=== PATIENT | female | born 1945 | race Caucasian/White ===

== ENCOUNTER 2022-03-15 11:32 | Inpatient (IN) ==
--- NOTE | 2022-03-15 11:58 | Emergency Department Note ---
History of Present Illness General Chief complaint: Shortness of Breath/Dyspnea Stated complaint: SOB Time Seen by Provider: 03/15/22 11:42 Source: patient History of Present Illness 76-year-old female with a history of atrial fibrillation presents via EMS with a 1 day history of shortness of breath, dyspnea on exertion. Patient denies cough cold congestion symptoms, denies fever. Patient states that the shortness of breath reportedly worsened this morning. Patient called EMS she was given a DuoNeb and an albuterol inhaler treatment prior to arrival. Patient was also started on oxygen reportedly her pulse ox may have been in the low 80s. Patient states much improved after the oxygen. There are no other mitigating or alleviating factors Home Medications Medication Instructions Recorded Confirmed Type acetaminophen 500 mg tablet 1,000 mg PO BID PRN 03/15/22 03/15/22 History bupropion HCl 300 mg 24 hr tablet, 300 mg PO DAILY 03/15/22 03/15/22 History extended release escitalopram oxalate 20 mg tablet 20 mg PO DAILY 03/15/22 03/15/22 History furosemide 40 mg tablet See Rx Instructions .ROUTE .COMPLEX 03/15/22 03/15/22 History lisinopril 20 mg tablet 20 mg PO DAILY 03/15/22 03/15/22 History metoprolol tartrate 25 mg tablet 25 mg PO BID 03/15/22 03/15/22 History montelukast 10 mg tablet 10 mg PO QPM 03/15/22 03/15/22 History multivitamin 1 tab PO DAILY 03/15/22 03/15/22 History oxybutynin chloride 15 mg 15 mg PO DAILY 03/15/22 03/15/22 History tablet,extended release 24 hr pregabalin 100 mg capsule 100 mg PO BID 03/15/22 03/15/22 History warfarin 2.5 mg tablet 2.5 mg PO [id number] 03/15/22 03/15/22 History warfarin 5 mg tablet 5 mg PO 2XWK 03/15/22 03/15/22 History Allergies Allergy/AdvReac Type Severity Reaction Status Date / Time Penicillins Allergy Intermediate HIVES Verified 03/15/22 14:28 Sulfa (Sulfonamide Allergy Unknown ` Verified 03/15/22 14:28 Antibiotics) aspirin AdvReac Severe BLEEDING Verified 03/15/22 14:28 ULCER Past Med/Surg History Social History Smoking Status: Former smoker Hx Alcohol Use: No Hx Substance Use: No Communication Ability: Effective Tool Adjuster Required: No Beliefs That Will Affect Care: None Current Living Situation: Alone Current Living Situation Comment: friend helps with grocery shopping, takes van to appointments Feels Safe at Home: Yes Assistive Devices: Glasses and Walker Immunizations: Medical history atrial fibrillation, hypertension, high cholesterol, melanoma; surgical history left great toe amputation; Social history non-smoker Review of Systems A total of 10 systems reviewed and were otherwise negative Constitutional: no fever Cardiovascular: + dyspnea, + dyspnea on exertion and + orthopnea; no chest pain Integumentary: + rash, + non-healing lesions and + skin ulcer Physical Exam Vital Signs Vital Signs - 24 hr 03/15/22 11:45 03/15/22 11:47 03/15/22 11:51 Temperature 37.1 C Temperature Source Oral Pulse Rate 112 H 112 H Pulse Rate [Right Finger] Pulse Rate from SpO2 Sensor 109 H Pulse Rhythm Irregular Pulse Rhythm [Right Finger] Pulse Strength Normal Pulse Strength [Right Finger] Respiratory Rate 23 26 H Respiratory Effort / Characteristics Spontaneous Respiratory Depth Deep Respiratory Pattern Tachypnea Blood Pressure 117/89 Blood Pressure [Left Arm] Blood Pressure Mean 98 Blood Pressure Mean [Left Arm] Blood Pressure Position Lying Blood Pressure Position [Left Arm] Pulse Oximetry 100 100 Oxygen Delivery Method Nasal Cannula Nasal Cannula Oxygen Flow Rate 5 2 Sepsis Recent Fever Within 48 Hours No Sepsis New/Unexplained Change in Mental Status No Sepsis Action Taken by Nursing MD Previously Notified Oxygen Flow Rate - Titration 2 Pulse Oximetry Post Tiitration 97 03/15/22 12:00 03/15/22 12:27 03/15/22 12:30 Temperature Temperature Source Pulse Rate 112 H 112 H 118 H Pulse Rate [Right Finger] Pulse Rate from SpO2 Sensor 120 H 117 H Pulse Rhythm Pulse Rhythm [Right Finger] Pulse Strength Pulse Strength [Right Finger] Respiratory Rate 32 H 18 Respiratory Effort / Characteristics Respiratory Depth Respiratory Pattern Blood Pressure 117/89 Blood Pressure [Left Arm] Blood Pressure Mean Blood Pressure Mean [Left Arm] Blood Pressure Position Blood Pressure Position [Left Arm] Pulse Oximetry 94 96 Oxygen Delivery Method Oxygen Flow Rate Sepsis Recent Fever Within 48 Hours Sepsis New/Unexplained Change in Mental Status Sepsis Action Taken by Nursing Oxygen Flow Rate - Titration Pulse Oximetry Post Tiitration 03/15/22 12:40 03/15/22 13:00 03/15/22 13:01 Temperature Temperature Source Pulse Rate 98 H 93 H 95 H Pulse Rate [Right Finger] 90 Pulse Rate from SpO2 Sensor 99 H 94 H 101 H Pulse Rhythm Pulse Rhythm [Right Finger] Irregular Pulse Strength Pulse Strength [Right Finger] Normal Respiratory Rate 16 24 22 Respiratory Effort / Characteristics Non-Labored Respiratory Depth Normal Respiratory Pattern Regular Blood Pressure 122/86 98/74 L Blood Pressure [Left Arm] 98/74 L Blood Pressure Mean 98 82 Blood Pressure Mean [Left Arm] 82 Blood Pressure Position Blood Pressure Position [Left Arm] Lying Pulse Oximetry 92 98 97 Oxygen Delivery Method Room Air Oxygen Flow Rate Sepsis Recent Fever Within 48 Hours Sepsis New/Unexplained Change in Mental Status Sepsis Action Taken by Nursing Oxygen Flow Rate - Titration Pulse Oximetry Post Tiitration 03/15/22 13:30 03/15/22 14:00 03/15/22 14:01 Temperature Temperature Source Pulse Rate 99 H 103 H 96 H Pulse Rate [Right Finger] Pulse Rate from SpO2 Sensor 93 H 100 H 101 H Pulse Rhythm Pulse Rhythm [Right Finger] Pulse Strength Pulse Strength [Right Finger] Respiratory Rate 22 26 H 21 Respiratory Effort / Characteristics Respiratory Depth Respiratory Pattern Blood Pressure 91/63 L 90/57 L Blood Pressure [Left Arm] Blood Pressure Mean 72 68 Blood Pressure Mean [Left Arm] Blood Pressure Position Blood Pressure Position [Left Arm] Pulse Oximetry 93 96 91 Oxygen Delivery Method Oxygen Flow Rate Sepsis Recent Fever Within 48 Hours Sepsis New/Unexplained Change in Mental Status Sepsis Action Taken by Nursing Oxygen Flow Rate - Titration Pulse Oximetry Post Tiitration VITAL SIGNS - Vital signs and nursing notes were reviewed. GENERAL -76-year-old female appearing her stated age who is in no acute distress. Communicates well with provider and answers questions appropriately. SKIN -multiple skin lesions and ulcerative lesions to the bilateral lower extremities HEAD - NC/AT. EYES - PERRL with EOMI bilaterally. Sclera anicteric. Palpebral conjunctiva pink and moist with no injection noted. EARS - No deformities of external structures noted on gross examination bilaterally. NOSE - Midline and without cyanosis. No epistaxis or purulent drainage noted. Septum midline without deviation or septal hematoma noted. MOUTH/OROPHARYNX - Without perioral cyanosis. Buccal mucosa pink and moist and without leukoplakia. Tongue midline with equal elevation of palate bilaterally. No tonsillar hypertrophy, erythema, or exudates noted. NECK - Neck with FROM. Supple to palpation.No lymphadenopathy noted. No nuchal rigidity. LUNGS - Chest wall symmetric without accessory muscle use, intercostals retractions, or central cyanosis. Normal vesicular breath sounds CTA B/L. No wheezes, rales, or rhonchi appreciated. CARDIAC - Irregularly irregular with S1/S2. No murmur, rubs, or gallops ap preciated. ABDOMEN - Abdominal contour soft without pulsations or visible masses. BS normoactive all four quadrants. No tenderness, palpable masses, hepatosplenomegaly, or ascites noted. EXTREMITIES - No clubbing or peripheral cyanosis. Bilateral lower extremity edema, multiple skin lesions in the anterior shins and foot +5/5 strength noted in UE/LE bilaterally. NEUROLOGIC - Cranial nerves II through XII grossly intact. Sensory intact to light touch throughout.. PSYCH - A&Ox3 and cooperates fully with examiner. Pt is very pleasant and interacts well with examiner. Course Reevaluation(s) Reevaluation #1: Patient was started on IV Lopressor, IV Lasix, oxygen, and was less than 100, case was discussed with the [facility] hospitalist for admission at 1339 Administered Medications Miscellaneous (Patient's Height And/Or Weight Needed) 1 ea N/A Q2H CARLOS ENRIQUE Stop: 03/15/22 17:30 Last Admin: 03/15/22 16:44 Dose: Not Given Documented by: Discontinued Medications Furosemide (Furosemide 40 Mg/4 Ml Vial) 40 mg IV ONE ONE Stop: 03/15/22 12:20 Last Admin: 03/15/22 12:27 Dose: 40 mg Documented by: [id number] Ioversol (Optiray 320 125ml) 119 ml IV ONCE ONE Stop: 03/15/22 14:49 Last Admin: 03/15/22 14:48 Dose: 119 ml Documented by: [id number] Metoprolol Tartrate (Metoprolol Tartrate 1 Mg/Ml Vial) 5 mg IV NOW STA; Protocol Stop: 03/15/22 12:02 Last Admin: 03/15/22 12:27 Dose: 5 mg Documented by: [id number] Critical Care Time Critical Care Time: Yes Total Critical Care Time: 35 Medical Decision Making Medical Records Attestation: I reviewed the patient's medical records. Home Medications Current Medication List: was personally reviewed by me Laboratory Data Attestation: I reviewed the patient's lab results. Result diagrams: 03/15/22 11:49 03/15/22 11:49 Lab Results 03/15/22 03/15/22 03/15/22 Range/Units 11:49 11:49 11:49 WBC 9.34 (4.8-10.8) K/uL RBC 3.57 L (4.2-5.4) M/uL Hgb 11.7 L (12.0-16.0) g/dL Hct 35.6 L (37-47) % MCV 99.7 (80-100) fL MCH 32.8 (25-34) pg MCHC 32.9 (32-36) g/dL RDW Std Deviation 55.3 H (36.4-46.3) fL RDW Coeff of Shoshana 15.2 H (11.5-14.5) % Plt Count 234 (130-400) K/uL MPV 10.5 H (7.4-10.4) fL Immature Gran % (Auto) 0.3 % Neut % (Auto) 84.6 % Lymph % (Auto) 6.9 % Coffey % (Auto) 7.1 % Eos % (Auto) 0.9 % Baso % (Auto) 0.2 % Neut # (Auto) 7.91 H (1.4-6.5) K/uL Lymph # (Auto) 0.64 L (1.2-3.4) K/uL Coffey # (Auto) 0.66 H (0.11-0.59) K/uL Eos # (Auto) 0.08 (0-0.5) K/uL Baso # (Auto) 0.02 (0-0.2) K/uL Immature Gran # (Auto) 0.03 H (0.00-0.02) K/uL PT Cancelled INR Cancelled APTT Cancelled PTT Ratio Cancelled D-Dimer (0-500) ug/L FEU Sodium (136-145) mmol/L Potassium (3.5-5.1) mmol/L Chloride (98-107) mmol/L Carbon Dioxide (21-32) mmol/L Anion Gap (3-11) BUN (6-23) mg/dl Creatinine (0.6-1.2) mg/dl Est Cr Clr Drug Dosing Est GFR ( Amer) ml/min Est GFR (Non-Af Amer) ml/min BUN/Creatinine Ratio (10-20) Glucose (70-99(Fasting)) mg/dl Calcium (8.5-10.1) mg/dl Total Bilirubin (0.2-1.0) mg/dl AST (13-39) U/L ALT (7-52) U/L Alkaline Phosphatase (34-104) U/L Troponin I High Sens 15.1 H (0-14) pg/ml B-Natriuretic Peptide (0-100) pg/ml Total Protein (6.0-8.3) gm/dl Albumin (3.4-5.0) gm/dl Globulin (2.5-4.0) gm/dl Albumin/Globulin Ratio (0.9-2) SARS-CoV-2, RNA, NAAT (NEGATIVE) 03/15/22 03/15/22 03/15/22 Range/Units 11:49 11:59 12:21 WBC (4.8-10.8) K/uL RBC (4.2-5.4) M/uL Hgb (12.0-16.0) g/dL Hct (37-47) % MCV (80-100) fL MCH (25-34) pg MCHC (32-36) g/dL RDW Std Deviation (36.4-46.3) fL RDW Coeff of Shoshana (11.5-14.5) % Plt Count (130-400) K/uL MPV (7.4-10.4) fL Immature Gran % (Auto) % Neut % (Auto) % Lymph % (Auto) % Coffey % (Auto) % Eos % (Auto) % Baso % (Auto) % Neut # (Auto) (1.4-6.5) K/uL Lymph # (Auto) (1.2-3.4) K/uL Coffey # (Auto) (0.11-0.59) K/uL Eos # (Auto) (0-0.5) K/uL Baso # (Auto) (0-0.2) K/uL Immature Gran # (Auto) (0.00-0.02) K/uL PT INR APTT PTT Ratio D-Dimer (0-500) ug/L FEU Sodium 140 (136-145) mmol/L Potassium 3.9 (3.5-5.1) mmol/L Chloride 108 H (98-107) mmol/L Carbon Dioxide 25 (21-32) mmol/L Anion Gap 7 (3-11) BUN 39 H (6-23) mg/dl Creatinine 0.73 (0.6-1.2) mg/dl Est Cr Clr Drug Dosing Not Reportable Est GFR ( Amer) 94.0 ml/min Est GFR (Non-Af Amer) 81.1 ml/min BUN/Creatinine Ratio 53.4 H (10-20) Glucose 116 H (70-99(Fasting)) mg/dl Calcium 9.1 (8.5-10.1) mg/dl Total Bilirubin 0.8 (0.2-1.0) mg/dl AST 17 (13-39) U/L ALT 13 (7-52) U/L Alkaline Phosphatase 60 (34-104) U/L Troponin I High Sens (0-14) pg/ml B-Natriuretic Peptide 92 (0-100) pg/ml Total Protein 6.0 (6.0-8.3) gm/dl Albumin 3.5 (3.4-5.0) gm/dl Globulin 2.5 (2.5-4.0) gm/dl Albumin/Globulin Ratio 1.4 (0.9-2) SARS-CoV-2, RNA, NAAT NEGATIVE (NEGATIVE) 03/15/22 Range/Units 12:21 WBC (4.8-10.8) K/uL RBC (4.2-5.4) M/uL Hgb (12.0-16.0) g/dL Hct (37-47) % MCV (80-100) fL MCH (25-34) pg MCHC (32-36) g/dL RDW Std Deviation (36.4-46.3) fL RDW Coeff of Shoshana (11.5-14.5) % Plt Count (130-400) K/uL MPV (7.4-10.4) fL Immature Gran % (Auto) % Neut % (Auto) % Lymph % (Auto) % Coffey % (Auto) % Eos % (Auto) % Baso % (Auto) % Neut # (Auto) (1.4-6.5) K/uL Lymph # (Auto) (1.2-3.4) K/uL Coffey # (Auto) (0.11-0.59) K/uL Eos # (Auto) (0-0.5) K/uL Baso # (Auto) (0-0.2) K/uL Immature Gran # (Auto) (0.00-0.02) K/uL PT 14.9 H INR 1.4 H APTT 29.1 PTT Ratio 1.1 D-Dimer 840 H* (0-500) ug/L FEU Sodium (136-145) mmol/L Potassium (3.5-5.1) mmol/L Chloride (98-107) mmol/L Carbon Dioxide (21-32) mmol/L Anion Gap (3-11) BUN (6-23) mg/dl Creatinine (0.6-1.2) mg/dl Est Cr Clr Drug Dosing Est GFR ( Amer) ml/min Est GFR (Non-Af Amer) ml/min BUN/Creatinine Ratio (10-20) Glucose (70-99(Fasting)) mg/dl Calcium (8.5-10.1) mg/dl Total Bilirubin (0.2-1.0) mg/dl AST (13-39) U/L ALT (7-52) U/L Alkaline Phosphatase (34-104) U/L Troponin I High Sens (0-14) pg/ml B-Natriuretic Peptide (0-100) pg/ml Total Protein (6.0-8.3) gm/dl Albumin (3.4-5.0) gm/dl Globulin (2.5-4.0) gm/dl Albumin/Globulin Ratio (0.9-2) SARS-CoV-2, RNA, NAAT (NEGATIVE) Imaging Data Radiologist's Impression: Chest X-Ray 03/15/22 11:51 XR chest 1V portable HISTORY: 76 years-old Female Dyspnea acute shortness of breath COMPARISON: Chest radiograph 04/17/2012 TECHNIQUE: Portable AP view of the chest FINDINGS: Cardiac silhouette is enlarged. Atherosclerosis of the aorta. Bilateral reticular interstitial opacities. No pneumothorax, large pleural effusion or lobar airspace consolidation. Degenerative changes of the shoulders and spine. IMPRESSION: Cardiomegaly with bilateral reticular interstitial opacities. Pulmonary edema versus interstitial pneumonitis considered. ACT 112: Negative or not required by law. The above report was generated using voice recognition software. It may contain grammatical, syntax or spelling errors. Electronically signed by: Binu Jaime M.D. 03/15/2022 12:15 PM Chest CTA 03/15/22 14:09 CT angio chest PE protocol CT DOSE: 1068.42 mGy.cm HISTORY: 76 years-old Female with sob, elevated dimer. Acute shortness of breath with elevated d-dimer TECHNIQUE: Multiple CTA images of the chest were obtained after the intravenous administration of 119 ml Optiray. Coronal and sagittal MIPS were obtained from the axial data set and were submitted for review. All measurements were obtained according to NASCET criteria. A dose lowering technique was utilized adhering to the principles of ALARA. COMPARISON: Chest CT 12/23/2006. FINDINGS: CTA: Moderate cardiomegaly. Moderate coronary artery calcifications. Atherosclerosis of the thoracic aorta without aneurysm. Suboptimal evaluation of the pulmonary artery secondary to respiratory motion artifact. No central pulmonary emboli identified. CT CHEST: No dominant thyroid nodule is seen. No pathologically adenopathy by CT size criteria. 3 mm subpleural solid nodule of the right lung apex on image 203. Mild bilateral groundglass densities with mosaic attenuation. 3 m solid nodule right lower lobe, image 123. Mild linear subsegmental atelectasis/scarring of the left lung base. The central airways are patent. Small hiatal hernia. Unremarkable soft tissues. Degenerative changes of the shoulders and spine. No acute fracture or destructive bone lesion identified. IMPRESSION: 1. Cardiomegaly without central pulmonary emboli identified. The study is limited secondary to respiratory motion artifact. 2. Mild bilateral atelectasis with air trapping. 3. There are two low suspicion 3 mm solid nodules noted within the right lung. 4. Small hiatal hernia. Please refer to below summary of Fleischner criteria recommendations for follow- up of incidental CT nodules (Grace Montoya, Guidelines for management of small pulmonary nodules detected on CT scans: A statement from the Fleischner Society, Radiology 237: [phone].) SOLID NODULES Multiple nodules size: <6 mm * Low risk patients: no routine follow-up * high risk patients: optional CT at 12 months Note: newly detected indeterminate nodule in persons 35 years of age or older. * Low risk patients: minimal or absent history of smoking and/or other known risk factors * high risk patients: history of smoking or of other known risk factors (e.g. first degree relative with lung cancer, or exposure to asbestos, radon, uranium) * if a nodule up to 8 mm is partly solid or is ground glass further follow-up is required after 24 months to exclude possible slow growing adenocarcinoma (KARL) ACT 112: Negative or not required by law. The above report was generated using voice recognition software. It may contain grammatical, syntax or spelling errors. Electronically signed by: Binu Jaime M.D. 03/15/2022 3:52 PM ECG Data Attestation: I personally reviewed and interpreted this ECG as follows: Additional Comments: EKG interpreted by me is rapid atrial fibrillation rate of [address] segment elevation or depression normal axis poor baseline MDM Narrative Medical decision making -differential diagnosis include rapid A. fib, CHF, pneumonia metabolic derangement, anemia; plan is to check a cardiac work-up Impression & Plan Congestive heart failure, Rapid atrial fibrillation Discharge Plan Visit Data Chief Complaint: Shortness of Breath/Dyspnea Stated Complaint: SOB ED Provider: Misael Che Discharge Problem: Congestive heart failure, Rapid atrial fibrillation Patient Disposition: Admitted As Inpatient Discharge Instructions Interventions: ED Discharge Assessment Last Done: 03/15/22 15:50
[2022-03-15] MEDS ORDERED: METOPROLOL TARTRATE 1 MG/ML VIAL IV STA (12:01)
[2022-03-15 12:03] LABS: Basophils # (auto) 0.02 K/uL (0-0.2); Basophils % (auto) 0.2 %; Eosinophils # (auto) 0.08 K/uL (0-0.5); Eosinophils % (auto) 0.9 %; Hematocrit (blood only) 35.6 % (37-47); Hemoglobin 11.7 g/dL (12.0-16.0); Immature Granulocytes # (auto) 0.03 K/uL (0.00-0.02); Immature Granulocytes % (auto) 0.3 %; Lymphocytes # (auto) 0.64 K/uL (1.2-3.4); Lymphocytes % (auto) 6.9 %; Mean Corpuscular Hemoglobin 32.8 pg (25-34); Mean Corpuscular Hgb Conc 32.9 g/dL (32-36); Mean Corpuscular Volume 99.7 fL (80-100); Mean Platelet Volume 10.5 fL (7.4-10.4); Monocytes # (auto) 0.66 K/uL (0.11-0.59); Monocytes % (auto) 7.1 %; Neutrophils # (auto) 7.91 K/uL (1.4-6.5); Neutrophils % (auto) 84.6 %; Platelet Count 234 K/uL (130-400); RDW Coefficient of Variation 15.2 % (11.5-14.5); RDW Standard Deviation 55.3 fL (36.4-46.3); Red Blood Count 3.57 M/uL (4.2-5.4); White Blood Count 9.34 K/uL (4.8-10.8)
--- NOTE | 2022-03-15 12:17 | XRay Report ---
XR chest 1V portable HISTORY: 76 years-old Female Dyspnea acute shortness of breath COMPARISON: Chest radiograph 04/17/2012 TECHNIQUE: Portable AP view of the chest FINDINGS: Cardiac silhouette is enlarged. Atherosclerosis of the aorta. Bilateral reticular interstitial opacit ies. No pneumothorax, large pleural effusion or lobar airspace consolidation. Degenerative changes of the shoulders and spine. IMPRESSION: Cardiomegaly with bilateral reticular interstitial opacities. Pulmonary edema versus inte rstitial pneumonitis considered. ACT 112: Negative or not required by law. The above report was generated using voice recognition software. It may contain grammatical, syntax o r spelling errors. Electronically signed by: Binu Jaime M.D. 03/15/2022 12:15 PM
[2022-03-15] MEDS ORDERED: FUROSEMIDE 40 MG/4 ML VIAL IV ONE (12:19)
[2022-03-15 12:28] LABS: Alanine Aminotransferase 13 U/L (7-52); Albumin Globulin Ratio 1.4 (0.9-2); Albumin Level 3.5 gm/dl (3.4-5.0); Alkaline Phosphatase 60 U/L (34-104); Anion Gap 7 (3-11); Aspartate Aminotransferase 17 U/L (13-39); BUN Creatinine Ratio 53.4 (10-20); Bilirubin,Total 0.8 mg/dl (0.2-1.0); Blood Urea Nitrogen 39 mg/dl (6-23); Calcium 9.1 mg/dl (8.5-10.1); Carbon Dioxide 25 mmol/L (21-32); Chloride 108 mmol/L (98-107); Est GFR (Non-African American) 81.1 ml/min; Globulin 2.5 gm/dl (2.5-4.0); Glucose 116 mg/dl (70-99(Fasting)); Potassium 3.9 mmol/L (3.5-5.1); Sodium 140 mmol/L (136-145)
[2022-03-15 12:45] LABS: INR 1.4 (0.9-1.1); Partial Thromboplastin Ratio 1.1; Partial Thromboplastin Time 29.1 Seconds (21.0-31.0); Prothrombin Time 14.9 Seconds (9.0-12.0)
[2022-03-15 13:43] LABS: Appearance Urine Clear (Clear); Bacteria Urine Automated Negative (Negative); Bilirubin Urine Negative (Negative); Blood Urine Trace (Negative); Cast Urine Automated 0 /lpf (0-5); Color Urine Yellow; Glucose Urine UA Negative (Negative); Ketones Urine Trace (Negative); Leukocyte Esterase Urine Negative (Negative); Nitrite Urine Negative (Negative); Protein Urine Negative (Negative); RBC Urine Automated 0-4 /hpf (0-4); Specific Gravity Urine 1.009 (1.000-1.030); Urobilinogen Urine Negative (Negative); pH Urine 5.5 (4.5-7.5)
[2022-03-15 14:05] LABS: D Dimer 840 ug/L FEU (0-500)
--- NOTE | 2022-03-15 14:42 | History & Physical Report ---
Date of Service March 15, 2022 Assessment & Plan (1) Shortness of breath: (2) Atrial fibrillation: (3) Hypertension: (4) Subtherapeutic international normalized ratio (INR): (5) Leg wound, left: (6) Neuropathy: (7) Major depression, chronic: Plan: Patient presented with shortness of breath at rest with palpitations for the past day. Also reported some diarrhea over the past few days. Patient has chronic leg edema which is unchanged as well as wounds in the legs. Chest x-ray on presentation reported cardiomegaly with bilateral reticular interstitial opacities. BNP is 92. However, patient is morbidly obese. DDimer is 840 Patient did report reducing her dose of Lasix recently. Hence, pulmonary edema is possible However, patient has persistent Afib and INR is subtherapeutic. CT PE though limited due to respiratory motion artifact, did not show central PE Patient got IV Lasix in ER. Will continue home lasix IV Will monitor BM and send for c diff if still having diarrhea EKG showed Afib with RVR Trop HS is borderline at 15pg/ml. Will check again Last Echo in 02/2021 showed normal EF of 55%, severely dilated LA, moderately dilated RA, moderate MR and mild AR. Patient takes warfarin 5 mg on Wednesdays and 2.5 mg other days. Last INR check on 03/10/2022 was supratherapeutic at 3.841 patient was advised to hold Coumadin on 03/11/2022 and resume regular dose which patient reported she did. In view of subtherapeutic INR, will give warfarin 5 mg today and continue home dose Patient has chronic leg edema and orthopnea which she reports has not worsened Will hold home lisinopril for now as BP is running low normal Continue metoprolol Cardiology consult For patient's leg wounds. 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 Wound care consult Continue home lyrica Continue escitalopram and bupropion Continue oxybutynin History of Present Illness Chief Complaint: Shortness of breath Primary Care Provider: Brigette Moser DO 76-year-old woman with history of hypertension, chronic atrial fibrillation on warfarin, obesity,Reported history of melanoma on chemo who presented with shortness of breath started a day ago. Patient reported that she started having shortness of breath yesterday was occurring at rest. This was also associated with palpitations. She denied any cough, sore throat, congestion. She reports chronic orthopnea as she sleeps in a recliner. Patient reported that for the past 3 to 4 days she has been having loose stool which started after she ate some food. Denies any abdominal pain, fevers, chills, nausea, vomiting. Had only 1 bowel movement prior to presentation today. Denied any dysuria, frequency, urgency, hematuria. Patient has incontinence which she is on oxybutynin. Has chronic wounds in the legs and leg swelling. Patient reported that she cut down her Lasix 2 days ago to 40 mg daily only due to diarrhea Per ER physician, patient was noted to be hypoxic by EMS in the 80s and had to be put on 5 L of oxygen. Patient is not usually on oxygen at home. FSH Mother/Father - Hypertesnion Father - cancer Denied smoking, alcohol illicit drug use Lives alone and followed by Nichelle at home Allergies Allergy/AdvReac Type Severity Reaction Status Date / Time Penicillins Allergy Intermediate HIVES Verified 03/15/22 14:28 Sulfa (Sulfonamide Allergy Unknown ` Verified 03/15/22 14:28 Antibiotics) aspirin AdvReac Severe BLEEDING Verified 03/15/22 14:28 ULCER Home Medications Medication Instructions Recorded Confirmed Type acetaminophen 500 mg tablet 1,000 mg PO BID PRN 03/15/22 03/15/22 History bupropion HCl 300 mg 24 hr tablet, 300 mg PO DAILY 03/15/22 03/15/22 History extended release escitalopram oxalate 20 mg tablet 20 mg PO DAILY 03/15/22 03/15/22 History furosemide 40 mg tablet See Rx Instructions .ROUTE .COMPLEX 03/15/22 03/15/22 History lisinopril 20 mg tablet 20 mg PO DAILY 03/15/22 03/15/22 History metoprolol tartrate 25 mg tablet 25 mg PO BID 03/15/22 03/15/22 History montelukast 10 mg tablet 10 mg PO QPM 03/15/22 03/15/22 History multivitamin 1 tab PO DAILY 03/15/22 03/15/22 History oxybutynin chloride 15 mg 15 mg PO DAILY 03/15/22 03/15/22 History tablet,extended release 24 hr pregabalin 100 mg capsule 100 mg PO BID 03/15/22 03/15/22 History warfarin 2.5 mg tablet 2.5 mg PO 5XWK 03/15/22 03/15/22 History warfarin 5 mg tablet 5 mg PO 2XWK 03/15/22 03/15/22 History Past Med/Surg History Social History Smoking Status: Never smoker Feels Safe at Home: Yes Review of Systems Review of Systems: As detailed in HPI Physical Exam Constitutional: + well hydrated and + obese; no acute distress Eyes: PERRL, conjunctivae normal, anicteric sclerae ENMT: external ear and nose normal, oropharynx normal Respiratory: Normal breathing. Not in respiratory distress. Diminished breath sounds posteriorly (limited due to body habitus) Cardiovascular: Rate/Rhythm: + irregularly irregular HR 98-110s during evaluation Gastrointestinal (Abdomen): normal bowel sounds, soft, nontender, no hepatosplenomegaly Musculoskeletal: Pedal edema multiple scab. Wound over right lateral leg. Left great toe missing. Wound at the site with dressing Neurologic: PERRL, EOMI, accommodation nl, no face palsy, no dysarthria Psychiatric: A+Ox3, euthymic affect Results & Data Results & Data ([facility]) Vital Signs (Past 12 Hours) Vital Signs Temp Pulse Pulse Resp BP BP Pulse Ox 03/15/22 13:00 90 24 98/74 L 95 03/15/22 12:27 112 H 117/89 03/15/22 11:47 37.1 C 112 H 26 H 117/89 100 Laboratory Results Abnormal lab results 03/15/22 03/15/22 03/15/22 Range/Units 11:49 11:49 11:49 RBC 3.57 L (4.2-5.4) M/uL Hgb 11.7 L (12.0-16.0) g/dL Hct 35.6 L (37-47) % RDW Std Deviation 55.3 H (36.4-46.3) fL RDW Coeff of Shoshana 15.2 H (11.5-14.5) % MPV 10.5 H (7.4-10.4) fL Neut # (Auto) 7.91 H (1.4-6.5) K/uL Lymph # (Auto) 0.64 L (1.2-3.4) K/uL [place] # (Auto) 0.66 H (0.11-0.59) K/uL Immature Gran # (Auto) 0.03 H (0.00-0.02) K/uL PT (9.0-12.0) Seconds INR (0.9-1.1) D-Dimer (0-500) ug/L FEU Chloride 108 H (98-107) mmol/L BUN 39 H (6-23) mg/dl BUN/Creatinine Ratio 53.4 H (10-20) Glucose 116 H (70-99(Fasting)) mg/dl Troponin I High Sens 15.1 H (0-14) pg/ml Urine Ketones (Negative) Urine Blood (Negative) U Epithel Cells (Auto) (0-5) /lpf 03/15/22 03/15/22 Range/Units 12:21 Unknown RBC (4.2-5.4) M/uL Hgb (12.0-16.0) g/dL Hct (37-47) % RDW Std Deviation (36.4-46.3) fL RDW Coeff of Shoshana (11.5-14.5) % MPV (7.4-10.4) fL Neut # (Auto) (1.4-6.5) K/uL Lymph # (Auto) (1.2-3.4) K/uL [place] # (Auto) (0.11-0.59) K/uL Immature Gran # (Auto) (0.00-0.02) K/uL PT 14.9 H (9.0-12.0) Seconds INR 1.4 H (0.9-1.1) D-Dimer 840 H* (0-500) ug/L FEU Chloride (98-107) mmol/L BUN (6-23) mg/dl BUN/Creatinine Ratio (10-20) Glucose (70-99(Fasting)) mg/dl Troponin I High Sens (0-14) pg/ml Urine Ketones Trace H (Negative) Urine Blood Trace H (Negative) U Epithel Cells (Auto) 5-10 H (0-5) /lpf Code Status & VTE Plan VTE Prophylaxis Plan VTE Prophylaxis will be ordered: Yes
[2022-03-15] MEDS ORDERED: OPTIRAY 320 125ml IV ONE (14:48)
--- NOTE | 2022-03-15 15:54 | CT Scan Report ---
CT angio chest PE protocol CT DOSE: 1068.42 mGy.cm HISTORY: 76 years-old Female with sob, elevated dimer. Acute shortness of breath with elevated d-di reinier TECHNIQUE: Multiple CTA images of the chest were obtained after the intravenous administration of 119 ml Optiray. Coronal and sagittal MIPS were obtained from the axial data set and were submitted for review. All measurements were obtained according to NASCET criteria. A dose lowering technique was u tilized adhering to the principles of ALARA. COMPARISON: Chest CT 12/23/2006. FINDINGS: CTA: Moderate cardiomegaly. Moderate coronary artery calcifications. Atherosclerosis of the thoracic aorta without aneurysm. Suboptimal evaluation of the pulmonary artery secondary to respiratory motion yancy fact. No central pulmonary emboli identified. CT CHEST: No dominant thyroid nodule is seen. No pathologically adenopathy by CT size criteria. 3 mm subpleura l solid nodule of the right lung apex on image 203. Mild bilateral groundglass densities with mosaic attenuation. 3 m solid nodule right lower lobe, image 123. Mild linear subsegmental atelectasis/scarr ing of the left lung base. The central airways are patent. Small hiatal hernia. Unremarkable soft tissues. Degenerative changes of the shoulders and spine. No acute fracture or destructive bone lesion identified. IMPRESSION: 1. Cardiomegaly without central pulmonary emboli identified. The study is limited secondary to respir atory motion artifact. 2. Mild bilateral atelectasis with air trapping. 3. There are two low suspicion 3 mm solid nodules noted within the right lung. 4. Small hiatal hernia. Please refer to below summary of Fleischner criteria recommendations for follow-up of incidental CT n odules (Grace Montoya, Guidelines for management of small pulmonary nodules detected on CT scans: A sta tement from the Fleischner Society, Radiology 237: [phone].) SOLID NODULES Multiple nodules size: <6 mm * Low risk patients: no routine follow-up * high risk patients: optional CT at 12 months Note: newly detected indeterminate nodule in persons 35 years of age or older. * Low risk patients: minimal or absent history of smoking and/or other known risk factors * high risk patients: history of smoking or of other known risk factors (e.g. first degree relative with lung cancer, or exposure to asbestos, radon, uranium) * if a nodule up to 8 mm is partly solid or is ground glass further follow-up is required after 24 m onths to exclude possible slow growing adenocarcinoma (KARL) ACT 112: Negative or not required by law. The above report was generated using voice recognition software. It may contain grammatical, syntax o r spelling errors. Electronically signed by: Binu Jaime M.D. 03/15/2022 3:52 PM
[2022-03-15] MEDS ORDERED: WARFARIN SOD 5 MG TAB PO ONE (16:22)
[2022-03-15] MEDS ORDERED: PATIENT'S HEIGHT AND/OR WEIGHT NEEDED SCH (16:30)
[2022-03-15] MEDS: ACETAMINOPHEN 500 MG TAB PO PRN (21:43)
[2022-03-15] MEDS: PREGABALIN 100 MG CAP PO SCH (21:43)
[2022-03-15] MEDS: METOPROLOL TARTRATE 25 MG TAB PO SCH (21:47)
[2022-03-15] MEDS: MONTELUKAST SODIUM 10 MG TABLET PO SCH (21:48)
[2022-03-16 07:07] LABS: Hematocrit (blood only) 31.7 % (37-47); Hemoglobin 10.2 g/dL (12.0-16.0); Mean Corpuscular Hemoglobin 32.7 pg (25-34); Mean Corpuscular Hgb Conc 32.2 g/dL (32-36); Mean Corpuscular Volume 101.6 fL (80-100); Mean Platelet Volume 10.7 fL (7.4-10.4); Platelet Count 231 K/uL (130-400); RDW Coefficient of Variation 15.6 % (11.5-14.5); RDW Standard Deviation 56.9 fL (36.4-46.3); Red Blood Count 3.12 M/uL (4.2-5.4); White Blood Count 6.05 K/uL (4.8-10.8)
[2022-03-16 07:19] LABS: INR 1.4 (0.9-1.1); Prothrombin Time 14.8 Seconds (9.0-12.0)
[2022-03-16 07:26] LABS: BUN Creatinine Ratio 34.9 (10-20); Creatinine Clr Calc Pharmacy 63.5 ml/min; Est GFR (African American) 59.9 ml/min; Est GFR (Non-African American) 51.7 ml/min; Potassium 3.6 mmol/L (3.5-5.1)
--- NOTE | 2022-03-16 08:33 | Cardiology Consultation ---
Date of Consultation March 16, 2022 Assessment & Plan (1) Acute on chronic diastolic HF (heart failure): (2) Pulmonary edema: (3) Atrial fibrillation with RVR: Patient admitted for worsening SOB, likely pulm vascular congestion/pulm edema possibly due to non compliance with meds, dietary indiscretion. Symptoms improved with several doses of IV diuretics. Wean supplemental O2 as tolerated. She has chronic/persistent afib. Rates elevated on arrival but improving. Will increase metoprolol to 25 mg - 1.5 tabs BID. Continue IV diuresis today and likely transition to oral later today or tomorrow, pending response. Add spironolactone 12.5 mg daily Resume oral furosemide on discharge with spironolactone. Case discussed with Dr. Pelletier. Will follow. Supervising Physician Co-Signing Physician Notes I have seen and examined the patient. I reviewed the medical record and discussed the case with Sanket. I agree with the plan as outlined above. History of Present Illness Reason for Consultation: SOB; Afib RVR; History of Chronic Afib Requesting Physician: Dr. Devries Attending Physician: Dr. Pelletier History of Present Illness Patient is a 76 year old female who was admitted to [facility] for complaints of worsening SOB. Patient is known to [facility], previously following with Dr. Garcia, with last clinic visit in 2019. History includes: 1. Chronic afib, rates controlled on chronic Coumadin for anticoagulation 2. Hypertension 3. Morbid Obesity 4. Chronic LE edema, venous stasis 5. Recent diagnosis of melanoma of the right leg, undergoing chemotherapy and following with wound clinic Patient presented to [facility] yesterday after 24 hours of worsening SOB over the weekend. Patient reports she ate some Monkey bread last week possibly causing GI upset with significant abdominal pain and diarrhea for several days. She is unsure if she took her medications during this time. She then developed worsening palpitations and SOB and came to ER. She was found to be in afib RVR (she has chronic afib) and possible mild pulm congestion on chest xray. She was treated with several doses of IV lasix since admission and she reports interval improvement in her symptoms since admission. SOB at baseline. Still wearing O2, but 98% on 2 L and can try to wean. No chest pain. No dizziness or lightheadedness. HR's have improved on telemetry, around 100 bpm. At time of consult, patient resting in bed comfortably. Denies acute complaints. SOB returned to baseline. No chest pain. No dizziness or lightheadedness. edema at baseline. Allergies Allergy/AdvReac Type Severity Reaction Status Date / Time Penicillins Allergy Intermediate HIVES Verified 03/15/22 14:28 Sulfa (Sulfonamide Allergy Unknown ` Verified 03/15/22 14:28 Antibiotics) aspirin AdvReac Severe BLEEDING Verified 03/15/22 14:28 ULCER Home Medications Medication Instructions Recorded Confirmed Type acetaminophen 500 mg tablet 1,000 mg PO BID PRN 03/15/22 03/15/22 History bupropion HCl 300 mg 24 hr tablet, 300 mg PO DAILY 03/15/22 03/15/22 History extended release escitalopram oxalate 20 mg tablet 20 mg PO DAILY 03/15/22 03/15/22 History furosemide 40 mg tablet See Rx Instructions .ROUTE .COMPLEX 03/15/22 03/15/22 History lisinopril 20 mg tablet 20 mg PO DAILY 03/15/22 03/15/22 History metoprolol tartrate 25 mg tablet 25 mg PO BID 03/15/22 03/15/22 History montelukast 10 mg tablet 10 mg PO QPM 03/15/22 03/15/22 History multivitamin 1 tab PO DAILY 03/15/22 03/15/22 History oxybutynin chloride 15 mg 15 mg PO DAILY 03/15/22 03/15/22 History tablet,extended release 24 hr pregabalin 100 mg capsule 100 mg PO BID 03/15/22 03/15/22 History warfarin 2.5 mg tablet 2.5 mg PO [id number] 03/15/22 03/15/22 History warfarin 5 mg tablet 5 mg PO [id number] 03/15/22 03/15/22 History Patient History Social History Smoking Status: Former smoker Hx Alcohol Use: No Hx Substance Use: No Communication Ability: Effective Learning Designer Required: No Beliefs That Will Affect Care: None marital status: Current Living Situation: Alone Current Living Situation Comment: friend helps with grocery shopping, takes van to appointments Feels Safe at Home: Yes Assistive Devices: Walker Review of Systems Review of Systems: All systems reviewed & are unremarkable except as noted in HPI & below Physical Exam Constitutional: WD/WN, vitals as above Eyes: PERRL, conjunctivae normal, anicteric sclerae Neck: trachea midline, no thyromegaly (thick neck) Respiratory: no respiratory distress Auscultation: + diminished lung sounds; no crackles and no rales Cardiovascular: Rate/Rhythm: + tachycardic and + irregularly irregular Heart Sounds: no murmur Vessels: no JVD Extremities: + edema (1+ b/l edema with chronic stasis changes. Right LE with erythema, ulcer) Gastrointestinal (Abdomen): normal bowel sounds, soft, nontender, no hepatosplenomegaly Neurologic: PERRL, EOMI, accommodation nl, no face palsy, no dysarthria Psychiatric: A+Ox3, euthymic affect Results & Data ([facility]) Vital Signs (Past 12 Hours) Vital Signs Temp Pulse Pulse Resp BP BP Pulse Ox 03/16/22 07:46 36.8 C 97 H 20 103/67 98 03/16/22 06:14 88 03/16/22 02:49 36.8 C 87 16 96/62 L 96 03/16/22 00:00 110 H 03/15/22 23:04 36.8 C 92 H 20 98/66 L 97 Laboratory Results 03/16/22 03/16/22 03/16/22 Range/Units 06:00 06:00 06:00 WBC 6.05 (4.8-10.8) K/uL RBC 3.12 L (4.2-5.4) M/uL Hgb 10.2 L (12.0-16.0) g/dL Hct 31.7 L (37-47) % MCV 101.6 H (80-100) fL MCH 32.7 (25-34) pg MCHC 32.2 (32-36) g/dL RDW Std Deviation 56.9 H (36.4-46.3) fL RDW Coeff of [place] 15.6 H (11.5-14.5) % Plt Count 231 (130-400) K/uL MPV 10.7 H (7.4-10.4) fL Immature Gran % (Auto) % Neut % (Auto) % Lymph % (Auto) % [place] % (Auto) % Eos % (Auto) % Baso % (Auto) % Neut # (Auto) (1.4-6.5) K/uL Lymph # (Auto) (1.2-3.4) K/uL [place] # (Auto) (0.11-0.59) K/uL Eos # (Auto) (0-0.5) K/uL Baso # (Auto) (0-0.2) K/uL Immature Gran # (Auto) (0.00-0.02) K/uL PT 14.8 H INR 1.4 H APTT PTT Ratio D-Dimer (0-500) ug/L FEU Sodium 142 (136-145) mmol/L Potassium 3.6 (3.5-5.1) mmol/L Chloride 108 H (98-107) mmol/L Carbon Dioxide 30 (21-32) mmol/L Anion Gap 4 (3-11) BUN 37 H (6-23) mg/dl Creatinine 1.06 D (0.6-1.2) mg/dl Est Cr Clr Drug Dosing 63.5 Est GFR ( Amer) 59.9 ml/min Est GFR (Non-Af Amer) 51.7 ml/min BUN/Creatinine Ratio 34.9 H (10-20) Glucose 100 H (70-99(Fasting)) mg/dl Calcium 9.0 (8.5-10.1) mg/dl Total Bilirubin (0.2-1.0) mg/dl AST (13-39) U/L ALT (7-52) U/L Alkaline Phosphatase (34-104) U/L Troponin I High Sens (0-14) pg/ml B-Natriuretic Peptide (0-100) pg/ml Total Protein (6.0-8.3) gm/dl Albumin (3.4-5.0) gm/dl Globulin (2.5-4.0) gm/dl Albumin/Globulin Ratio (0.9-2) Urine Color Urine Appearance (Clear) Urine pH (4.5-7.5) Ur Specific [place] (1.000-1.030) Urine Protein (Negative) Urine Glucose (UA) (Negative) Urine Ketones (Negative) Urine Blood (Negative) Urine Nitrite (Negative) Urine Bilirubin (Negative) Urine Urobilinogen (Negative) Ur Leukocyte Esterase (Negative) Urine WBC (Auto) (0-5) /hpf Urine RBC (Auto) (0-4) /hpf U Hyaline Cast (Auto) (0-5) /lpf U Epithel Cells (Auto) (0-5) /lpf Urine Bacteria (Auto) (Negative) SARS-CoV-2, RNA, NAAT (NEGATIVE) 03/15/22 03/15/22 03/15/22 Range/Units Unknown 17:07 12:21 WBC (4.8-10.8) K/uL RBC (4.2-5.4) M/uL Hgb (12.0-16.0) g/dL Hct (37-47) % MCV (80-100) fL MCH (25-34) pg MCHC (32-36) g/dL RDW Std Deviation (36.4-46.3) fL RDW Coeff of [place] (11.5-14.5) % Plt Count (130-400) K/uL MPV (7.4-10.4) fL Immature Gran % (Auto) % Neut % (Auto) % Lymph % (Auto) % [place] % (Auto) % Eos % (Auto) % Baso % (Auto) % Neut # (Auto) (1.4-6.5) K/uL Lymph # (Auto) (1.2-3.4) K/uL [place] # (Auto) (0.11-0.59) K/uL Eos # (Auto) (0-0.5) K/uL Baso # (Auto) (0-0.2) K/uL Immature Gran # (Auto) (0.00-0.02) K/uL PT 14.9 H INR 1.4 H APTT 29.1 PTT Ratio 1.1 D-Dimer 840 H* (0-500) ug/L FEU Sodium (136-145) mmol/L Potassium (3.5-5.1) mmol/L Chloride (98-107) mmol/L Carbon Dioxide (21-32) mmol/L Anion Gap (3-11) BUN (6-23) mg/dl Creatinine (0.6-1.2) mg/dl Est Cr Clr Drug Dosing Est GFR ( Amer) ml/min Est GFR (Non-Af Amer) ml/min BUN/Creatinine Ratio (10-20) Glucose (70-99(Fasting)) mg/dl Calcium (8.5-10.1) mg/dl Total Bilirubin (0.2-1.0) mg/dl AST (13-39) U/L ALT (7-52) U/L Alkaline Phosphatase (34-104) U/L Troponin I High Sens 15.1 H (0-14) pg/ml B-Natriuretic Peptide (0-100) pg/ml Total Protein (6.0-8.3) gm/dl Albumin (3.4-5.0) gm/dl Globulin (2.5-4.0) gm/dl Albumin/Globulin Ratio (0.9-2) Urine Color Yellow Urine Appearance Clear (Clear) Urine pH 5.5 (4.5-7.5) Ur Specific [place] 1.009 (1.000-1.030) Urine Protein Negative (Negative) Urine Glucose (UA) Negative (Negative) Urine Ketones Trace H (Negative) Urine Blood Trace H (Negative) Urine Nitrite Negative (Negative) Urine Bilirubin Negative (Negative) Urine Urobilinogen Negative (Negative) Ur Leukocyte Esterase Negative (Negative) Urine WBC (Auto) 1-5 (0-5) /hpf Urine RBC (Auto) 0-4 (0-4) /hpf U Hyaline Cast (Auto) 0 (0-5) /lpf U Epithel Cells (Auto) 5-10 H (0-5) /lpf Urine Bacteria (Auto) Negative (Negative) SARS-CoV-2, RNA, NAAT (NEGATIVE) 03/15/22 03/15/22 03/15/22 Range/Units 12:21 11:59 11:49 WBC (4.8-10.8) K/uL RBC (4.2-5.4) M/uL Hgb (12.0-16.0) g/dL Hct (37-47) % MCV (80-100) fL MCH (25-34) pg MCHC (32-36) g/dL RDW Std Deviation (36.4-46.3) fL RDW Coeff of [place] (11.5-14.5) % Plt Count (130-400) K/uL MPV (7.4-10.4) fL Immature Gran % (Auto) % Neut % (Auto) % Lymph % (Auto) % [place] % (Auto) % Eos % (Auto) % Baso % (Auto) % Neut # (Auto) (1.4-6.5) K/uL Lymph # (Auto) (1.2-3.4) K/uL [place] # (Auto) (0.11-0.59) K/uL Eos # (Auto) (0-0.5) K/uL Baso # (Auto) (0-0.2) K/uL Immature Gran # (Auto) (0.00-0.02) K/uL PT INR APTT PTT Ratio D-Dimer (0-500) ug/L FEU Sodium 140 (136-145) mmol/L Potassium 3.9 (3.5-5.1) mmol/L Chloride 108 H (98-107) mmol/L Carbon Dioxide 25 (21-32) mmol/L Anion Gap 7 (3-11) BUN 39 H (6-23) mg/dl Creatinine 0.73 (0.6-1.2) mg/dl Est Cr Clr Drug Dosing Not Reportable Est GFR ( Amer) 94.0 ml/min Est GFR (Non-Af Amer) 81.1 ml/min BUN/Creatinine Ratio 53.4 H (10-20) Glucose 116 H (70-99(Fasting)) mg/dl Calcium 9.1 (8.5-10.1) mg/dl Total Bilirubin 0.8 (0.2-1.0) mg/dl AST 17 (13-39) U/L ALT 13 (7-52) U/L Alkaline Phosphatase 60 (34-104) U/L Troponin I High Sens (0-14) pg/ml B-Natriuretic Peptide 92 (0-100) pg/ml Total Protein 6.0 (6.0-8.3) gm/dl Albumin 3.5 (3.4-5.0) gm/dl Globulin 2.5 (2.5-4.0) gm/dl Albumin/Globulin Ratio 1.4 (0.9-2) Urine Color Urine Appearance (Clear) Urine pH (4.5-7.5) Ur Specific [place] (1.000-1.030) Urine Protein (Negative) Urine Glucose (UA) (Negative) Urine Ketones (Negative) Urine Blood (Negative) Urine Nitrite (Negative) Urine Bilirubin (Negative) Urine Urobilinogen (Negative) Ur Leukocyte Esterase (Negative) Urine WBC (Auto) (0-5) /hpf Urine RBC (Auto) (0-4) /hpf U Hyaline Cast (Auto) (0-5) /lpf U Epithel Cells (Auto) (0-5) /lpf Urine Bacteria (Auto) (Negative) SARS-CoV-2, RNA, NAAT NEGATIVE (NEGATIVE) 03/15/22 03/15/22 03/15/22 Range/Units 11:49 11:49 11:49 WBC 9.34 (4.8-10.8) K/uL RBC 3.57 L (4.2-5.4) M/uL Hgb 11.7 L (12.0-16.0) g/dL Hct 35.6 L (37-47) % MCV 99.7 (80-100) fL MCH 32.8 (25-34) pg MCHC 32.9 (32-36) g/dL RDW Std Deviation 55.3 H (36.4-46.3) fL RDW Coeff of [place] 15.2 H (11.5-14.5) % Plt Count 234 (130-400) K/uL MPV 10.5 H (7.4-10.4) fL Immature Gran % (Auto) 0.3 % Neut % (Auto) 84.6 % Lymph % (Auto) 6.9 % [place] % (Auto) 7.1 % Eos % (Auto) 0.9 % Baso % (Auto) 0.2 % Neut # (Auto) 7.91 H (1.4-6.5) K/uL Lymph # (Auto) 0.64 L (1.2-3.4) K/uL [place] # (Auto) 0.66 H (0.11-0.59) K/uL Eos # (Auto) 0.08 (0-0.5) K/uL Baso # (Auto) 0.02 (0-0.2) K/uL Immature Gran # (Auto) 0.03 H (0.00-0.02) K/uL PT Cancelled INR Cancelled APTT Cancelled PTT Ratio Cancelled D-Dimer (0-500) ug/L FEU Sodium (136-145) mmol/L Potassium (3.5-5.1) mmol/L Chloride (98-107) mmol/L Carbon Dioxide (21-32) mmol/L Anion Gap (3-11) BUN (6-23) mg/dl Creatinine (0.6-1.2) mg/dl Est Cr Clr Drug Dosing Est GFR ( Amer) ml/min Est GFR (Non-Af Amer) ml/min BUN/Creatinine Ratio (10-20) Glucose (70-99(Fasting)) mg/dl Calcium (8.5-10.1) mg/dl Total Bilirubin (0.2-1.0) mg/dl AST (13-39) U/L ALT (7-52) U/L Alkaline Phosphatase (34-104) U/L Troponin I High Sens 15.1 H (0-14) pg/ml B-Natriuretic Peptide (0-100) pg/ml Total Protein (6.0-8.3) gm/dl Albumin (3.4-5.0) gm/dl Globulin (2.5-4.0) gm/dl Albumin/Globulin Ratio (0.9-2) Urine Color Urine Appearance (Clear) Urine pH (4.5-7.5) Ur Specific [place] (1.000-1.030) Urine Protein (Negative) Urine Glucose (UA) (Negative) Urine Ketones (Negative) Urine Blood (Negative) Urine Nitrite (Negative) Urine Bilirubin (Negative) Urine Urobilinogen (Negative) Ur Leukocyte Esterase (Negative) Urine WBC (Auto) (0-5) /hpf Urine RBC (Auto) (0-4) /hpf U Hyaline Cast (Auto) (0-5) /lpf U Epithel Cells (Auto) (0-5) /lpf Urine Bacteria (Auto) (Negative) SARS-CoV-2, RNA, NAAT (NEGATIVE) Diagnostic Findings EKG reviewed from admission: Afib with RVR, underlying artifact Telemetry reviewed: Atrial fibrillation with rates ranging 80-100 bpm, improved from admission. Chest xray on admission reviewed: IMPRESSION: Cardiomegaly with bilateral reticular interstitial opacities. Pulmonary edema versus interstitial pneumonitis considered. Chest CTA report reviewed from admission: IMPRESSION: 1. Cardiomegaly without central pulmonary emboli identified. The study is limited secondary to respiratory motion artifact. 2. Mild bilateral atelectasis with air trapping. 3. There are two low suspicion 3 mm solid nodules noted within the right lung. 4. Small hiatal hernia Echo report reviewed dated February 2021: Normal EF 55% LV filling cannot be assessed due to afib. Mildly dilated RV with normal function. Severely dilated LA Moderately dilated RA Mild AI. Moderate MR Mild TR Mildly increased PASP Normal aorta. Medications Administered Current Inpatient Medications Acetaminophen (Acetaminophen 500 Mg Tab) 1,000 mg PO BID PRN PRN Reason: Pain Stop: 04/14/22 16:21 Last Admin: 03/15/22 21:43 Dose: 1,000 mg Documented by: Bupropion HCl (Bupropion Xl 300 Mg Tabcr) 300 mg PO DAILY CARLOS ENRIQUE Stop: 04/15/22 08:59 Escitalopram Oxalate (Escitalopram Oxalate 20 Mg Tab) 20 mg PO DAILY CARLOS ENRIQUE Stop: 04/15/22 08:59 Furosemide (Furosemide 40 Mg/4 Ml Vial) 40 mg IV QAM CARLOS ENRIQUE Stop: 04/15/22 08:59 Furosemide (Furosemide Inj 20 Mg/2 Ml Vial) 20 mg IV DAILY@1700 CARLOS ENRIQUE Stop: 04/15/22 16:59 Metoprolol Tartrate (Metoprolol Tartrate 25 Mg Tab) 25 mg PO BID CARLOS ENRIQUE Stop: 04/14/22 20:59 Last Admin: 03/15/22 21:47 Dose: 25 mg Documented by: Montelukast Sodium (Montelukast Sodium 10 Mg Tablet) 10 mg PO QPM CARLOS ENRIQUE Stop: 04/14/22 20:59 Last Admin: 03/15/22 21:48 Dose: 10 mg Documented by: Multivitamins (Multivitamin Tab) 1 tab PO DAILY CARLOS ENRIQUE Stop: 04/15/22 08:59 Oxybutynin Chloride (Oxybutynin Chloride Xl 5 Mg Tabcr) 15 mg PO DAILY CARLOS ENRIQUE Stop: 04/15/22 08:59 Pregabalin (Pregabalin 100 Mg Cap) 100 mg PO BID CARLOS ENRIQUE Stop: 04/14/22 20:59 Last Admin: 03/15/22 21:43 Dose: 100 mg Documented by: Warfarin Sodium (Warfarin Sod 2.5 Mg Tab) 2.5 mg PO [id number]@1600 CARLOS ENRIQUE Stop: 04/16/22 15:59 Warfarin Sodium (Warfarin Sod 5 Mg Tab) 5 mg PO [id number]@1600 CARLOS ENRIQUE Stop: 04/15/22 15:59
[2022-03-16] MEDS: OXYBUTYNIN CHLORIDE XL 5 MG TABCR PO SCH (08:49)
[2022-03-16] MEDS: FUROSEMIDE 40 MG/4 ML VIAL IV SCH (08:50)
[2022-03-16] MEDS: MULTIVITAMIN TAB PO SCH (08:50)
[2022-03-16] MEDS: buPROPion XL 300 MG TABCR PO SCH (08:50)
[2022-03-16] MEDS: ESCITALOPRAM OXALATE 20 MG TAB PO SCH (08:50)
[2022-03-16] MEDS: METOPROLOL TARTRATE 25 MG TAB PO SCH ×3 (09:49→20:49)
[2022-03-16] MEDS: PREGABALIN 100 MG CAP PO SCH ×2 (09:56→20:48)
--- NOTE | 2022-03-16 10:36 | Hospitalist Progress Note ---
Date of Service March 16, 2022 Assessment & Plan (1) Shortness of breath: (2) Atrial fibrillation: (3) Hypertension: (4) Subtherapeutic international normalized ratio (INR): (5) Leg wound, left: (6) Neuropathy: (7) Major depression, chronic: Plan: Patient presented with shortness of breath at rest with palpitations for the past day. Also reported some diarrhea over the past few days. Patient has chronic leg edema which is unchanged as well as wounds in the legs. Chest x-ray on presentation reported cardiomegaly with bilateral reticular interstitial opacities. BNP is 92. However, patient is morbidly obese. DDimer is 840 Patient did report reducing her dose of Lasix recently. Acute on chronic diastolic heart failure However, patient has persistent Afib and INR is subtherapeutic. CT PE though limited due to respiratory motion artifact, did not show central PE EKG showed Afib with RVR Trop HS is borderline at 15pg/ml. Repeat was same Patient got IV Lasix in ER. Will continue lasix IV Last Echo in 02/2021 showed normal EF of 55%, severely dilated LA, moderately dilated RA, moderate MR and mild AR. Get TTE Patient takes warfarin 5 mg on Wednesdays and 2.5 mg other days. Last INR check on 03/10/2022 was supratherapeutic at 3.841 patient was advised to hold Coumadin on 03/11/2022 and resume regular dose which patient reported she did. In view of subtherapeutic INR, Was given higher dose of 5mg on admission Monitor INR. Still 1.4 today Patient has chronic leg edema and orthopnea which she reports has not worsened Continue to hold home lisinopril for now as BP is running low normal Continue metoprolol Await Cardiology evaluation Wean off oxygen For patient's leg wounds. 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 Wound care consult Continue home lyrica Continue escitalopram and bupropion Continue oxybutynin Admission and Anticipated Discharge Date Admission Date: March 15, 2022 Subjective Patient seen and examined Reports feeling better today Reports no shortness of breath at rest. No palpitations this morning Denies any chest pain, cough Denies nausea, vomiting, abdominal pain Reports pain in the legs at wound sites Physical Exam Constitutional: + well hydrated and + obese; no acute distress Eyes: PERRL, conjunctivae normal, anicteric sclerae ENMT: external ear and nose normal, oropharynx normal Respiratory: Not in respiratory distress, diminished breath sounds Cardiovascular: Rate/Rhythm: + irregularly irregular S1 S2 Gastrointestinal (Abdomen): normal bowel sounds, soft, nontender, no hepatosplenomegaly Musculoskeletal: Pedal edema multiple scab. Wound over right lateral leg. Left great toe missing. Wound at the site with dressing Neurologic: PERRL, EOMI, accommodation nl, no face palsy, no dysarthria Psychiatric: A+Ox3, euthymic affect Results & Data Results & Data ([facility]) Vital Signs (Past 12 Hours) Vital Signs Temp Pulse Pulse Resp BP BP Pulse Ox 03/16/22 08:57 105/67 03/16/22 07:46 36.8 C 97 H 20 103/67 98 03/16/22 06:14 88 03/16/22 02:49 36.8 C 87 16 96/62 L 96 03/16/22 00:00 110 H 03/15/22 23:04 36.8 C 92 H 20 98/66 L 97 Laboratory Results Abnormal lab results 03/15/22 03/15/22 03/15/22 Range/Units 11:49 11:49 11:49 RBC 3.57 L (4.2-5.4) M/uL Hgb 11.7 L (12.0-16.0) g/dL Hct 35.6 L (37-47) % MCV (80-100) fL RDW Std Deviation 55.3 H (36.4-46.3) fL RDW Coeff of [place] 15.2 H (11.5-14.5) % MPV 10.5 H (7.4-10.4) fL Neut # (Auto) 7.91 H (1.4-6.5) K/uL Lymph # (Auto) 0.64 L (1.2-3.4) K/uL [place] # (Auto) 0.66 H (0.11-0.59) K/uL Immature Gran # (Auto) 0.03 H (0.00-0.02) K/uL PT (9.0-12.0) Seconds INR (0.9-1.1) D-Dimer (0-500) ug/L FEU Chloride 108 H (98-107) mmol/L BUN 39 H (6-23) mg/dl BUN/Creatinine Ratio 53.4 H (10-20) Glucose 116 H (70-99(Fasting)) mg/dl Troponin I High Sens 15.1 H (0-14) pg/ml Urine Ketones (Negative) Urine Blood (Negative) U Epithel Cells (Auto) (0-5) /lpf 03/15/22 03/15/22 03/15/22 Range/Units 12:21 17:07 Unknown RBC (4.2-5.4) M/uL Hgb (12.0-16.0) g/dL Hct (37-47) % MCV (80-100) fL RDW Std Deviation (36.4-46.3) fL RDW Coeff of [place] (11.5-14.5) % MPV (7.4-10.4) fL Neut # (Auto) (1.4-6.5) K/uL Lymph # (Auto) (1.2-3.4) K/uL [place] # (Auto) (0.11-0.59) K/uL Immature Gran # (Auto) (0.00-0.02) K/uL PT 14.9 H (9.0-12.0) Seconds INR 1.4 H (0.9-1.1) D-Dimer 840 H* (0-500) ug/L FEU Chloride (98-107) mmol/L BUN (6-23) mg/dl BUN/Creatinine Ratio (10-20) Glucose (70-99(Fasting)) mg/dl Troponin I High Sens 15.1 H (0-14) pg/ml Urine Ketones Trace H (Negative) Urine Blood Trace H (Negative) U Epithel Cells (Auto) 5-10 H (0-5) /lpf 03/16/22 03/16/22 03/16/22 Range/Units 06:00 06:00 06:00 RBC 3.12 L (4.2-5.4) M/uL Hgb 10.2 L (12.0-16.0) g/dL Hct 31.7 L (37-47) % MCV 101.6 H (80-100) fL RDW Std Deviation 56.9 H (36.4-46.3) fL RDW Coeff of [place] 15.6 H (11.5-14.5) % MPV 10.7 H (7.4-10.4) fL Neut # (Auto) (1.4-6.5) K/uL Lymph # (Auto) (1.2-3.4) K/uL [place] # (Auto) (0.11-0.59) K/uL Immature Gran # (Auto) (0.00-0.02) K/uL PT 14.8 H (9.0-12.0) Seconds INR 1.4 H (0.9-1.1) D-Dimer (0-500) ug/L FEU Chloride 108 H (98-107) mmol/L BUN 37 H (6-23) mg/dl BUN/Creatinine Ratio 34.9 H (10-20) Glucose 100 H (70-99(Fasting)) mg/dl Troponin I High Sens (0-14) pg/ml Urine Ketones (Negative) Urine Blood (Negative) U Epithel Cells (Auto) (0-5) /lpf
[2022-03-16] MEDS ORDERED: METOPROLOL TARTRATE 25 MG TAB PO ONE (12:00)
[2022-03-16] MEDS: SPIRONOLACTONE 12.5 MG TAB PO SCH (12:47)
--- NOTE | 2022-03-16 14:07 | Electrocardiogram Report ---
Test Reason : Blood Pressure : / mmHG Vent. Rate : 121 BPM Atrial Rate : 117 BPM P-R Int : 000 ms QRS Dur : 068 ms QT Int : 336 ms P-R-T Axes : 000 -05 014 degrees QTc Int : 477 ms Poor data quality, interpretation may be adversely affected Atrial fibrillation with rapid ventricular response Abnormal ECG When compared with ECG of 18-MAY-2015 15:40, No significant change was found Confirmed by Lan Nguyen ([id number] on 03/16/2022 2:07:15 PM Referred By: REFERRED SELF Confirmed By:Tommy Nguyen
[2022-03-16] MEDS: WARFARIN SOD 5 MG TAB PO SCH (16:57)
[2022-03-16] MEDS: FUROSEMIDE INJ 20 MG/2 ML VIAL IV SCH (16:58)
[2022-03-16] MEDS ORDERED: PROMETHAZINE HCL 12.5 MG in SODIUM CHLORIDE 0.9% 50 ML IV PRN (16:58)
[2022-03-16] MEDS: MONTELUKAST SODIUM 10 MG TABLET PO SCH (20:48)
[2022-03-16] MEDS: ACETAMINOPHEN 500 MG TAB PO PRN (20:52)
[2022-03-16] MEDS: MICONAZOLE NITRATE POWDER 43 GM EXT PRN (21:00)
[2022-03-17 06:23] LABS: Hematocrit (blood only) 32.7 % (37-47); Hemoglobin 10.8 g/dL (12.0-16.0); Mean Corpuscular Hemoglobin 33.1 pg (25-34); Mean Corpuscular Volume 100.3 fL (80-100); Mean Platelet Volume 10.2 fL (7.4-10.4); Platelet Count 212 K/uL (130-400); RDW Coefficient of Variation 15.1 % (11.5-14.5); Red Blood Count 3.26 M/uL (4.2-5.4); White Blood Count 6.41 K/uL (4.8-10.8)
[2022-03-17 06:56] LABS: BUN Creatinine Ratio 29.8 (10-20); Calcium 8.9 mg/dl (8.5-10.1); Creatinine Clr Calc Pharmacy 64.6 ml/min; Est GFR (African American) 61.3 ml/min; Est GFR (Non-African American) 52.9 ml/min; Phosphorus 3.9 mg/dl (2.5-4.9); Potassium 3.7 mmol/L (3.5-5.1)
[2022-03-17 07:32] LABS: INR 1.7 (0.9-1.1); Prothrombin Time 17.8 Seconds (9.0-12.0)
--- NOTE | 2022-03-17 08:48 | Cardiology Progress Note ---
Date of Service March 17, 2022 Assessment & Plan (1) Acute on chronic diastolic HF (heart failure): (2) Pulmonary edema: (3) Atrial fibrillation with RVR: Plan: Patients respiratory status improved with several doses IV lasix. No longer requiring supplemental O2. Volume status improved. Heart rates improved with slight titration of metoprolol to 37.5 mg BID. Continue coumadin for anticoagulation. Transition from IV furosemide this morning to oral furosemide 40 mg in the morning and 20 mg in the afternoon (home dose) Continue low dose spironolactone 12.5 mg daily on discharge as well (new medication). Daily weight encouraged. low sodium diet encouraged. Follow up with wound clinic. Will arrange 2-4 week follow up at [place] with Sanket or Jose. Stable for discharge from cardiac perspective. Case discussed with Dr. Pelletier. Admission and Anticipated Discharge Date Admission Date: March 15, 2022 Supervising Physician Co-Signing Physician Notes I have seen and examined the patient. I have discussed the case with Brenda Sanket and reviewed the medical record. I agree with the plan as outlined above however, she has been running a fairly low blood pressure and you may want to consider holding her lisinopril until she is seen in follow-up. Subjective Patient feeling well today. SOB improved. Returned to baseline. No longer requiring supplemental O2. Denies chest pain. BP borderline low, but consistent with her history. no symptoms. No dizziness or lightheadedness. Review of Systems Review of Systems: All systems reviewed & are unremarkable except as noted in HPI & below Physical Exam Constitutional: WD/WN, vitals as above Eyes: PERRL, conjunctivae normal, anicteric sclerae Neck: trachea midline, no thyromegaly (thick neck) Respiratory: no respiratory distress Auscultation: + diminished lung sounds; no crackles and no rales Cardiovascular: Rate/Rhythm: + irregularly irregular Heart Sounds: no murmur Vessels: no JVD Extremities: + edema (trace b/l edema with chronic stasis changes. Right LE with erythema, ulcer) Gastrointestinal (Abdomen): normal bowel sounds, soft, nontender, no hepatosplenomegaly Neurologic: PERRL, EOMI, accommodation nl, no face palsy, no dysarthria Psychiatric: A+Ox3, euthymic affect Results & Data ([facility]) Vital Signs (Past 12 Hours) Vital Signs Temp Pulse Pulse Resp BP Pulse Ox 03/17/22 06:49 36.6 C 101 H 20 98/61 L 97 03/17/22 06:14 68 03/17/22 03:45 36.8 C 84 20 109/65 97 03/16/22 23:08 37.2 C 87 20 93/61 L 95 Laboratory Results 03/17/22 03/17/22 03/17/22 Range/Units 06:03 06:03 06:03 WBC 6.41 (4.8-10.8) K/uL RBC 3.26 L (4.2-5.4) M/uL Hgb 10.8 L (12.0-16.0) g/dL Hct 32.7 L (37-47) % MCV 100.3 H (80-100) fL MCH 33.1 (25-34) pg MCHC 33.0 (32-36) g/dL RDW Std Deviation 55.0 H (36.4-46.3) fL RDW Coeff of Shoshana 15.1 H (11.5-14.5) % Plt Count 212 (130-400) K/uL MPV 10.2 (7.4-10.4) fL PT 17.8 H (9.0-12.0) Seconds INR 1.7 H (0.9-1.1) Sodium 138 (136-145) mmol/L Potassium 3.7 (3.5-5.1) mmol/L Chloride 102 (98-107) mmol/L Carbon Dioxide 32 (21-32) mmol/L Anion Gap 4 (3-11) BUN 31 H (6-23) mg/dl Creatinine 1.04 (0.6-1.2) mg/dl Est Cr Clr Drug Dosing 64.6 ml/min Est GFR ( Amer) 61.3 ml/min Est GFR (Non-Af Amer) 52.9 ml/min BUN/Creatinine Ratio 29.8 H (10-20) Glucose 113 H (70-99(Fasting)) mg/dl Calcium 8.9 (8.5-10.1) mg/dl Phosphorus 3.9 (2.5-4.9) mg/dl Magnesium 2.0 (1.7-2.4) mg/dl Diagnostic Findings Telemetry reviewed: Chronic afib, rates improved and ranging 70-90 bpm Echo report reviewed dated 03/16/22: LV is normal in size. LV systolic function is normal. EF 55-60% LA is severely dilated RA not well visualized Mild MR. Medications Administered Current Inpatient Medications Acetaminophen (Acetaminophen 500 Mg Tab) 1,000 mg PO BID PRN PRN Reason: Pain Stop: 04/14/22 16:21 Last Admin: 03/16/22 20:52 Dose: 1,000 mg Documented by: Bupropion HCl (Bupropion Xl 300 Mg Tabcr) 300 mg PO DAILY [facility] Stop: 04/15/22 08:59 Last Admin: 03/16/22 08:50 Dose: 300 mg Documented by: Escitalopram Oxalate (Escitalopram Oxalate 20 Mg Tab) 20 mg PO DAILY [facility] Stop: 04/15/22 08:59 Last Admin: 03/16/22 08:50 Dose: 20 mg Documented by: Furosemide (Furosemide 40 Mg/4 Ml Vial) 40 mg IV QAM [facility] EN[facility]QUE Stop: 04/15/22 08:59 Last Admin: 03/16/22 08:50 Dose: 40 mg Documented by: Furosemide (Furosemide Inj 20 Mg/2 Ml Vial) 20 mg IV DAILY@1700 [facility] Stop: 04/15/22 16:59 Last Admin: 03/16/22 16:58 Dose: 20 mg Documented by: Promethazine HCl 12.5 mg/ (Sodium Chloride) 50.5 mls @ 202 mls/hr IV Q6H PRN PRN Reason: Nausea And Vomiting Stop: 04/15/22 16:57 Last Infusion: 03/16/22 19:00 Dose: Infused Documented by: Metoprolol Tartrate (Metoprolol Tartrate 25 Mg Tab) 37.5 mg PO BID [facility] ENRIQUE Stop: 04/15/22 20:59 Last Admin: 03/16/22 20:49 Dose: 37.5 mg Documented by: Miconazole Nitrate (Miconazole Nitrate Powder 43 Gm) 1 appln EXT PRN PRN PRN Reason: Affected Skin Folds Stop: 04/15/22 18:29 Last Admin: 03/16/22 21:00 Dose: 1 appln Documented by: Montelukast Sodium (Montelukast Sodium 10 Mg Tablet) 10 mg PO QPM [facility] ENRIQUE Stop: 04/14/22 20:59 Last Admin: 04/18/22 20:48 Dose: 10 mg Documented by: Multivitamins (Multivitamin Tab) 1 tab PO DAILY [facility] Stop: 04/15/22 08:59 Last Admin: 03/16/22 08:50 Dose: 1 tab Documented by: Oxybutynin Chloride (Oxybutynin Chloride Xl 5 Mg Tabcr) 15 mg PO DAILY [facility] Stop: 04/15/22 08:59 Last Admin: 03/16/22 08:49 Dose: 15 mg Documented by: Pregabalin (Pregabalin 100 Mg Cap) 100 mg PO BID [facility] Stop: 04/14/22 20:59 Last Admin: 03/16/22 20:48 Dose: 100 mg Documented by: Spironolactone (Spironolactone 12.5 Mg Tab) 12.5 mg PO DAILY [facility] Stop: 04/15/22 11:59 Last Admin: 03/16/22 12:47 Dose: 12.5 mg Documented by: Warfarin Sodium (Warfarin Sod 2.5 Mg Tab) 2.5 mg PO SuTuThFrSa@1600 [facility] Stop: 04/16/22 15:59 Warfarin Sodium (Warfarin Sod 5 Mg Tab) 5 mg PO MoWe@1600 [facility] Stop: 04/15/22 15:59 Last Admin: 03/16/22 16:57 Dose: 5 mg Documented by:
[2022-03-17] MEDS: FUROSEMIDE 40 MG/4 ML VIAL IV SCH ×2 (09:28→09:35)
[2022-03-17] MEDS: buPROPion XL 300 MG TABCR PO SCH (09:29)
[2022-03-17] MEDS: ESCITALOPRAM OXALATE 20 MG TAB PO SCH (09:29)
[2022-03-17] MEDS: MULTIVITAMIN TAB PO SCH (09:29)
[2022-03-17] MEDS: OXYBUTYNIN CHLORIDE XL 5 MG TABCR PO SCH (09:29)
[2022-03-17] MEDS: SPIRONOLACTONE 12.5 MG TAB PO SCH (09:30)
[2022-03-17] MEDS: METOPROLOL TARTRATE 25 MG TAB PO SCH ×2 (09:34→20:58)
[2022-03-17] MEDS: PREGABALIN 100 MG CAP PO SCH ×2 (09:39→21:01)
[2022-03-17] MEDS: FUROSEMIDE 40 MG TAB PO SCH (11:27)
--- NOTE | 2022-03-17 11:56 | Hospitalist Progress Note ---
Date of Service March 17, 2022 Assessment & Plan (1) Shortness of breath: (2) Atrial fibrillation: (3) Hypertension: (4) Subtherapeutic international normalized ratio (INR): (5) Leg wound, left: (6) Neuropathy: (7) Major depression, chronic: (8) Acute on chronic diastolic HF (heart failure): Plan: Patient presented with shortness of breath at rest with palpitations for the past day. Also reported some diarrhea over the past few days. Patient has chronic leg edema which is unchanged as well as wounds in the legs. Chest x-ray on presentation reported cardiomegaly with bilateral reticular interstitial opacities. BNP is 92. However, patient is morbidly obese. DDimer is 840 Patient did report reducing her dose of Lasix recently. However, patient has persistent Afib and INR is subtherapeutic. CT PE though limited due to respiratory motion artifact, did not show central PE EKG showed Afib with RVR Trop HS is borderline at 15pg/ml. Repeat was same Last Echo in 02/2021 showed normal EF of 55%, severely dilated LA, moderately dilated RA, moderate MR and mild AR. Echo report noted. Similar to previous Was started on IV lasix Transition to home po lasix dose today Spironolactone added by Cardiology Home metoprolol increased to 37.5mg bid Patient takes warfarin 5 mg on Wednesdays and 2.5 mg other days. Last INR check on 03/10/2022 was supratherapeutic at 3.841 patient was advised to hold Coumadin on 03/11/2022 and resume regular dose which patient reported she did. INR on admission was 1.4 In view of subtherapeutic INR, Was given higher dose of 5mg on admission INR improving 1.7 today. Continue home dose BP running low to low normal Continue to hold lisinopril. Plan to discontine on discharge for now For patient's leg wounds. 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 Wound care consult Continue home lyrica Continue escitalopram and bupropion Continue oxybutynin Requires more housing assistant than typical Awaiting PT/OT eval to determine disposition - home vs SNF/rehab Admission and Anticipated Discharge Date Admission Date: March 15, 2022 Subjective 76-year-old woman with history of hypertension, chronic atrial fibrillation on warfarin, obesity,Reported history of melanoma on chemo who presented with shortness of breath started a day prior to presentation Being managed for acute on chronic diastolic heart failure, atrial fibrillation with rapid ventricular rate. Patient seen and examined today. Reports no shortness of breath at rest. Denies palpitations Denies any chest pain, cough Denies nausea, vomiting, abdominal pain Reports some pain in the legs at wound sites Physical Exam Constitutional: + well hydrated and + obese; no acute distress Eyes: PERRL, conjunctivae normal, anicteric sclerae ENMT: external ear and nose normal, oropharynx normal Respiratory: normal respiratory effort; no respiratory distress Diminished breath sounds Cardiovascular: Rate/Rhythm: + irregularly irregular S1 S2 Gastrointestinal (Abdomen): normal bowel sounds, soft, nontender, no hepatosplenomegaly Musculoskeletal: Pedal edema Multiple scabs. Wound over right lateral leg. Left great toe missing. Wound at the site with dressing Neurologic: PERRL, EOMI, accommodation nl, no face palsy, no dysarthria Psychiatric: A+Ox3, euthymic affect Results & Data Results & Data ([facility]) Vital Signs (Past 12 Hours) Vital Signs Temp Pulse Pulse Resp BP Pulse Ox 03/17/22 11:40 37.0 C 75 20 95/62 L 93 03/17/22 09:30 86 99/63 L 03/17/22 06:49 36.6 C 101 H 20 98/61 L 97 03/17/22 06:14 68 03/17/22 03:45 36.8 C 84 20 109/65 97 Laboratory Results Abnormal lab results 03/17/22 03/17/22 03/17/22 Range/Units 06:03 06:03 06:03 RBC 3.26 L (4.2-5.4) M/uL Hgb 10.8 L (12.0-16.0) g/dL Hct 32.7 L (37-47) % MCV 100.3 H (80-100) fL RDW Std Deviation 55.0 H (36.4-46.3) fL RDW Coeff of Shoshana 15.1 H (11.5-14.5) % PT 17.8 H (9.0-12.0) Seconds INR 1.7 H (0.9-1.1) BUN 31 H (6-23) mg/dl BUN/Creatinine Ratio 29.8 H (10-20) Glucose 113 H (70-99(Fasting)) mg/dl
[2022-03-17] MEDS: FUROSEMIDE INJ 20 MG/2 ML VIAL IV SCH (13:25)
[2022-03-17] MEDS ORDERED: WARFARIN SOD 2.5 MG TAB PO SCH (16:00)
[2022-03-17] MEDS: FUROSEMIDE 20 MG TAB PO SCH (16:38)
[2022-03-17] MEDS: MICONAZOLE NITRATE POWDER 43 GM EXT PRN (17:44)
[2022-03-17] MEDS: MONTELUKAST SODIUM 10 MG TABLET PO SCH (20:57)
[2022-03-18] MEDS: ACETAMINOPHEN 500 MG TAB PO PRN (04:11)
[2022-03-18 07:12] LABS: INR 1.7 (0.9-1.1); Prothrombin Time 17.3 Seconds (9.0-12.0)
[2022-03-18 07:33] LABS: BUN Creatinine Ratio 26.1 (10-20); Creatinine Clr Calc Pharmacy 77.3 ml/min; Est GFR (Non-African American) 64.7 ml/min; Potassium 3.6 mmol/L (3.5-5.1)
[2022-03-18] MEDS: buPROPion XL 300 MG TABCR PO SCH (08:57)
[2022-03-18] MEDS: FUROSEMIDE 40 MG TAB PO SCH (08:57)
[2022-03-18] MEDS: ESCITALOPRAM OXALATE 20 MG TAB PO SCH (08:57)
[2022-03-18] MEDS: METOPROLOL TARTRATE 25 MG TAB PO SCH ×2 (08:58→20:27)
[2022-03-18] MEDS: MULTIVITAMIN TAB PO SCH (08:58)
[2022-03-18] MEDS: OXYBUTYNIN CHLORIDE XL 5 MG TABCR PO SCH (08:59)
[2022-03-18] MEDS: SPIRONOLACTONE 12.5 MG TAB PO SCH (08:59)
[2022-03-18] MEDS: PREGABALIN 100 MG CAP PO SCH ×2 (09:04→20:28)
[2022-03-18] MEDS: DOXYCYCLINE HYCLATE 100 MG CAP PO SCH ×2 (13:51→20:28)
--- NOTE | 2022-03-18 15:44 | Hospitalist Progress Note ---
Date of Service March 18, 2022 Assessment & Plan (1) Shortness of breath: (2) Atrial fibrillation: (3) Hypertension: (4) Subtherapeutic international normalized ratio (INR): (5) Leg wound, left: (6) Neuropathy: (7) Major depression, chronic: (8) Acute on chronic diastolic HF (heart failure): Plan: Acute on chronic diastolic heart Failure Pulmonary Edema Volume status improved with IV Lasix Currently saturating well on room air Continue p.o. Lasix 40 mg a.m., 20 mg afternoon Appreciate cardiology input Monitor volume status Also started on Aldactone Needs follow-up with cardiology in 2 to 4 weeks upon discharge Afib RVR Continue metoprolol increased to 37.5 mg BID Continue Coumadin Monitor INR 1.7 Chronic Leg Wounds H/O melanoma as per patient Empirically started on doxycycline Continue wound care Relatively low Blood Pressure Continue to hold lisinopril Plan to discontinue on discharge for now Chronic Pain Depression Continue Lyrica Continue escitalopram and bupropion DVT Px: Coumadin Code Status Full Code Disposition Need SNF placement Admission and Anticipated Discharge Date Admission Date: March 15, 2022 Subjective Patient is seen and examined at bedside Offers no complaints today Denies any chest pain, shortness of breath, dizziness, nausea, abdominal pain Waiting for rehab placement Review of Systems Review of Systems: All systems reviewed & are unremarkable except as noted in Subjective Physical Exam Physical Exam: Physical Exam: Vitals signs as noted above General Appearance:Morbidly Obese, No apparent distress Head: normocephalic, Atraumatic Eyes: normal inspection, EOMI Neck: supple, Trachea midline Respiratory/Chest: Normal breath sounds, CTA, No accessory muscle use Cardiovascular: S1, S2, No murmur Abdomen/GI:Soft, Non tender, Bowel sounds present Extremities/Musculoskeletal:normal inspection, B/L LE edema, +Leg wounds Neurologic/Psych:AAOX3, grossly no focal neurological deficits Skin: normal color, warm Results & Data Results & Data ([facility]) Vital Signs (Past 12 Hours) Vital Signs Temp Pulse Pulse Resp BP Pulse Ox 03/18/22 15:27 80 03/18/22 14:54 36.8 C 99 H 18 100/66 92 03/18/22 11:13 36.8 C 69 18 103/64 93 03/18/22 06:38 37.4 C 106 H 20 106/70 92 03/18/22 04:00 37.1 C 104 H 20 99/66 L 92 Laboratory Results [facility] 03/18/22 06:30 Sodium 135 L Potassium 3.6 Chloride 100 Carbon Dioxide 30 BUN 23 Creatinine 0.88 Glucose 124 H Calcium 9.0
[2022-03-18] MEDS: WARFARIN SOD 5 MG TAB PO SCH (16:32)
[2022-03-18] MEDS: FUROSEMIDE 20 MG TAB PO SCH (16:33)
[2022-03-18] MEDS: MONTELUKAST SODIUM 10 MG TABLET PO SCH (20:28)
[2022-03-19] MEDS: ACETAMINOPHEN 500 MG TAB PO PRN ×2 (01:53→10:03)
[2022-03-19 06:35] LABS: INR 1.7 (0.9-1.1); Prothrombin Time 17.5 Seconds (9.0-12.0)
[2022-03-19 06:44] LABS: BUN Creatinine Ratio 22.4 (10-20); Calcium 9.1 mg/dl (8.5-10.1); Creatinine Clr Calc Pharmacy 80.1 ml/min; Est GFR (African American) 78.2 ml/min; Est GFR (Non-African American) 67.5 ml/min; Potassium 3.2 mmol/L (3.5-5.1)
[2022-03-19] MEDS: DOXYCYCLINE HYCLATE 100 MG CAP PO SCH (07:57)
[2022-03-19] MEDS: buPROPion XL 300 MG TABCR PO SCH (07:57)
[2022-03-19] MEDS: ESCITALOPRAM OXALATE 20 MG TAB PO SCH (07:59)
[2022-03-19] MEDS: FUROSEMIDE 40 MG TAB PO SCH (07:59)
[2022-03-19] MEDS: METOPROLOL TARTRATE 25 MG TAB PO SCH (08:00)
[2022-03-19] MEDS: MULTIVITAMIN TAB PO SCH (08:00)
[2022-03-19] MEDS: OXYBUTYNIN CHLORIDE XL 5 MG TABCR PO SCH (08:01)
[2022-03-19] MEDS: SPIRONOLACTONE 12.5 MG TAB PO SCH (08:01)
[2022-03-19] MEDS: PREGABALIN 100 MG CAP PO SCH (08:01)
[2022-03-19] MEDS ORDERED: POTASSIUM CHLORIDE CRTAB 20 MEQ TABCR PO ONE ×2 (09:05→09:07)
[2022-03-19] MEDS ORDERED: POLYETHYLENE (MIRALAX) 17 GM PACK PO PRN (10:09)
[2022-03-19] MEDS ORDERED: DOCUSATE SODIUM 100 MG CAP PO SCH (10:15)
--- NOTE | 2022-03-19 11:29 | Cardiology Progress Note ---
Date of Service March 19, 2022 Assessment & Plan (1) Acute on chronic diastolic HF (heart failure): (2) Pulmonary edema: (3) Atrial fibrillation with RVR: Plan: Patients respiratory status improved with several doses IV lasix since admission. No longer requiring supplemental O2. Volume status improved. Continue furosemide 40 mg in the morning and 20 mg in the afternoon. Continue spironolactone 12.5 mg daily. Hesitant to increase dose due to borderline low BP. Supplement potassium this morning. Heart rates improved. Continue higher dose metoprolol 37.5 mg BID on discharge Daily weight encouraged. low sodium diet encouraged. Follow up with wound clinic. Awaiting placement for rehab. Will arrange 2-4 week follow up at [place] with Sanket or Jose. Stable for discharge from cardiac perspective. Case discussed with Dr. Pelletier. Admission and Anticipated Discharge Date Admission Date: March 15, 2022 Supervising Physician Co-Signing Physician Notes I have discussed the case with Ms. Coles. I previously seen and evaluated the patient and reviewed the medical record. I agree the patient can be discharged per the medicine service and we will arrange follow-up as an outpatient. Subjective Patient resting in bed comfortably. Denies chest pain, SOB. Reports breathing at baseline. She is awaiting placement for rehab. Voices no complaints. Potassium was low this morning and supplemented. Edema improving. Review of Systems Review of Systems: All systems reviewed & are unremarkable except as noted in HPI & below Physical Exam Constitutional: WD/WN, vitals as above Eyes: PERRL, conjunctivae normal, anicteric sclerae Neck: trachea midline, no thyromegaly (thick neck) Respiratory: no respiratory distress Auscultation: + diminished lung sounds; no crackles and no rales Cardiovascular: Rate/Rhythm: + irregularly irregular Heart Sounds: no murmur Vessels: no JVD Extremities: + edema (trace b/l edema with chronic stasis changes. Right LE with erythema, ulcer) Gastrointestinal (Abdomen): normal bowel sounds, soft, nontender, no hepatosplenomegaly Neurologic: PERRL, EOMI, accommodation nl, no face palsy, no dysarthria Psychiatric: A+Ox3, euthymic affect Results & Data ([facility]) Vital Signs (Past 12 Hours) Vital Signs Temp Pulse Pulse Resp BP Pulse Ox 03/19/22 11:04 36.6 C 87 18 98/56 L 91 03/19/22 06:40 36.5 C 84 20 122/75 03/19/22 06:14 50 L 03/19/22 03:05 37.4 C 94 H 18 105/62 92 Laboratory Results 03/19/22 03/19/22 Range/Units 05:33 05:33 PT 17.5 H (9.0-12.0) Seconds INR 1.7 H (0.9-1.1) Sodium 134 L (136-145) mmol/L Potassium 3.2 L (3.5-5.1) mmol/L Chloride 99 (98-107) mmol/L Carbon Dioxide 26 (21-32) mmol/L Anion Gap 9 (3-11) BUN 19 (6-23) mg/dl Creatinine 0.85 (0.6-1.2) mg/dl Est Cr Clr Drug Dosing 80.1 ml/min Est GFR ( Amer) 78.2 ml/min Est GFR (Non-Af Amer) 67.5 ml/min BUN/Creatinine Ratio 22.4 H (10-20) Glucose 115 H (70-99(Fasting)) mg/dl Calcium 9.1 (8.5-10.1) mg/dl Diagnostic Findings Telemetry reviewed: atrial fibrillation with controlled rates 60-80's. Medications Administered Current Inpatient Medications Acetaminophen (Acetaminophen 500 Mg Tab) 1,000 mg PO BID PRN PRN Reason: Pain Stop: 04/14/22 16:21 Last Admin: 03/19/22 10:03 Dose: 1,000 mg Documented by: Bupropion HCl (Bupropion Xl 300 Mg Tabcr) 300 mg PO DAILY [facility] Stop: 04/15/22 08:59 Last Admin: 03/19/22 07:57 Dose: 300 mg Documented by: Docusate Sodium (Docusate Sodium 100 Mg Cap) 100 mg PO BID [facility] Stop: 04/18/22 10:14 Last Admin: 03/19/22 10:53 Dose: 100 mg Documented by: Doxycycline Hyclate (Doxycycline Hyclate 100 Mg Cap) 100 mg PO BID [facility] Stop: 03/25/22 12:59 Last Admin: 03/19/22 07:57 Dose: 100 mg Documented by: Escitalopram Oxalate (Escitalopram Oxalate 20 Mg Tab) 20 mg PO DAILY [facility] Stop: 04/15/22 08:59 Last Admin: 03/19/22 07:59 Dose: 20 mg Documented by: Furosemide (Furosemide 40 Mg Tab) 40 mg PO QAM [facility] Stop: 04/16/22 09:59 Last Admin: 03/19/22 07:59 Dose: 40 mg Documented by: Furosemide (Furosemide 20 Mg Tab) 20 mg PO DAILY@1700 [facility] Stop: 04/16/22 16:59 Last Admin: 03/18/22 16:33 Dose: 20 mg Documented by: Promethazine HCl 12.5 mg/ (Sodium Chloride) 50.5 mls @ 202 mls/hr IV Q6H PRN PRN Reason: Nausea And Vomiting Stop: 04/15/22 16:57 Last Infusion: 03/16/22 19:00 Dose: Infused Documented by: Metoprolol Tartrate (Metoprolol Tartrate 25 Mg Tab) 37.5 mg PO BID [facility] ENRIQUE Stop: 04/15/22 20:59 Last Admin: 03/19/22 08:00 Dose: 37.5 mg Documented by: Miconazole Nitrate (Miconazole Nitrate Powder 43 Gm) 1 appln EXT PRN PRN PRN Reason: Affected Skin Folds Stop: 04/15/22 18:29 Last Admin: 03/17/22 17:44 Dose: 1 appln Documented by: Montelukast Sodium (Montelukast Sodium 10 Mg Tablet) 10 mg PO QPM [facility] Stop: 04/14/22 20:59 Last Admin: 03/18/22 20:28 Dose: 10 mg Documented by: Multivitamins (Multivitamin Tab) 1 tab PO DAILY [facility] Stop: 04/15/22 08:59 Last Admin: 03/19/22 08:00 Dose: 1 tab Documented by: Oxybutynin Chloride (Oxybutynin Chloride Xl 5 Mg Tabcr) 15 mg PO DAILY [facility] Stop: 04/15/22 08:59 Last Admin: 03/19/22 08:01 Dose: 15 mg Documented by: Polyethylene Glycol (Polyethylene (Miralax) 17 Gm Pack) 17 gm PO DAILY PRN PRN Reason: Constipation Stop: 04/18/22 10:08 Last Admin: 03/19/22 10:53 Dose: 17 gm Documented by: Pregabalin (Pregabalin 100 Mg Cap) 100 mg PO BID [facility] Stop: 04/14/22 20:59 Last Admin: 03/19/22 08:01 Dose: 100 mg Documented by: Spironolactone (Spironolactone 12.5 Mg Tab) 12.5 mg PO DAILY [facility] Stop: 04/15/22 11:59 Last Admin: 03/19/22 08:01 Dose: 12.5 mg Documented by: Warfarin Sodium (Warfarin Sod 2.5 Mg Tab) 2.5 mg PO SuTuThFrSa@1600 [facility] Stop: 04/16/22 15:59 Last Admin: 03/17/22 15:46 Dose: 2.5 mg Documented by: Warfarin Sodium (Warfarin Sod 5 Mg Tab) 5 mg PO MoWe@1600 [facility] Stop: 04/15/22 15:59 Last Admin: 03/18/22 16:32 Dose: 5 mg Documented by: Warfarin Sodium (Warfarin Sod 5 Mg Tab) 5 mg PO DAILY@1600 [facility] Stop: 04/18/22 15:59
--- NOTE | 2022-03-19 13:39 | Hospitalist Progress Note ---
Date of Service March 19, 2022 Assessment & Plan (1) Shortness of breath: (2) Atrial fibrillation: (3) Hypertension: (4) Subtherapeutic international normalized ratio (INR): (5) Leg wound, left: (6) Neuropathy: (7) Major depression, chronic: (8) Acute on chronic diastolic HF (heart failure): Plan: Acute on chronic diastolic heart Failure Pulmonary Edema Volume status improved with IV Lasix Currently saturating well on room air Continue p.o. Lasix 40 mg a.m., 20 mg afternoon Appreciate cardiology input Monitor volume status Also started on Aldactone Needs follow-up with cardiology in 2 to 4 weeks upon discharge Afib RVR Continue metoprolol increased to 37.5 mg BID Continue Coumadin Monitor INR 1.7 Plan to give 5 mg Coumadin today Chronic Leg Wounds IV site wound H/O melanoma as per patient Empirically started on doxycycline Continue wound care Advised to follow up with wound Clinic upon discharge Relatively low Blood Pressure Continue to hold lisinopril Plan to discontinue on discharge for now Chronic Pain Depression Continue Lyrica Continue escitalopram and bupropion DVT Px: Coumadin Code Status Full Code Disposition SNF placement Admission and Anticipated Discharge Date Admission Date: March 15, 2022 Subjective Patient is seen and examined at bedside States having small wound at IV site on UE No other complaints Denies any chest pain, shortness of breath, dizziness, nausea, abdominal pain Plan to discharge to Rehab facility today Review of Systems Review of Systems: All systems reviewed & are unremarkable except as noted in Subjective Physical Exam Physical Exam: Physical Exam: Vitals signs as noted above General Appearance:Morbidly Obese, No apparent distress Head: normocephalic, Atraumatic Eyes: normal inspection, EOMI Neck: supple, Trachea midline Respiratory/Chest: Normal breath sounds, CTA, No accessory muscle use Cardiovascular: S1, S2, No murmur Abdomen/GI:Soft, Non tender, Bowel sounds present Extremities/Musculoskeletal:normal inspection, B/L LE edema, +Leg wounds Neurologic/Psych:AAOX3, grossly no focal neurological deficits Skin: normal color, warm Results & Data Results & Data ([facility]) Vital Signs (Past 12 Hours) Vital Signs Temp Pulse Pulse Resp BP Pulse Ox 03/19/22 11:42 36.6 C 87 18 98/56 L 91 03/19/22 11:04 36.6 C 87 18 98/56 L 91 04/21/22 06:40 36.5 C 84 20 122/75 03/19/22 06:14 50 L 03/19/22 03:05 37.4 C 94 H 18 105/62 92 Laboratory Results [facility] 03/19/22 05:33 Sodium 134 L Potassium 3.2 L Chloride 99 Carbon Dioxide 26 BUN 19 Creatinine 0.85 Glucose 115 H Calcium 9.1
--- NOTE | 2022-03-19 13:55 | Discharge Summary ---
Date of Service March 19, 2022 Admission HPI Per Admitting Provider 76-year-old woman with history of hypertension, chronic atrial fibrillation on warfarin, obesity,Reported history of melanoma on chemo who presented with shortness of breath started a day ago. Patient reported that she started having shortness of breath yesterday was occurring at rest. This was also associated with palpitations. She denied any cough, sore throat, congestion. She reports chronic orthopnea as she sleeps in a recliner. Patient reported that for the past 3 to 4 days she has been having loose stool which started after she ate some food. Denies any abdominal pain, fevers, chills, nausea, vomiting. Had only 1 bowel movement prior to presentation today. Denied any dysuria, frequency, urgency, hematuria. Patient has incontinence which she is on oxybutynin. Has chronic wounds in the legs and leg swelling. Patient reported that she cut down her Lasix 2 days ago to 40 mg daily only due to diarrhea Per ER physician, patient was noted to be hypoxic by EMS in the 80s and had to be put on 5 L of oxygen. Patient is not usually on oxygen at home. FSH Mother/Father - Hypertesnion Father - cancer Denied smoking, alcohol illicit drug use Lives alone and followed by [facility] at home Admission Exam Per Admitting Provider Physical Exam Constitutional: + well hydrated and + obese; no acute di stress Eyes: PERRL, conjunctivae normal, anicteric sclerae ENMT: external ear and nose normal, oropharynx normal Respiratory: Normal breathing. Not in respiratory distress. Diminished breath sounds posteriorly (limited due to body habitus) Cardiovascular: Rate/Rhythm: + irregularly irregular HR 98-110s during evaluation Gastrointestinal (Abdomen): normal bowel sounds, soft, nontender, no hepatosplenomegaly Musculoskeletal: Pedal edema multiple scab. Wound over right lateral leg. Left great toe missing. Wound at the site with dressing Neurologic: PERRL, EOMI, accommodation nl, no face palsy, no dysarthria Psychiatric: A+Ox3, euthymic affect Principal Diagnosis Acute on chronic diastolic heart Failure Afib RVR Chronic Leg Wounds Discharge Data Allergies Allergy/AdvReac Type Severity Reaction Status Date / Time Penicillins Allergy Intermediate HIVES Verified 03/15/22 14:28 Sulfa (Sulfonamide Allergy Unknown ` Verified 03/15/22 14:28 Antibiotics) aspirin AdvReac Severe BLEEDING Verified 03/15/22 14:28 [facility] Consultations 03/15/22 13:33 ED Decision to Admit Stat 03/15/22 16:22 Consult Cardiology Routine Ordered Studies 03/15/22 14:09 CT angio chest PE protocol Stat Hospital Course (1) Shortness of breath: (2) Atrial fibrillation: (3) Hypertension: (4) Subtherapeutic international normalized ratio (INR): (5) Leg wound, left: (6) Neuropathy: (7) Major depression, chronic: (8) Acute on chronic diastolic HF (heart failure): Acute on chronic diastolic heart Failure Pulmonary Edema Volume status improved with IV Lasix Currently saturating well on room air Continue p.o. Lasix 40 mg a.m., 20 mg afternoon Appreciate cardiology input Monitor volume status Also started on Aldactone Needs follow-up with cardiology in 2 to 4 weeks upon discharge Afib RVR Continue metoprolol increased to 37.5 mg BID Continue Coumadin Monitor INR 1.7 Plan to give 5 mg Coumadin today Chronic Leg Wounds IV site wound H/O melanoma as per patient Empirically started on doxycycline Continue wound care Advised to follow up with wound Clinic upon discharge Relatively low Blood Pressure Continue to hold lisinopril Plan to discontinue on discharge for now Chronic Pain Depression Continue Lyrica Continue escitalopram and bupropion DVT Px: Coumadin Code Status Full Code Disposition SNF placement Total Time Total Time Spent Total Time Spent (In Minutes): 45 minutes Discharge Plan Discharge Items Patient Disposition[facility] Reason For Visit: SHORTNESS OF BREATH Discharge Diagnosis: Acute on chronic diastolic heart Failure Afib RVR Chronic Leg Wounds Activity: Per Instructions section Exercise/Sports: Gradually increase as tolerated Non-emergency contact: Primary Care Provider and Primary School Teacher Librarian Call non-emergency contact if: you have any medication questions, your symptoms worsen, your pain is concerning for you, you have a fever, your wound has increased redness, your wound has increased drainage and your wound pain has increased Follow-up/Referrals: Brigette Moser DO [Primary Care Provider] - (Date & Time 03/24/2022 2:20 PM Provider Brigette Moser DO Department [facility] ) Diet: Heart Healthy Add Attending Provider Instructions: Follow-up with your primary care physician Dr. Brigette Moser in 1 week upon discharge from rehab facility Follow-up with your director of institutional sales Dr. Pelletier in 2 to 4 weeks as instructed Follow-up with wound clinic for management of your leg wounds --Your final blood cultures are pending at the time of discharge. Follow-up with your physician for results. --Continue doxycycline 100 mg twice a day as prescribed -- Monitor your PT/INR and adjust Coumadin as needed while at rehab facility. Here INR is 1.7 today (03/19/2022) Take 5 mg Coumadin today Target INR is between 2.0-3.0. Seek immediate medical attention if your symptoms reoccur or worsen Please take all medications as instructed on discharge list below. Please call if you have any questions or problems. You can reach a [facility] hospitalist on duty at [facility] 24 hours a day by calling [phone] Pending Studies at Discharge: Yes Studies:: Blood Cultures Stand-Alone Forms: My [facility] Skilled Items Patient informed of condition?: Yes DNR: Yes Discharge Level of Care: Skilled Communicable Disease: No Discharge Prognosis: Stable Lines: None Urinary Catheter: No Medications and DC Order Prescriptions: New Docusate Sodium [Colace] 100 mg PO BID PRN (Reason: Constipation) Qty: 60 RF: 0 Doxycycline Hyclate [Vibramycin] 100 mg PO BID Qty: 20 RF: 0 Polyethylene Powder Packet [Miralax Powder Packet] 17 g PO DAILY PRN (Reason: constipation) Qty: 30 RF: 0 Spironolactone [Aldactone] 12.5 mg PO DAILY Qty: 30 RF: 0 potassium chloride 20 mEq tablet extended release 20 meq PO DAILY Qty: 3 RF: 0 Continued furosemide 40 mg tablet See Rx Instructions .ROUTE .COMPLEX RF: 0 oxybutynin chloride 15 mg tablet extended release 24 hr 15 mg PO DAILY RF: 0 montelukast 10 mg tablet 10 mg PO QPM RF: 0 escitalopram oxalate 20 mg tablet 20 mg PO DAILY RF: 0 bupropion HCl 300 mg tablet extended release 24 hr 300 mg PO DAILY RF: 0 pregabalin 100 mg capsule 100 mg PO BID RF: 0 multivitamin Tablet 1 tab PO DAILY RF: 0 acetaminophen 500 mg Tablet 1,000 mg PO BID PRN (Reason: Pain) RF: 0 warfarin [Coumadin] 5 mg Tablet 5 mg PO 2XWK RF: 0 warfarin [Coumadin] 2.5 mg Tablet 2.5 mg PO 5XWK RF: 0 Changed metoprolol tartrate 25 mg tablet 37.5 mg PO BID Qty: 90 RF: 0 Discontinued lisinopril 20 mg tablet 20 mg PO DAILY RF: 0 Discharge Orders: Discharge Order (Routine); Ordered 03/19/22 Ordered By: Aleks Garcia Admission Data Admit Date/Time: 03/15/22 14:26 Attending Provider: Aleks Garcia Admit Provider: Ronda Devries I. Primary Care Provider: Brigette Moser Other Providers: Kevin Snyder ; Sunny Frederick ; [place],[facility] Other Interventions: Discharge Summary Assessment (RN) Last Done: 03/19/22 11:42
[2022-03-19] MEDS ORDERED: WARFARIN SOD 5 MG TAB PO SCH (16:00)
== END 2022-03-19 14:43 | DRG 291 ==
LOC: ED 11:32 → SUATTDRO 14:26 → 2N 14:26

== ENCOUNTER 2022-06-28 13:12 | Inpatient (IN) ==
[2022-06-28] MEDS ORDERED: ACETAMINOPHEN 1,000 MG/100 ML VIAL IV STA (13:37)
[2022-06-28 14:34] LABS: Basophils # (auto) 0.02 K/uL (0-0.2); Basophils % (auto) 0.2 %; Eosinophils # (auto) 0.02 K/uL (0-0.50); Eosinophils % (auto) 0.2 %; Hemoglobin 10.3 g/dl (12.0-16.0); Immature Granulocytes # (auto) 0.05 K/uL (0.00-0.02); Immature Granulocytes % (auto) 0.5 %; Lymphocytes % (auto) 3.6 %; Mean Corpuscular Hemoglobin 31.2 pg (25.0-34.0); Mean Corpuscular Hgb Conc 32.2 g/dL (32.0-36.0); Mean Platelet Volume 10.7 fL (9.4-12.3); Monocytes # (auto) 0.96 K/uL (0.24-0.82); Monocytes % (auto) 8.7 %; Neutrophils # (auto) 9.54 K/uL (1.4-6.5); Neutrophils % (auto) 86.8 %; Platelet Count 285 K/uL (130-400); RDW Coefficient of Variation 16.2 % (11.5-14.5); RDW Standard Deviation 57.2 fL (36.4-46.3); White Blood Count 10.99 K/ul (4.8-10.8)
[2022-06-28 14:55] LABS: Prothrombin Time > 90.0 Seconds (9.0-12.0)
[2022-06-28 15:07] LABS: Albumin Globulin Ratio 1.4 (0.9-2); Albumin Level 3.6 gm/dl (3.4-5.0); Bilirubin,Total 1.2 mg/dl (0.2-1.0); Calcium 9.4 mg/dl (8.5-10.1); Creatinine Clr Calc Pharmacy 79.6 ml/min; Est GFR (African American) 78.8 ml/min; Globulin 2.6 gm/dl (2.5-4.0); Potassium 3.7 mmol/L (3.5-5.1); Total Protein 6.2 gm/dl (6.0-8.3)
--- NOTE | 2022-06-28 15:35 | Emergency Department Note ---
History of Present Illness General Chief complaint: Leg Injury/Pain Stated complaint: left thigh hematoma Time Seen by Provider: 06/28/22 13:16 History of Present Illness Maximum Pain Intensity: 10 This 77-year-old female presents today via BLS ambulance, for inability to ambulate at home. I saw her yesterday in the ED for similar symptoms. She was found to have a fairly large thigh hematoma at that time. Exam revealed no rupture of her quadriceps tendon, patellar tendon, or hamstrings. She was able to perform a straight leg raise with assisted elevation of her thigh. Patient w as recommended rehab or assisted facility placement yesterday. She flatly refused and insisted on her returning home. After being home since last night, she realizes that she cannot get around in her home and that she will need admission to a assisted facility. She does have a wheelchair at home, but was unable to reliably make it to the bathroom. No new injury. No new falls. She continues to have pain in her anterior and lateral left thigh. She continues to have compression wraps present on both lower legs for edema control. Home Medications Medication Instructions Recorded Confirmed Type acetaminophen 500 mg tablet 1,000 mg PO BID PRN Pain 03/15/22 06/27/22 History bupropion HCl 300 mg 24 hr tablet, 300 mg PO DAILY 03/15/22 06/27/22 History extended release escitalopram oxalate 20 mg tablet 20 mg PO DAILY 03/15/22 06/27/22 History furosemide 40 mg tablet 40 mg PO DAILY 03/15/22 06/27/22 History montelukast 10 mg tablet 10 mg PO QPM 03/15/22 06/27/22 History multivitamin 1 tab PO DAILY 03/15/22 06/27/22 History oxybutynin chloride 15 mg 15 mg PO DAILY 03/15/22 06/27/22 History tablet,extended release 24 hr pregabalin 100 mg capsule 100 mg PO BID 03/15/22 06/27/22 History warfarin 5 mg tablet 5 mg PO DIRECTED 03/15/22 06/27/22 History potassium chloride 20 mEq 20 meq PO DAILY #3 tabs 03/19/22 06/27/22 Rx tablet,extended release docusate sodium 100 mg capsule 100 mg PO BID PRN Constipation 06/27/22 06/27/22 History metoprolol tartrate 25 mg tablet 25 mg PO BID 06/27/22 06/27/22 History polyethylene glycol 3350 17 gram 17 g PO DAILY PRN Constipation 06/27/22 06/27/22 History oral powder packet (Miralax) spironolactone 25 mg tablet 12.5 mg PO DAILY 06/27/22 06/27/22 History levothyroxine 100 mcg tablet 100 mcg PO DAILYBB 30 days #30 tabs 07/02/22 Rx (Synthroid) Allergies Allergy/AdvReac Type Severity Reaction Status Date / Time Penicillins Allergy Intermediate HIVES Verified 06/27/22 16:44 Sulfa (Sulfonamide Allergy Unknown ` Verified 06/27/22 16:44 Antibiotics) aspirin AdvReac Severe BLEEDING Verified 06/27/22 16:44 ULCER Past Med/Surg History Medical History (Updated 07/02/22 @ 20:57 by Christoph Ford PA-C) Atrial fibrillation Cellulitis Congestive heart failure Major depression, chronic Morbid obesity Neuropathy Osteoarthritis Surgical History Hx of total knee arthroplasty Family History Other No pertinent family history Social History Smoking Status: Former smoker Hx Alcohol Use: No Hx Substance Use: No Preferred Language: Yakut Communication Ability: Effective 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 Beliefs That Will Affect Care: None marital status: Current Living Situation: Alone Current Living Situation Comment: friend helps with grocery shopping, takes van to appointments current occupational status: retired Other Information That Helps Us Care for You: No Feels Safe at Home: Yes Safety Concerns: Feels Safe At This Time Assistive Devices: Glasses and Walker Review of Systems A total of 10 systems reviewed and were otherwise negative Physical Exam Vital Signs Vital Signs - 24 hr 06/28/22 13:23 06/28/22 13:23 Temperature 36.8 C 36.9 C Temperature Source Oral Oral Pulse Rate 69 Pulse Rate [Right Finger] 89 Respiratory Rate 18 18 Respiratory Effort / Characteristics Non-Labored Spontaneous Respiratory Depth Normal Respiratory Pattern Regular Blood Pressure 106/60 Blood Pressure [Right Arm] 104/73 Blood Pressure Mean 75 Blood Pressure Mean [Right Arm] 83 Blood Pressure Position Lying Blood Pressure Position [Right Arm] Lying Pulse Oximetry 92 91 Oxygen Delivery Method Room Air Room Air Sepsis Recent Fever Within 48 Hours No Sepsis New/Unexplained Change in Mental Status No Sepsis Action Taken by Nursing No Action Required General: Well-developed, morbidly obese, elderly white female, in no acute distress. Laying on the bed. Alert and oriented. Conversive. Skin: Warm and dry with fair turgor. No rashes. She does have ecchymosis present over the left anterior thigh. No appreciable edema. There is no notable girth difference between the thighs. No open wound on the thigh. She does have compression bandages in place along both lower legs for cellulitis and edema control. She states these were placed by the wound care center. HEENT: Normocephalic atraumatic. Eyes PERRLA, EOMI. No conjunctiva or scleral injection. Ears TMs intact bilaterally with good light reflexes. No erythema or bulging. No hemotympanum. Canals are patent. Nares patent bilaterally without turbinate enlargement. No significant drainage. No epistaxis. Oropharynx without erythema or exudate. Uvula midline, oral mucosa moist. No lesions present. Lymphatics are palpated without anterior or posterior chain enlargement or tenderness. Heart: Irregularly irregular. No murmurs, gallops, or rubs. Lungs: Lungs are clear to auscultation. No crackles rhonchi or wheezing. Good air movement. The patient is able to take a deep breath. Abdomen: Morbidly obese. Bowel sounds present x4. Soft nontender. No organ omegaly. Musculoskeletal: Patient has discomfort with palpation over the anterior and lateral thigh. No pain with palpation over her knee. Intact passive flexion and extension to the knee. She is able to actively extend her lower extremity when I lift her thigh off of the table. She cannot lift the entire extremity on her own. Intact motor function of the ankle and toes. No pain with logrolling of the hip. Neurologic: Gross sensation is intact across both lower extremities by soft touch. Course Administered Medications Discontinued Medications Acetaminophen (Acetaminophen 500 Mg Tab) 1,000 mg PO Q8H CARLOS ENRIQUE Stop: 07/28/22 22:59 Last Admin: 07/02/22 08:32 Dose: 1,000 mg Documented By: Admin: 07/01/22 20:00 Dose: 1,000 mg Documented By: Admin: 07/01/22 15:18 Dose: Not Given Documented By: Admin: 07/01/22 06:00 Dose: Not Given Documented By: Admin: 06/30/22 22:47 Dose: 1,000 mg Documented By: Admin: 06/30/22 15:52 Dose: Not Given Documented By: Admin: 06/30/22 06:02 Dose: 1,000 mg Documented By: Admin: 06/29/22 22:38 Dose: 1,000 mg Documented By: Admin: 06/29/22 16:00 Dose: 1,000 mg Documented By: Admin: 06/29/22 06:34 Dose: 1,000 mg Documented By: Admin: 06/28/22 22:29 Dose: 1,000 mg Documented By: FRAN Bupropion HCl (Bupropion Xl 300 Mg Tabcr) 300 mg PO DAILY CARLOS ENRIQUE Stop: 07/29/22 08:59 Last Admin: 07/02/22 08:31 Dose: 300 mg Documented By: Admin: 07/01/22 08:08 Dose: 300 mg Documented By: Admin: 06/30/22 08:35 Dose: 300 mg Documented By: Admin: 06/29/22 08:05 Dose: 300 mg Documented By: YUKI Docusate Sodium (Docusate Sodium 100 Mg Cap) 100 mg PO BID CARLOS ENRIQUE Stop: 08/01/22 08:59 Last Admin: 07/02/22 08:36 Dose: 100 mg Documented By: JAROD Escitalopram Oxalate (Escitalopram Oxalate 20 Mg Tab) 20 mg PO DAILY CARLOS ENRIQUE Stop: 07/29/22 08:59 Last Admin: 07/02/22 08:31 Dose: 20 mg Documented By: Admin: 07/01/22 08:08 Dose: 20 mg Documented By: Admin: 06/30/22 08:35 Dose: 20 mg Documented By: Admin: 06/29/22 08:05 Dose: 20 mg Documented By: YUKI Furosemide (Furosemide 20 Mg Tab) 20 mg PO Q24H CARLOS ENRIQUE Stop: 07/29/22 16:59 Last Admin: 07/01/22 17:00 Dose: 20 mg Documented By: Admin: 06/30/22 17:19 Dose: 20 mg Documented By: Admin: 06/29/22 16:06 Dose: 20 mg Documented By: YUKI Acetaminophen (Ofirmev) 1,000 mg in 100 mls @ 400 mls/hr IV NOW STA Stop: 06/28/22 13:51 Last Infusion: 06/28/22 15:09 Dose: 0 mls/hr Documented By: Admin: 06/28/22 14:46 Dose: 400 mls/hr Documented By: KELBY Phytonadione 10 mg/ Dextrose 51 mls @ 102 mls/hr IV ONE ONE Stop: 06/29/22 08:29 Last Infusion: 06/29/22 09:20 Dose: 0 mls/hr Documented By: Admin: 06/29/22 08:47 Dose: 102 mls/hr Documented By: YUKI Prothrombin Complex Concent ( (Human) 5,000 units/ Syringe) 200 mls @ 10 mls/m in IV NOW STA; Protocol Stop: 06/29/22 08:17 Last Admin: 06/29/22 19:01 Dose: Not Given Documented By: LETA Prothrombin Complex Concent ( (Human) 5,000 units/ Syringe) 200 mls @ 10 mls/m in IV TODAY@1000 CARLOS ENRIQUE; Protocol Stop: 06/29/22 11:00 Last Admin: 06/29/22 10:24 Dose: 10 mls/min Documented By: YUKI Levothyroxine Sodium (Levothyroxine Sodium 100 Mcg Tablet) 100 mcg PO DAILYBB [facility] Stop: 07/29/22 06:29 Last Admin: 07/02/22 05:42 Dose: 100 mcg Documented By: Admin: 07/01/22 05:58 Dose: 100 mcg Documented By: Admin: 06/30/22 06:02 Dose: 100 mcg Documented By: Admin: 06/29/22 06:34 Dose: 100 mcg Documented By: FRAN Metoprolol Tartrate (Metoprolol Tartrate 25 Mg Tab) 25 mg PO BID [facility] Stop: 07/28/22 20:59 Last Admin: 07/02/22 08:31 Dose: 25 mg Documented By: Admin: 07/01/22 20:00 Dose: 25 mg Documented By: Admin: 07/01/22 08:07 Dose: 25 mg Documented By: Admin: 06/30/22 21:04 Dose: 25 mg Documented By: Admin: 06/30/22 08:33 Dose: 25 mg Documented By: Admin: 06/29/22 20:41 Dose: 25 mg Documented By: Admin: 06/29/22 08:05 Dose: 25 mg Documented By: Admin: 06/28/22 22:29 Dose: 25 mg Documented By: FRAN Montelukast Sodium (Montelukast Sodium 10 Mg Tablet) 10 mg PO QPM CARLOS ENRIQUE Stop: 07/28/22 20:59 Last Admin: 07/01/22 20:00 Dose: 10 mg Documented By: Admin: 06/30/22 21:04 Dose: 10 mg Documented By: Admin: 06/29/22 20:41 Dose: 10 mg Documented By: Admin: 06/28/22 22:30 Dose: 10 mg Documented By: EM Morphine Sulfate (Morphine Sulfate 4 Mg/Ml 1 Ml Carp\Vial) 4 mg IV Q4H PRN PRN Reason: Pain Stop: 07/13/22 03:04 Last Admin: 07/01/22 11:27 Dose: 4 mg Documented By: JAROD Oxybutynin Chloride (Oxybutynin Chloride Xl 5 Mg Tabcr) 15 mg PO DAILY CARLOS ENRIQUE Stop: 07/29/22 08:59 Last Admin: 07/02/22 08:31 Dose: 15 mg Documented By: Admin: 07/01/22 08:07 Dose: 15 mg Documented By: Admin: 06/30/22 08:35 Dose: 15 mg Documented By: Admin: 06/29/22 08:05 Dose: 15 mg Documented By: YUKI Oxycodone HCl (Oxycodone Hcl Ir 5 Mg Tab (Immediate Release)) 5 - 10 mg PO QID PRN PRN Reason: Pain Stop: 07/13/22 03:04 Last Admin: 07/02/22 08:36 Dose: 10 mg Documented By: Admin: 07/01/22 10:35 Dose: 10 mg Documented By: Admin: 06/29/22 11:17 Dose: 10 mg Documented By: Admin: 06/29/22 03:35 Dose: 10 mg Documented By: EM Phytonadione (Phytonadione 5 Mg Tab) 10 mg PO NOW STA Stop: 06/28/22 16:04 Last Admin: 06/28/22 16:45 Dose: 10 mg Documented By: KELBY Potassium Chloride (Potassium Chloride Crtab 20 Meq Tabcr) 40 meq PO BID CARLOS ENRIQUE Stop: 07/29/22 08:59 Last Admin: 07/02/22 08:40 Dose: Not Given Documented By: Admin: 07/01/22 20:01 Dose: Not Given Documented By: Admin: 07/01/22 08:10 Dose: Not Given Documented By: Admin: 06/30/22 21:04 Dose: 40 meq Documented By: Admin: 06/30/22 08:35 Dose: 40 meq Documented By: Admin: 06/29/22 20:41 Dose: 40 meq Documented By: Admin: 06/29/22 08:47 Dose: 40 meq Documented By: BT Pregabalin (Pregabalin 100 Mg Cap) 100 mg PO BID CARLOS ENRIQUE Stop: 07/30/22 20:59 Last Admin: 07/02/22 08:36 Dose: 100 mg Documented By: Admin: 07/01/22 19:59 Dose: 100 mg Documented By: Admin: 07/01/22 08:10 Dose: 100 mg Documented By: Admin: 06/30/22 21:04 Dose: 100 mg Documented By: LETA Spironolactone (Spironolactone 12.5 Mg Tab) 12.5 mg PO DAILY CARLOS ENRIQUE Stop: 07/29/22 08:59 Last Admin: 07/02/22 08:31 Dose: 12.5 mg Documented By: Admin: 07/01/22 08:07 Dose: 12.5 mg Documented By: Admin: 06/30/22 08:35 Dose: 12.5 mg Documented By: Admin: 06/29/22 08:05 Dose: 12.5 mg Documented By: BT Medical Decision Making Differential Diagnosis Fracture, muscle rupture, quadriceps tendon rupture, spontaneous hematoma, contusion Medical Records Attestation: I reviewed the patient's medical records. Home Medications Current Medication List: was personally reviewed by me Laboratory Data CBC, chemistry panel, PT/INR, and COVID test were obtained. CBC shows an elevated WBC of 10.99. Hemoglobin 10.3 and hematocrit 32.0. COVID test was negative. INR is listed as greater than 9.6. Chemistry panel is unremarkable. Result diagrams: 07/02/22 07:00 07/02/22 07:00 Lab Results 06/28/22 06/28/22 06/28/22 Range/Units 14:23 14:23 14:23 WBC 10.99 H (4.8-10.8) K/ul RBC 3.30 L (3.93-5.22) M/uL Hgb 10.3 L (12.0-16.0) g/dl Hct 32.0 L (34.1-44.9) % MCV 97.0 (80.0-100.0) fL MCH 31.2 (25.0-34.0) pg MCHC 32.2 (32.0-36.0) g/dL RDW Std Deviation 57.2 H (36.4-46.3) fL RDW Coeff of [place] 16.2 H (11.5-14.5) % Plt Count 285 (130-400) K/uL MPV 10.7 (9.4-12.3) fL Immature Gran % (Auto) 0.5 % Neut % (Auto) 86.8 % Lymph % (Auto) 3.6 % [place] % (Auto) 8.7 % Eos % (Auto) 0.2 % Baso % (Auto) 0.2 % Neut # (Auto) 9.54 H (1.4-6.5) K/uL Lymph # (Auto) 0.40 L (1.2-3.4) K/uL [place] # (Auto) 0.96 H (0.24-0.82) K/uL Eos # (Auto) 0.02 (0-0.50) K/uL Baso # (Auto) 0.02 (0-0.2) K/uL Immature Gran # (Auto) 0.05 H (0.00-0.02) K/uL PT > 90.0 H (9.0-12.0) Seconds INR > 9.6 H* (0.9-1.1) Sodium 139 (136-145) mmol/L Potassium 3.7 (3.5-5.1) mmol/L Chloride 104 (98-107) mmol/L Carbon Dioxide 28 (21-32) mmol/L Anion Gap 7 (3-11) BUN 16 (6-23) mg/dl Creatinine 0.84 (0.6-1.2) mg/dl Est Cr Clr Drug Dosing 79.6 ml/min Est GFR ( Amer) 78.8 ml/min Est GFR (Non-Af Amer) 68.0 ml/min BUN/Creatinine Ratio 19.0 (10-20) Glucose 129 H (70-99(Fasting)) mg/dl Calcium 9.4 (8.5-10.1) mg/dl Total Bilirubin 1.2 H (0.2-1.0) mg/dl AST 34 (13-39) U/L ALT 13 (7-52) U/L Alkaline Phosphatase 73 (34-104) U/L Total Protein 6.2 (6.0-8.3) gm/dl Albumin 3.6 (3.4-5.0) gm/dl Globulin 2.6 (2.5-4.0) gm/dl Albumin/Globulin Ratio 1.4 (0.9-2) SARS-CoV-2, RNA, NAAT (NEGATIVE) 06/28/22 Range/Units 14:50 WBC (4.8-10.8) K/ul RBC (3.93-5.22) M/uL Hgb (12.0-16.0) g/dl Hct (34.1-44.9) % MCV (80.0-100.0) fL MCH (25.0-34.0) pg MCHC (32.0-36.0) g/dL RDW Std Deviation (36.4-46.3) fL RDW Coeff of [place] (11.5-14.5) % Plt Count (130-400) K/uL MPV (9.4-12.3) fL Immature Gran % (Auto) % Neut % (Auto) % Lymph % (Auto) % [place] % (Auto) % Eos % (Auto) % Baso % (Auto) % Neut # (Auto) (1.4-6.5) K/uL Lymph # (Auto) (1.2-3.4) K/uL [place] # (Auto) (0.24-0.82) K/uL Eos # (Auto) (0-0.50) K/uL Baso # (Auto) (0-0.2) K/uL Immature Gran # (Auto) (0.00-0.02) K/uL PT (9.0-12.0) Seconds INR (0.9-1.1) Sodium (136-145) mmol/L Potassium (3.5-5.1) mmol/L Chloride (98-107) mmol/L Carbon Dioxide (21-32) mmol/L Anion Gap (3-11) BUN (6-23) mg/dl Creatinine (0.6-1.2) mg/dl Est Cr Clr Drug Dosing ml/min Est GFR ( Amer) ml/min Est GFR (Non-Af Amer) ml/min BUN/Creatinine Ratio (10-20) Glucose (70-99(Fasting)) mg/dl Calcium (8.5-10.1) mg/dl Total Bilirubin (0.2-1.0) mg/dl AST (13-39) U/L ALT (7-52) U/L Alkaline Phosphatase (34-104) U/L Total Protein (6.0-8.3) gm/dl Albumin (3.4-5.0) gm/dl Globulin (2.5-4.0) gm/dl Albumin/Globulin Ratio (0.9-2) SARS-CoV-2, RNA, NAAT NEGATIVE (NEGATIVE) ECG Data Additional Comments: EKG obtained today shows atrial fibrillation with a rate of 73. No acute ST or T wave changes are noted. This was reviewed with Dr. Mckinley. Blood Pressure Blood Pressure Findings: Normal blood pressure MDM Narrative Patient was evaluated in room A2. Conservative care measures were discussed. IV was established. Labs were obtained. EKG was also obtained today. It confirmed her atrial fibrillation. Patient was placed on a security monitor and remained in atrial fibrillation with a rate in the 70s. Her INR was severely elevated at greater than 9.6. Because of this, patient was given 10 mg of vitamin K orally. She also requested something for pain control. Because of her elevated INR, she was given Tylenol 1000 mg IV. Hospitalist service was contacted for admission. Patient will likely require placement at a assisted facility. She is reluctantly agreeable. She understands that she is not doing well at home and needs assistance. Please see Dr. Lyles's dictation for final management. She will likely require PT and OT evaluation prior to placement. Patient is adamant that she takes the correct amount of Coumadin and takes no other medication that interacts with it. She denies any change in diet. Impression & Plan Supratherapeutic INR, Hematoma of left thigh Patient will be admitted to the hospitalist service. 10 mg vitamin K was provided orally. Coumadin will be held. Ultimately she will require nursing facility or rehab placement. Discharge Plan Visit Data Chief Complaint: Leg Injury/Pain Stated Complaint: left thigh hematoma ED Provider: Navin Mckinley ED Midlevel Provider: Christoph Ford Discharge Problem: Supratherapeutic INR, Hematoma of left thigh Patient Disposition: Admitted As Inpatient Condition: Fair Discharge Instructions Interventions: ED Discharge Assessment Last Done: 06/28/22 19:30
[2022-06-28 15:43] LABS: INR > 9.6 (0.9-1.1)
[2022-06-28] MEDS ORDERED: PHYTONADIONE 5 MG TAB PO STA (16:03)
--- NOTE | 2022-06-28 17:48 | CT Scan Report ---
CT OF THE ABDOMEN AND PELVIS WITHOUT CONTRAST CLINICAL HISTORY: r/o hemorrhage, highly elevated INR COMPARISON STUDY: No previous studies for comparison. TECHNIQUE: Axial images of the abdomen and pelvis were obtained without IV contrast. Images were revi ewed in the axial, sagittal, and coronal planes. Automated exposure control was utilized for the babar dy. A dose lowering technique was utilized adhering to the principles of ALARA. FINDINGS: Cardiomegaly and coronary artery calcification are noted. No pneumatosis, free air or hellen l venous gas is present. There is no retroperitoneal hematoma. Gallbladder is mildly distended. Evalu ation of the abdomen and pelvis is suboptimal on this unenhanced exam. Liver, spleen, adrenal glands and pancreas are unremarkable. There is no biliary or pancreatic ductal dilatation. A 1.2 cm lesion w ithin the midpole of the left kidney is suboptimally assessed on this unenhanced exam. This measures near water attenuation. There is no hydronephrosis. No evidence for a bowel obstruction. Sigmoid dive rticulosis is noted without evidence for acute diverticulitis. There is no retroperitoneal hematoma. An acute intramuscular hematoma of the left thigh is better depicted on the left femur CT which will be reported separately. IMPRESSION: 1. No retroperitoneal hematoma. 2. Acute intramuscular hematoma of the left thigh, better depicted on the left femur CT which will be reported separately. 3. No bowel obstruction. 4. Mild gallbladder distention. ACT 112: Negative or not required by law. Electronically signed by: Boston Hammond M.D. 06/28/2022 5:45 PM
--- NOTE | 2022-06-28 17:54 | CT Scan Report ---
LEFT FEMUR CT WITHOUT CONTRAST CLINICAL HISTORY: hematoma, pain COMPARISON STUDY: Left femur and left knee radiographs June 27, 2022. TECHNIQUE: Axial images of the left femur and thigh were obtained without IV contrast. Sagittal and c oronal reconstructions were viewed. Automated exposure control was utilized for the study. A dose lo wering technique was utilized adhering to the principles of ALARA. FINDINGS: No acute fracture within the left femur is noted. Alignment of the left knee arthroplasty i s anatomic. Note is made of multiple acute intramuscular hematomas with fluid fluid levels within the left vastus intermedius and vastus medialis. The largest hematoma measures 10 x 6.7 x 5.4 cm. Left t high edema is noted. No acute fracture within visualized portions of the pelvis. Sigmoid diverticulos is is noted. IMPRESSION: 1. Multiple acute intramuscular hematomas of the left vastus intermedius and vastus medialis which me asure up to 10 x 6.7 x 5.4 cm. 2. No acute fracture within the left femur. ACT 112: Negative or not required by law. Electronically signed by: Boston Hammond M.D. 06/28/2022 5:51 PM
--- NOTE | 2022-06-28 19:16 | History & Physical Report ---
Date of Service June 28, 2022 Assessment & Plan (1) Hematoma of left thigh: (2) Supratherapeutic INR: Plan: 77-year-old female history of CHF diastolic type, hypertensive heart disease, A. fib on Coumadin, hypertension, CKD stage III Morbid obesity Presenting with left thigh pain x3 to 4 days. Left thigh hematoma, pain Supratherapeutic INR, on chronic Coumadin for A. fib Ambulatory dysfunction CT left thigh: Confirming acute hematoma on left thigh CT abdomen pelvis: No intra-abdominal or retroperitoneal hematoma Vitamin K given Monitor INR daily Tylenol 1 g p.o. every 8 hours As needed tramadol Orthopedic service consulted PT and OT evaluate CHF, diastolic type Not in exacerbation Continue Lasix 40 mg in a.m. 20 mg in p.m. Spironolactone 12.5 mg daily Potassium 20 mg once daily Atrial fibrillation on Coumadin Continue metoprolol tartrate 25 mg p.o. twice daily Hold Coumadin Hypertension Monitor CKD stage III Creatinine at baseline Hypothyroidism Continue levothyroxine 100 mcg daily Morbid obesity Counseling Urinary incontinence Oxybutynin 30 mg p.o. daily Major depressive disorder Continue Wellbutrin and Lexapro Chronic leg edema Follows with wound care center Patient declined examination tonight, no pain/fever chills Melanoma On chemo, scheduled for Wednesday. 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 fib on Coumadin, hypertension, CKD stage III Morbid obesity Presenting with left thigh pain x3 to 4 days. Patient was doing fine until about 3 to 4 days prior to admission when she started to have left thigh pain and noticed bruising on the left side. The pain progressed to the point that she had difficulty ambulating hence presented to the ER yesterday for evaluation. She denies any history of falls, trauma to the left knee. Patient was advised to stay for admission for left thigh hematoma and ambulatory dysfunction but patient declined and requested to be discharged home. At home, patient still had difficulty with ambulating and was having persistent pain of the left thigh. Denies abdominal pain, back pain, headache, dizziness, chest pain, palpitations, shortness of breath. Today at the ER, patient found to have an INR of more than 9, vitamin K 10 mg IV given. Hospice consulted for admission. On exam, patient seen resting up in bed, comfortable, watching TV, not in distress. Reports moderate pain on the left knee which was resolved with IV Tylenol given earlier in the ER. Denies fevers or chills No other new symptoms. Allergies Allergy/AdvReac Type Severity Reaction Status Date / Time Penicillins Allergy Intermediate HIVES Verified 06/27/22 16:44 Sulfa (Sulfonamide Allergy Unknown ` Verified 06/27/22 16:44 Antibiotics) aspirin AdvReac Severe BLEEDING Verified 06/27/22 16:44 ULCER Home Medications Medication Instructions Recorded Confirmed Type acetaminophen 500 mg tablet 1,000 mg PO BID PRN Pain 03/15/22 06/27/22 History bupropion HCl 300 mg 24 hr tablet, 300 mg PO DAILY 03/15/22 06/27/22 History extended release escitalopram oxalate 20 mg tablet 20 mg PO DAILY 03/15/22 06/27/22 History furosemide 40 mg tablet 40 mg PO DAILY 03/15/22 06/27/22 History montelukast 10 mg tablet 10 mg PO QPM 03/15/22 06/27/22 History multivitamin 1 tab PO DAILY 03/15/22 06/27/22 History oxybutynin chloride 15 mg 15 mg PO DAILY 03/15/22 06/27/22 History tablet,extended release 24 hr pregabalin 100 mg capsule 100 mg PO BID 03/15/22 06/27/22 History warfarin 5 mg tablet 5 mg PO DIRECTED 03/15/22 06/27/22 History potassium chloride 20 mEq 20 meq PO DAILY #3 tabs 03/19/22 06/27/22 Rx tablet,extended release docusate sodium 100 mg capsule 100 mg PO BID PRN Constipation 06/27/22 06/27/22 History hydrocodone 5 mg-acetaminophen 325 1 tab PO Q6H PRN pain #12 tabs 06/27/22 Rx mg tablet levothyroxine 75 mcg tablet 75 mcg PO DAILY 06/27/22 06/27/22 History metoprolol tartrate 25 mg tablet 25 mg PO BID 06/27/22 06/27/22 History polyethylene glycol 3350 17 gram 17 g PO DAILY PRN Constipation 06/27/22 06/27/22 History oral powder packet (Miralax) spironolactone 25 mg tablet 12.5 mg PO DAILY 06/27/22 06/27/22 History Past Med/Surg History Medical History (Updated 06/28/22 @ 19:12 by Armando Cox MD) Cellulitis Congestive heart failure Major depression, chronic Morbid obesity Neuropathy Osteoarthritis Surgical History (Updated 06/27/22 @ 16:29 by Christoph Ford PA-C) Hx of total knee arthroplasty Family History (Updated 06/27/22 @ 16:29 by Christoph Ford PA-C) Other No pertinent family history Social History (Updated 06/27/22 @ 16:29 by Christoph Ford PA-C) Smoking Status: Former smoker Hx Alcohol Use: No Hx Substance Use: No Preferred Language: Central African Communication Ability: Effective 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: No Beliefs That Will Affect Care: None marital status: Current Living Situation: Alone Current Living Situation Comment: friend helps with grocery shopping, takes van to appointments current occupational status: retired Other Information That Helps Us Care for You: No Feels Safe at Home: Yes Safety Concerns: Feels Safe At This Time Assistive Devices: Glasses and Walker Review of Systems Review of Systems: all noted and negative except for above Physical Exam Physical Exam: General- oriented x 3, not in distress, speaks in sentences with no effort or accessory muscle use Morbidly obese Head- atraumatic Eyes- PERRL, EOMI, anicteric ENT- oropharynx clear Neck- supple, no JVD, no adenopathy, no thyromegaly; carotids +2/2, no bruits appreciated Lungs- clear to auscultation bilaterally, no rales/wheezes Heart- normal rate, regular rhythm; no murmur, no gallop, no rub appreciated Abdomen- normal bowel sounds, nondistended, soft, nontender, no masses or hepatosplenomegaly Extremities- Positive hematoma on the left anterior thigh, medial aspect, distal aspect Positive wrapping on both lower extremities, no bleeding noted no pretibial edema, no calf tenderness; peripheral pulses intact Neuro- alert, oriented x 3; CN 2-12 grossly intact; motor 5/5 bilaterally;sensation 100% on all extremities; no other gross focal neurologic d eficits Skin- warm & dry Results & Data Results & Data ([facility]) Vital Signs (Past 12 Hours) Vital Signs Temp Pulse Pulse Resp BP BP Pulse Ox 06/28/22 19:02 77 16 06/28/22 19:00 84 24 06/28/22 18:50 62 18 06/28/22 18:40 65 18 92 06/28/22 18:30 69 18 92 06/28/22 18:20 67 19 93 06/28/22 18:10 89 21 90 06/28/22 18:00 69 18 90 06/28/22 17:50 73 20 90 06/28/22 17:45 65 17 90 06/28/22 17:40 89 20 92 06/28/22 17:00 71 18 74/50 L 06/28/22 13:23 36.9 C 89 18 104/73 91 06/28/22 13:23 36.8 C 69 18 106/60 92 O2 Del Method 06/28/22 19:02 06/28/22 19:00 06/28/22 18:50 06/28/22 18:40 06/28/22 18:30 06/28/22 18:20 06/28/22 18:10 06/28/22 18:00 06/28/22 17:50 06/28/22 17:45 06/28/22 17:40 Room Air 06/28/22 17:00 06/28/22 13:23 Room Air 06/28/22 13:23 Room Air all noted and reviewed including below Laboratory Results all noted and reviewed including below Code Status & VTE Plan VTE Prophylaxis Plan VTE Prophylaxis will be ordered: Yes
[2022-06-28 20:26] LABS: Basophils # (auto) 0.01 K/uL (0-0.2); Basophils % (auto) 0.1 %; Eosinophils % (auto) 1.1 %; Immature Granulocytes # (auto) 0.03 K/uL (0.00-0.02); Immature Granulocytes % (auto) 0.3 %; Lymphocytes # (auto) 0.64 K/uL (1.2-3.4); Lymphocytes % (auto) 6.8 %; Mean Corpuscular Hgb Conc 32.3 g/dL (32.0-36.0); Mean Platelet Volume 10.8 fL (9.4-12.3); Monocytes # (auto) 0.78 K/uL (0.24-0.82); Monocytes % (auto) 8.3 %; Neutrophils # (auto) 7.87 K/uL (1.4-6.5); Neutrophils % (auto) 83.4 %; Platelet Count 311 K/uL (130-400); RDW Coefficient of Variation 16.2 % (11.5-14.5); RDW Standard Deviation 56.9 fL (36.4-46.3); Red Blood Count 3.23 M/uL (3.93-5.22); White Blood Count 9.43 K/ul (4.8-10.8)
[2022-06-28 20:45] LABS: BUN Creatinine Ratio 23.9 (10-20); Creatinine Clr Calc Pharmacy 94.2 ml/min; Est GFR (African American) 96.6 ml/min; Est GFR (Non-African American) 83.3 ml/min; Potassium 3.2 mmol/L (3.5-5.1)
[2022-06-28 20:50] LABS: Prothrombin Time > 90.0 Seconds (9.0-12.0)
[2022-06-28 21:00] LABS: INR > 9.6 (0.9-1.1)
[2022-06-28] MEDS: ACETAMINOPHEN 500 MG TAB PO SCH (22:29)
[2022-06-28] MEDS: METOPROLOL TARTRATE 25 MG TAB PO SCH (22:29)
[2022-06-28] MEDS: MONTELUKAST SODIUM 10 MG TABLET PO SCH (22:30)
[2022-06-29] MEDS ORDERED: MoRPHine SULFATE 4 MG/ML 1 ML CARP\\VIAL IV PRN (03:05)
[2022-06-29] MEDS: oxyCODONE HCL IR 5 MG TAB (IMMEDIATE RELEASE) PO PRN ×2 (03:35→11:17)
[2022-06-29] MEDS: LEVOTHYROXINE SODIUM 100 MCG TABLET PO SCH (06:34)
[2022-06-29] MEDS: ACETAMINOPHEN 500 MG TAB PO SCH ×3 (06:34→22:38)
[2022-06-29 06:43] LABS: Basophils # (auto) 0.02 K/uL (0-0.2); Basophils % (auto) 0.2 %; Eosinophils % (auto) 2.1 %; Hematocrit (blood only) 28.8 % (34.1-44.9); Hemoglobin 9.4 g/dl (12.0-16.0); Immature Granulocytes # (auto) 0.05 K/uL (0.00-0.02); Immature Granulocytes % (auto) 0.5 %; Lymphocytes # (auto) 0.51 K/uL (1.2-3.4); Lymphocytes % (auto) 5.2 %; Mean Corpuscular Hemoglobin 31.4 pg (25.0-34.0); Mean Corpuscular Hgb Conc 32.6 g/dL (32.0-36.0); Mean Corpuscular Volume 96.3 fL (80.0-100.0); Monocytes % (auto) 9.2 %; Neutrophils # (auto) 8.06 K/uL (1.4-6.5); Neutrophils % (auto) 82.8 %; Platelet Count 277 K/uL (130-400); RDW Coefficient of Variation 16.2 % (11.5-14.5); RDW Standard Deviation 57.1 fL (36.4-46.3); Red Blood Count 2.99 M/uL (3.93-5.22); White Blood Count 9.74 K/ul (4.8-10.8)
[2022-06-29 07:00] LABS: BUN Creatinine Ratio 30.5 (10-20); Calcium 8.6 mg/dl (8.5-10.1); Creatinine Clr Calc Pharmacy 111.3 ml/min; Est GFR (African American) 103.9 ml/min; Est GFR (Non-African American) 89.7 ml/min; Potassium 3.2 mmol/L (3.5-5.1)
[2022-06-29 07:44] LABS: Prothrombin Time > 90.0 Seconds (9.0-12.0)
[2022-06-29 07:53] LABS: INR > 9.6 (0.9-1.1)
[2022-06-29] MEDS ORDERED: SODIUM CHLORIDE 0.9% 250 ML IV PRN (07:54)
[2022-06-29] MEDS ORDERED: PROTHROMBIN COMP CONC- KCENTRA 5,000 UNITS in SYRINGE 0 ML IV STA (07:58)
[2022-06-29] MEDS ORDERED: PHYTONADIONE 10 MG in DEXTROSE 5% 50 ML IV ONE (08:00)
[2022-06-29] MEDS: OXYBUTYNIN CHLORIDE XL 5 MG TABCR PO SCH (08:05)
[2022-06-29] MEDS: METOPROLOL TARTRATE 25 MG TAB PO SCH ×2 (08:05→20:41)
[2022-06-29] MEDS: buPROPion XL 300 MG TABCR PO SCH (08:05)
[2022-06-29] MEDS: SPIRONOLACTONE 12.5 MG TAB PO SCH (08:05)
[2022-06-29] MEDS: ESCITALOPRAM OXALATE 20 MG TAB PO SCH (08:05)
[2022-06-29] MEDS: POTASSIUM CHLORIDE CRTAB 20 MEQ TABCR PO SCH ×2 (08:47→20:41)
[2022-06-29 08:57] LABS: Prothrombin Time > 90.0 Seconds (9.0-12.0)
[2022-06-29] MEDS ORDERED: POTASSIUM CHLORIDE CRTAB 20 MEQ TABCR PO SCH (09:00)
[2022-06-29 09:04] LABS: INR > 9.6 (0.9-1.1)
[2022-06-29] MEDS ORDERED: PROTHROMBIN COMP CONC- KCENTRA 5,000 UNITS in SYRINGE 0 ML IV SCH (10:00)
[2022-06-29 10:24] LABS: Partial Thromboplastin Ratio 4.3
--- NOTE | 2022-06-29 10:27 | Hospitalist Progress Note ---
Date of Service June 29, 2022 Assessment & Plan (1) Hematoma of left thigh: (2) Supratherapeutic INR: Plan: 77-year-old female history of CHF diastolic type, hypertensive heart disease, A. fib on Coumadin, hypertension, CKD stage III Morbid obesity Presenting with left thigh pain x3 to 4 days. Spontaneous Left thigh hematoma Supratherapeutic INR, on chronic Coumadin for A. fib Ambulatory dysfunction CT left thigh: Confirming acute hematoma on left thigh CT abdomen pelvis: No intra-abdominal or retroperitoneal hematoma Vitamin K 10mg given at the ER INR this morning remaining >9 x [address] Vallejo and Dr. Zoila chavira ordered mixing study ordered: pending repeat PT, PTT at 12 noon, 6pm and 12 midnight suspect inhibiting factor, patient goes to [place] every Wed for Chemo- to be verified patient reports taking Coumadin as scheduled pain well controlled Tylenol 1 g p.o. every 8 hours As needed tramadol Orthopedic service consulted PT and OT evaluate CHF, diastolic type Not in exacerbation Continue Lasix 40 mg in a.m. 20 mg in p.m. Spironolactone 12.5 mg daily Potassium 20 mg once daily Atrial fibrillation on Coumadin Continue metoprolol tartrate 25 mg p.o. twice daily Hold Coumadin Hypertension Monitor CKD stage III Creatinine at baseline Hypothyroidism Continue levothyroxine 100 mcg daily Morbid obesity Counseling Urinary incontinence Oxybutynin 30 mg p.o. daily Major depressive disorder Continue Wellbutrin and Lexapro Chronic leg edema, BL Lower Extremity Wounds Follows with wound care center in [place] no signs of infection, monitor Wound Care nurse consulted Melanoma On chemo at [place], scheduled for Wednesday. 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 Admission and Anticipated Discharge Date Admission Date: June 28, 2022 Subjective ff up for L thigh hematoma, highly elevated INR, etc seen resting in bed, comfortable states she feels fine overall L thigh pain is "good" no back pain, abdominal pain, headache, dizziness, nausea/vomiting no bleeding noted no chest pain, palpitations, dizziness no other symptoms Review of Systems Review of Systems: all noted and negative except for above Physical Exam Physical Exam: General- oriented x 3, not in distress, speaks in sentences with no effort or accessory muscle use Eyes- anicteric Neck- no JVD Lungs- clear breath sounds bilaterally, no rales/wheezes Heart- normal rate, regular rhythm; no murmurs Abdomen- normal bowel sounds, nondistended, soft, nontender Extremities- L thigh: (+) hematoma noted, unchanged from yesterday, borders drawn with pen Left lower leg: (+) wound covered with gauze, no signs of surrounding infeciton R Lower leg: (+) small wound, no signs of surrounding infection Neuro- alert, oriented x 3; no gross focal neurologic deficits Skin- warm & dry Results & Data Results & Data ([facility]) Vital Signs (Past 12 Hours) Vital Signs Temp Pulse Pulse Resp BP BP Pulse Ox 06/29/22 07:53 36.9 C 87 19 101/67 91 06/29/22 07:45 87 06/29/22 02:57 36.5 C 67 20 112/71 98 06/28/22 22:39 36.4 C L 65 18 112/73 92 O2 Del Method 06/29/22 07:53 Room Air 06/29/22 07:45 06/29/22 02:57 Room Air 06/28/22 22:39 Room Air all noted and reviewed including below
[2022-06-29 10:28] LABS: Partial Thromboplastin Time 117.2 Seconds (21.0-31.0)
--- NOTE | 2022-06-29 12:32 | Electrocardiogram Report ---
Test Reason : Blood Pressure : / mmHG Vent. Rate : 073 BPM Atrial Rate : 077 BPM P-R Int : 000 ms QRS Dur : 090 ms QT Int : 422 ms P-R-T Axes : 000 000 061 degrees QTc Int : 464 ms Atrial fibrillation Nonspecific ST abnormality Abnormal ECG When compared with ECG of 15-MAR-2022 11:39, Vent. rate has decreased BY 48 BPM Nonspecific T wave abnormality no longer evident in Inferior leads Nonspecific T wave abnormality now evident in Lateral leads Confirmed by Lan Nguyen ([id number]) on 06/29/2022 12:32:17 PM Referred By: REFERRED SELF Confirmed By:Tommy Nguyen
[2022-06-29 12:42] LABS: INR 1.1 (0.9-1.1); Partial Thromboplastin Time 28.1 Seconds (21.0-31.0)
[2022-06-29 13:02] LABS: Prothrombin Time 11.4 Seconds (9.0-12.0)
--- NOTE | 2022-06-29 13:31 | Orthopedic Consultation ---
Date of Consultation June 29, 2022 Assessment & Plan (1) Hematoma of left thigh: CT scan results reviewed with the patient. At this time, we can continue to monitor for left thigh hematoma. With improvement in the patient's INR, the hematoma may resolve on its own over period of time. We discussed possible surgical I&D if she has persistent pain or inability to ambulate. However, her pain seems to be at the lateral aspect of her hip versus the site of the hematoma at the mid thigh. PT/OT Weight-bear as tolerated left lower extremity if pain allows. Thank you for the consultation. We will continue to follow with the patient to ensure her pain is improving. (2) Supratherapeutic INR: 1.1 after vitamin K treatment (3) Acute pain of left thigh: Supervising Physician Co-Signing Physician Notes Patient seen and examined. Agree with ANN MARIE Ulloa's note as above. Patient is resting comfortably, with no obvious distress or significant pain. She reports that her pain is gradually improving and her leg. She is morbidly obese, making her exam rather difficult. She has moderate diffuse ecchymosis in her left hip, thigh, and knee area, but with her morbid obesity, no obvious size difference from her left thigh to her right. Palpation of the deep muscular compartments is very difficult, as is range of motion testing, but no obvious evidence of compartment syndrome. Motor and sensory functions intact distally. No fractures on x-ray or CT scan. CT does show an intramuscular hematoma in the thigh. She denies any trauma. This was like a spontaneous hematoma due to supratherapeutic INR (INR greater than 9.6 on 4 consecutive lab draws over 24 hours, now decreased to 1.1). 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 Overall, I think that any type of surgical intervention would be relatively high risk for her, and I would not pursue this unless absolutely necessary such as with clear evidence of compartment syndrome. I would recommend nonoperative management with rest and ice. I would recommend physical therapy to get her up and mobilized. Orders were placed for these things. I advised her that it can take several months for the hematoma to resorb. She does not require orthopedic follow-up unless her condition significantly worsens. History of Present Illness Reason for Consultation: Left leg pain Attending Physician: Armando Cox MD History of Present Illness This is a patient who has had a 3 to 4-day history of left thigh pain that led to an inability to ambulate over the past 1 to 2 days. She was seen in the emergency room and later admitted with a supratherapeutic INR. A CT scan of the left thigh noted intramuscular hematoma We were for evaluation of the hematoma and the patient's inability to ambulate. Most of the pain is at the patient's lateral left hip. She denies any pain within the thigh or the left knee. She still has not been able to ambulate today secondary to the pain. Allergies Allergy/AdvReac Type Severity Reaction Status Date / Time Penicillins Allergy Intermediate HIVES Verified 06/27/22 16:44 Sulfa (Sulfonamide Allergy Unknown ` Verified 06/27/22 16:44 Antibiotics) aspirin AdvReac Severe BLEEDING Verified 06/27/22 16:44 ULCER Home Medications Medication Instructions Recorded Confirmed Type acetaminophen 500 mg tablet 1,000 mg PO BID PRN Pain 03/15/22 06/27/22 History bupropion HCl 300 mg 24 hr tablet, 300 mg PO DAILY 03/15/22 06/27/22 History extended release escitalopram oxalate 20 mg tablet 20 mg PO DAILY 03/15/22 06/27/22 History furosemide 40 mg tablet 40 mg PO DAILY 03/15/22 06/27/22 History montelukast 10 mg tablet 10 mg PO QPM 03/15/22 06/27/22 History multivitamin 1 tab PO DAILY 03/15/22 06/27/22 History oxybutynin chloride 15 mg 15 mg PO DAILY 03/15/22 06/27/22 History tablet,extended release 24 hr pregabalin 100 mg capsule 100 mg PO BID 03/15/22 06/27/22 History warfarin 5 mg tablet 5 mg PO DIRECTED 03/15/22 06/27/22 History potassium chloride 20 mEq 20 meq PO DAILY #3 tabs 03/19/22 06/27/22 Rx tablet,extended release docusate sodium 100 mg capsule 100 mg PO BID PRN Constipation 06/27/22 06/27/22 History hydrocodone 5 mg-acetaminophen 325 1 tab PO Q6H PRN pain #12 tabs 06/27/22 Rx mg tablet levothyroxine 75 mcg tablet 75 mcg PO DAILY 06/27/22 06/27/22 History metoprolol tartrate 25 mg tablet 25 mg PO BID 06/27/22 06/27/22 History polyethylene glycol 3350 17 gram 17 g PO DAILY PRN Constipation 06/27/22 06/27/22 History oral powder packet (Miralax) spironolactone 25 mg tablet 12.5 mg PO DAILY 06/27/22 06/27/22 History Patient History Medical History Cellulitis Congestive heart failure Major depression, chronic Morbid obesity Neuropathy Osteoarthritis Surgical History Hx of total knee arthroplasty Family History Other No pertinent family history Social History Smoking Status: Former smoker Hx Alcohol Use: No Hx Substance Use: No Preferred Language: Malay Communication Ability: Effective 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 Beliefs That Will Affect Care: None marital status: Current Living Situation: Alone Current Living Situation Comment: friend helps with grocery shopping, takes van to appointments current occupational status: retired Other Information That Helps Us Care for You: No Feels Safe at Home: Yes Safety Concerns: Feels Safe At This Time Assistive Devices: Glasses and Walker Physical Exam Constitutional: WD/WN, vitals as above + morbidly obese; no acute distress Neck: trachea midline Musculoskeletal: Hip: + ecchymosis (Moderate lateral left hip and left thigh) and + joint line tenderness (Some tenderness at the lateral aspect of the hip over the greater trochante); no crepitation with hip ROM Knee: + ecchymosis (Moderate anterior left knee); no joint line tenderness Skin: no rashes, warm and dry Trauma: no evidence of skin trauma Neurologic: normal touch/pain/proprioception Psychiatric: A+Ox3, euthymic affect Speech: normal rate/rhythm/volume of speech Results & Data ([facility]) Vital Signs (Past 12 Hours) Vital Signs Temp Pulse Pulse Resp BP BP Pulse Ox 06/29/22 11:29 36.5 C 83 18 105/71 91 06/29/22 07:53 36.9 C 87 19 101/67 91 06/29/22 07:45 87 06/29/22 02:57 36.5 C 67 20 112/71 98 O2 Del Method 06/29/22 11:29 Room Air 06/29/22 07:53 Room Air 06/29/22 07:45 06/29/22 02:57 Room Air Laboratory Results Laboratory Tests 06/29/22 06/29/22 06/29/22 05:55 05:55 11:57 WBC 9.74 Hgb 9.4 L Hct 28.8 L PT 11.4 INR 1.1 Sodium 138 Potassium 3.2 L Chloride 105 BUN 18 Creatinine 0.59 L Diagnostic Findings Left thigh CT: Intramuscular hematoma of left thigh. The largest measuring 10 cm x 6.7 cm x 5.4 cm.
[2022-06-29] MEDS: FUROSEMIDE 20 MG TAB PO SCH (16:06)
[2022-06-29] MEDS: MONTELUKAST SODIUM 10 MG TABLET PO SCH (20:41)
--- NOTE | 2022-06-29 22:45 | Consultation Report ---
DATE OF SERVICE: 06/29/2022 REASON FOR CONSULTATION: Supratherapeutic INR. 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 Montez at [facility]. The patient also has a history of chronic atrial fibrillation for which she was on Coumadin. She indicates that she developed left thigh pain about 5 days ago leading to difficulty in walking for which she presented to the ED at [facility] on 06/28/2022. On arrival to the ED, she was noted to have significant right thigh swelling due to hematoma and labs demonstrated INR of greater than 9 for which vitamin K 10 mg IV was given. X- ray of the left femur revealed anteromedial soft tissue swelling of the mid to distal thigh with moderate knee joint effusion. CT femur on 06/28/2022 revealed multiple acute intramuscular hematomas of the left vastus intermedius and vastus medialis, which measured up to 10 x 6.[address] abdomen and pelvis also on 06/28/2022 revealed no evidence of retroperitoneal hematoma, but also revealed acute intramuscular hematoma of the left thigh. Despite receiving one dose of vitamin K on arrival to the ED, INR remained persistently elevated at greater than 9 for which she received two more doses of vitamin K. At the time of evaluating the patient, INR was still noted to be elevated at greater than 9.6 with a PT of greater than 90 and PTT of 117. She indicates that she started thyroid medication a couple of weeks ago. Endorses compliance with Coumadin and denies taking extra doses of Coumadin. ALLERGIES: 1. PENICILLIN. 2. SULFONAMIDE ANTIBIOTICS. 3. ASPIRIN. HOME MEDICATIONS: 1. Tylenol 1000 mg p.o. b.i.d. p.r.n. 2. Bupropion 300 mg p.o. daily. 3. Escitalopram 20 mg p.o. daily. 4. Lasix 40 mg p.o. daily. 5. Montelukast 10 mg p.o. daily. 6. Multivitamin one tablet p.o. daily. 7. Oxybutynin 50 mg p.o. daily. 8. Pregabalin 100 mg p.o. b.i.d. 9. Warfarin 5 mg every other day alternating with 2.5 mg every other day of the week. 10. Colace 100 mg p.o. b.i.d. 11. Hydrocodone 5 mg/acetaminophen 325 mg p.o. q.6 hours p.r.n. 12. Levothyroxine 75 mcg p.o. daily. 13. Metoprolol 25 mg p.o. b.i.d. 14. Spironolactone 12.5 mg p.o. daily. PAST MEDICAL HISTORY: 1. Malignant melanoma. 2. Major depression. 3. Morbid obesity. 4. History of congestive heart failure. PAST SURGICAL HISTORY: 1. History of total knee arthroplasty. 2. Left big toe amputation. FAMILY HISTORY: Nonsignificant. SOCIAL HISTORY: Denies smoking, alcohol and illicit drug use. REVIEW OF SYSTEMS: Unremarkable except as noted in the HPI. PHYSICAL EXAMINATION: Significant for left thigh hematoma and left big toe amputation. LABORATORY DATA: CBC on 06/29/2022, white cell count of 9.74, hemoglobin 9.4, hematocrit 28.8, platelet count 277. PT greater than 90, INR greater than 9.6, PTT 117.2. Chemistry: Sodium 137, potassium 3.2, chloride 104, bicarb 28, BUN 17, creatinine 0.59. ASSESSMENT AND PLAN: 1. Supratherapeutic INR. 2. Malignant melanoma. 3. Atrial fibrillation, on chronic anticoagulation with Coumadin. A 77-year-old female with history of malignant melanoma (stage unknown), who is currently on immunotherapy treatment and presented with left thigh hematoma with supratherapeutic INR. Based on her labs, I suspect that supratherapeutic INR is due to warfarin. Given evidence of significant left thigh hematoma of about 10 cm, as well as lack of response to vitamin K so far, I would recommend giving Kcentra. Would also recommend checking mixing study to evaluate for possible inhibitor. Highly suspect that the elevated INR is more likely due to Coumadin rather than inhibitor. If she does not improve with Kcentra, would recommend testing factor X, V, prothrombin and fibrinogen levels to evaluate for common pathway deficiencies that would cause prolongation of both PT and PTT. Thank you for this consult. Hematology will continue following the patient while in the hospital. Please feel free to call if you have any further questions. Job ID: [id number] [facility]
[2022-06-30] MEDS: ACETAMINOPHEN 500 MG TAB PO SCH ×3 (06:02→22:47)
[2022-06-30] MEDS: LEVOTHYROXINE SODIUM 100 MCG TABLET PO SCH (06:02)
[2022-06-30 06:48] LABS: Basophils # (auto) 0.02 K/uL (0-0.2); Basophils % (auto) 0.2 %; Eosinophils # (auto) 0.43 K/uL (0-0.50); Eosinophils % (auto) 5.1 %; Hematocrit (blood only) 28.1 % (34.1-44.9); Immature Granulocytes # (auto) 0.06 K/uL (0.00-0.02); Immature Granulocytes % (auto) 0.7 %; Lymphocytes # (auto) 0.65 K/uL (1.2-3.4); Lymphocytes % (auto) 7.7 %; Mean Corpuscular Hemoglobin 30.6 pg (25.0-34.0); Mean Corpuscular Volume 95.6 fL (80.0-100.0); Mean Platelet Volume 10.8 fL (9.4-12.3); Monocytes # (auto) 0.96 K/uL (0.24-0.82); Monocytes % (auto) 11.4 %; Neutrophils # (auto) 6.33 K/uL (1.4-6.5); Neutrophils % (auto) 74.9 %; Platelet Count 276 K/uL (130-400); RDW Standard Deviation 55.9 fL (36.4-46.3); Red Blood Count 2.94 M/uL (3.93-5.22); White Blood Count 8.45 K/ul (4.8-10.8)
[2022-06-30 07:03] LABS: Partial Thromboplastin Ratio 1.1; Partial Thromboplastin Time 30.2 Seconds (21.0-31.0)
[2022-06-30 07:08] LABS: BUN Creatinine Ratio 26.6 (10-20); Calcium 8.5 mg/dl (8.5-10.1); Creatinine Clr Calc Pharmacy 101.9 ml/min; Est GFR (African American) 101.2 ml/min; Est GFR (Non-African American) 87.3 ml/min; Potassium 3.9 mmol/L (3.5-5.1)
[2022-06-30] MEDS: METOPROLOL TARTRATE 25 MG TAB PO SCH ×2 (08:33→21:04)
[2022-06-30] MEDS: POTASSIUM CHLORIDE CRTAB 20 MEQ TABCR PO SCH ×2 (08:35→21:04)
[2022-06-30] MEDS: OXYBUTYNIN CHLORIDE XL 5 MG TABCR PO SCH (08:35)
[2022-06-30] MEDS: ESCITALOPRAM OXALATE 20 MG TAB PO SCH (08:35)
[2022-06-30] MEDS: buPROPion XL 300 MG TABCR PO SCH (08:35)
[2022-06-30] MEDS: SPIRONOLACTONE 12.5 MG TAB PO SCH (08:35)
[2022-06-30] MEDS ORDERED: MICONAZOLE NITRATE POWDER 43 GM EXT PRN (10:27)
--- NOTE | 2022-06-30 11:11 | Communication Note ---
Date of Service: June 30, 2022 Pt sitting at EOB. States that her leg is feeling much better today. Less pain today. No new complaints. Helped pt get back into bed with nursing staff without difficulty. Orthopedics will sign off at this time. Pt progressively getting better. Can follow up in the office on an as needed basis.
--- NOTE | 2022-06-30 14:57 | Hospitalist Progress Note ---
Date of Service June 30, 2022 Assessment & Plan (1) Hematoma of left thigh: Plan: Spontaneous left thigh hematoma secondary to very high INR of 9.6 and a PTT of 117.2 Hemoglobin dropped from 10 to 9 Appreciate Ortho input and recommendation Clinically much better without any significant symptoms PT and OT evaluate (2) Supratherapeutic INR: Plan: 77-year-old female history of CHF diastolic type, hypertensive heart disease, A. fib on Coumadin, hypertension, CKD stage III Morbid obesity Presenting with left thigh pain x3 to 4 days. Spontaneous Left thigh hematoma Supratherapeutic INR, on chronic Coumadin for A. fib Ambulatory dysfunction CT left thigh: Confirming acute hematoma on left thigh-[address] abdomen pelvis: No intra-abdominal or retroperitoneal hematoma INR was more than 9 on admission and APTT was more than 100 Received intravenous vitamin K and followed by Kcentra administration as the INR was not improving with vitamin K Case discussed with Dr. Burleson made to and also Dr. Dozier Suspect inhibiting factor, patient goes to [place] every Wed for Chemo- to be verified Patient reports taking Coumadin as scheduled CHF, diastolic type Not in exacerbation Continue Lasix 40 mg in a.m. 20 mg in p.m. Spironolactone 12.5 mg daily Potassium 20 mg once daily Cumulative fluid balance is -209 mL Atrial fibrillation on Coumadin Continue metoprolol tartrate 25 mg p.o. twice daily Hold Coumadin for now Likely not to restart Coumadin as the bleeding was a spontaneous Hypertension Monitor CKD stage III Creatinine at baseline Hypothyroidism Continue levothyroxine 100 mcg daily Morbid obesity Counseling Urinary incontinence Oxybutynin 30 mg p.o. daily Major depressive disorder Continue Wellbutrin and Lexapro Chronic leg edema, BL Lower Extremity Wounds Follows with wound care center in [place] no signs of infection, monitor Wound Care nurse consulted Melanoma On chemo at [place], scheduled for Wednesday. DVT prophylaxis Anticoagulation contraindicated due to supratherapeutic INR SCDs contraindicated secondary to bilateral chronic edema PT OT for early ambulation Disposition Pending likely will need inpatient rehab, patient agreeable manager clinical on board Area of aging is involved Admission and Anticipated Discharge Date Admission Date: June 28, 2022 Subjective 06/30/2022 The patient was seen and examined in medical telemetry unit She denies any complaints today and has been feeling a lot better She will be seen by office of aging personnel sometime Review of Systems Review of Systems: All systems reviewed and are unremarkable except as noted below Physical Exam Physical Exam: Lying in bed comfortably Constitutional: well developed, well nourished and + obese; not ill appearing Eyes: PERRL, conjunctivae normal, anicteric sclerae ENMT: external ear and nose normal, oropharynx normal Neck: trachea midline, no thyromegaly Respiratory: no respiratory distress Auscultation: lungs clear to auscultation bilaterally and + diminished lung sounds Cardiovascular: Rate/Rhythm: regular rate and regular rhythm; not tachycardic Heart Sounds: normal S1 and normal S2; no murmur Gastrointestinal (Abdomen): Inspection/Auscultation: normal bowel sounds; abdomen not distended Percussion/Palpation: abdomen soft; abdomen nontender Musculoskeletal: No pain in any of the joints. Left lateral thigh shows bruising but nontender to palpate Neurologic: Alert, awake and oriented x3. No focal sensory and/or motor deficit appreciated Lymphatic: no cervical or axillary lymphadenopathy Results & Data Results & Data ([facility]) Vital Signs (Past 12 Hours) Vital Signs Temp Pulse Pulse Resp BP BP Pulse Ox 06/30/22 13:22 36.4 C L 86 16 123/74 95 06/30/22 08:00 84 06/30/22 06:50 37.1 C 67 18 116/68 92 06/30/22 02:55 36.8 C 68 18 116/67 94 O2 Del Method 06/30/22 13:22 Room Air 06/30/22 08:00 06/30/22 06:50 Room Air 06/30/22 02:55 Room Air Laboratory Results Short CBC 06/30/22 Range/Units 06:15 WBC 8.45 (4.8-10.8) K/ul Hgb 9.0 L (12.0-16.0) g/dl Hct 28.1 L (34.1-44.9) % Plt Count 276 (130-400) K/uL BMP 06/30/22 06:15 Sodium 135 L Potassium 3.9 D Chloride 102 Carbon Dioxide 28 BUN 17 Creatinine 0.64 Glucose 104 H Calcium 8.5 Medications Administered Current Inpatient Medications Acetaminophen (Acetaminophen 500 Mg Tab) 1,000 mg PO Q8H CARLOS ENRIQUE Stop: 07/28/22 22:59 Last Admin: 06/30/22 06:02 Dose: 1,000 mg Bupropion HCl (Bupropion Xl 300 Mg Tabcr) 300 mg PO DAILY CARLOS ENRIQUE Stop: 07/29/22 08:59 Last Admin: 06/30/22 08:35 Dose: 300 mg Escitalopram Oxalate (Escitalopram Oxalate 20 Mg Tab) 20 mg PO DAILY CARLOS ENRIQUE Stop: 07/29/22 08:59 Last Admin: 06/30/22 08:35 Dose: 20 mg Furosemide (Furosemide 20 Mg Tab) 20 mg PO Q24H CARLOS ENRIQUE Stop: 07/29/22 16:59 Last Admin: 06/29/22 16:06 Dose: 20 mg Levothyroxine Sodium (Levothyroxine Sodium 100 Mcg Tablet) 100 mcg PO DAILYBB CARLOS ENRIQUE Stop: 07/29/22 06:29 Last Admin: 06/30/22 06:02 Dose: 100 mcg Metoprolol Tartrate (Metoprolol Tartrate 25 Mg Tab) 25 mg PO BID CARLOS ENRIQUE Stop: 07/28/22 20:59 Last Admin: 06/30/22 08:33 Dose: 25 mg Miconazole Nitrate (Miconazole Nitrate Powder 43 Gm) 1 appln EXT PRN PRN PRN Reason: Affected Skin Folds Stop: 07/30/22 10:26 Montelukast Sodium (Montelukast Sodium 10 Mg Tablet) 10 mg PO QPM CARLOS ENRIQUE Stop: 07/28/22 20:59 Last Admin: 06/29/22 20:41 Dose: 10 mg Morphine Sulfate (Morphine Sulfate 4 Mg/Ml 1 Ml Carp\Vial) 4 mg IV Q4H PRN PRN Reason: Pain Stop: 07/13/22 03:04 Oxybutynin Chloride (Oxybutynin Chloride Xl 5 Mg Tabcr) 15 mg PO DAILY CARLOS ENRIQUE Stop: 07/29/22 08:59 Last Admin: 06/30/22 08:35 Dose: 15 mg Oxycodone HCl (Oxycodone Hcl Ir 5 Mg Tab (Immediate Release)) 5 - 10 mg PO QID PRN PRN Reason: Pain Stop: 07/13/22 03:04 Last Admin: 06/29/22 11:17 Dose: 10 mg Potassium Chloride (Potassium Chloride Crtab 20 Meq Tabcr) 40 meq PO BID CARLOS ENRIQUE Stop: 07/29/22 08:59 Last Admin: 06/30/22 08:35 Dose: 40 meq Pregabalin (Pregabalin 100 Mg Cap) 100 mg PO BID CARLOS ENRIQUE Stop: 07/30/22 20:59 Spironolactone (Spironolactone 12.5 Mg Tab) 12.5 mg PO DAILY CARLOS ENRIQUE Stop: 07/29/22 08:59 Last Admin: 06/30/22 08:35 Dose: 12.5 mg
[2022-06-30] MEDS: FUROSEMIDE 20 MG TAB PO SCH (17:19)
[2022-06-30] MEDS: PREGABALIN 100 MG CAP PO SCH (21:04)
[2022-06-30] MEDS: MONTELUKAST SODIUM 10 MG TABLET PO SCH (21:04)
[2022-07-01] MEDS: LEVOTHYROXINE SODIUM 100 MCG TABLET PO SCH (05:58)
[2022-07-01] MEDS: ACETAMINOPHEN 500 MG TAB PO SCH ×3 (06:00→20:00)
[2022-07-01 06:18] LABS: Basophils # (auto) 0.01 K/uL (0-0.2); Basophils % (auto) 0.2 %; Eosinophils # (auto) 0.29 K/uL (0-0.50); Eosinophils % (auto) 4.8 %; Hematocrit (blood only) 27.7 % (34.1-44.9); Hemoglobin 8.9 g/dl (12.0-16.0); Immature Granulocytes # (auto) 0.04 K/uL (0.00-0.02); Immature Granulocytes % (auto) 0.7 %; Lymphocytes # (auto) 0.56 K/uL (1.2-3.4); Lymphocytes % (auto) 9.2 %; Mean Corpuscular Hemoglobin 30.7 pg (25.0-34.0); Mean Corpuscular Hgb Conc 32.1 g/dL (32.0-36.0); Mean Corpuscular Volume 95.5 fL (80.0-100.0); Mean Platelet Volume 10.7 fL (9.4-12.3); Monocytes # (auto) 0.74 K/uL (0.24-0.82); Monocytes % (auto) 12.2 %; Neutrophils # (auto) 4.42 K/uL (1.4-6.5); Neutrophils % (auto) 72.9 %; Nucleated RBC # (auto) 0.02 K/uL (0-0); Nucleated RBC % (auto) 0.3 %; Platelet Count 279 K/uL (130-400); RDW Coefficient of Variation 16.5 % (11.5-14.5); RDW Standard Deviation 57.5 fL (36.4-46.3); White Blood Count 6.06 K/ul (4.8-10.8)
[2022-07-01 06:32] LABS: Partial Thromboplastin Ratio 1.1; Partial Thromboplastin Time 30.5 Seconds (21.0-31.0); Prothrombin Time 11.1 Seconds (9.0-12.0)
[2022-07-01 06:46] LABS: BUN Creatinine Ratio 21.7 (10-20); Calcium 8.5 mg/dl (8.5-10.1); Creatinine Clr Calc Pharmacy 109.4 ml/min; Est GFR (African American) 103.3 ml/min; Est GFR (Non-African American) 89.2 ml/min; Potassium 3.9 mmol/L (3.5-5.1)
[2022-07-01] MEDS: SPIRONOLACTONE 12.5 MG TAB PO SCH (08:07)
[2022-07-01] MEDS: METOPROLOL TARTRATE 25 MG TAB PO SCH ×2 (08:07→20:00)
[2022-07-01] MEDS: OXYBUTYNIN CHLORIDE XL 5 MG TABCR PO SCH (08:07)
[2022-07-01] MEDS: ESCITALOPRAM OXALATE 20 MG TAB PO SCH (08:08)
[2022-07-01] MEDS: buPROPion XL 300 MG TABCR PO SCH (08:08)
[2022-07-01] MEDS: POTASSIUM CHLORIDE CRTAB 20 MEQ TABCR PO SCH ×2 (08:10→20:01)
[2022-07-01] MEDS: PREGABALIN 100 MG CAP PO SCH ×2 (08:10→19:59)
[2022-07-01] MEDS: oxyCODONE HCL IR 5 MG TAB (IMMEDIATE RELEASE) PO PRN (10:35)
--- NOTE | 2022-07-01 14:55 | Hospitalist Progress Note ---
Date of Service July 01, 2022 Assessment & Plan (1) Hematoma of left thigh: Plan: Spontaneous left thigh hematoma secondary to very high INR of 9.6 and a PTT of 117.2 Hemoglobin dropped from 10 to 9 Appreciate Ortho input and recommendation Clinically much better without any significant symptoms PT and OT evaluate-recommended rehab and the patient has been waiting for placement Hemoglobin remained stable and the bruising has been spreading It will take at least 6 to 8 weeks before the skin gets its color (2) Supratherapeutic INR: Plan: 77-year-old female history of CHF diastolic type, hypertensive heart disease, A. fib on Coumadin, hypertension, CKD stage III Morbid obesity Presenting with left thigh pain x3 to 4 days. Spontaneous Left thigh hematoma Supratherapeutic INR, on chronic Coumadin for A. fib Ambulatory dysfunction CT left thigh: Confirming acute hematoma on left thigh-10 x [address] abdomen pelvis: No intra-abdominal or retroperitoneal hematoma INR was more than 9 on admission and APTT was more than 100 Received intravenous vitamin K and followed by Kcentra administration as the INR was not improving with vitamin K Case discussed with Dr. Burleson made to and also Dr. Dozier Suspect inhibiting factor, patient goes to [place] every Wed for Chemo- to be verified Patient reports taking Coumadin as scheduled She is off Coumadin and INR is 1.0-likely not to restart Coumadin CHF, diastolic type Not in exacerbation Continue Lasix 40 mg in a.m. 20 mg in p.m. Spironolactone 12.5 mg daily Potassium 20 mg once daily Cumulative fluid balance is -209 mL Atrial fibrillation on Coumadin Continue metoprolol tartrate 25 mg p.o. twice daily Hold Coumadin for now Likely not to restart Coumadin as the bleeding was a spontaneous Hypertension Monitor CKD stage III Creatinine at baseline Hypothyroidism Continue levothyroxine 100 mcg daily Morbid obesity Counseling Urinary incontinence Oxybutynin 30 mg p.o. daily Major depressive disorder Continue Wellbutrin and Lexapro Chronic leg edema, BL Lower Extremity Wounds Follows with wound care center in [place] no signs of infection, monitor Wound Care nurse consulted Melanoma On chemo at [place], scheduled for Wednesday. DVT prophylaxis Anticoagulation contraindicated due to supratherapeutic INR SCDs contraindicated secondary to bilateral chronic edema PT OT for early ambulation-Will need rehab Disposition Pending likely will need inpatient rehab, patient agreeable cadd manager on board Area of aging is involved Admission and Anticipated Discharge Date Admission Date: June 28, 2022 Subjective 06/30/2022 The patient was seen and examined in medical telemetry unit She denies any complaints today and has been feeling a lot better She will be seen by office of aging personnel sometime 07/01/2022 The patient was seen and examined in medical telemetry unit She is out of bed 1 a chair Complains minimal pain in left lower extremity Denies any other significant symptoms Review of Systems Review of Systems: All systems reviewed and are unremarkable except as noted below Physical Exam Physical Exam: Lying in bed comfortably Constitutional: well developed, well nourished and + obese; not ill appearing Eyes: PERRL, conjunctivae normal, anicteric sclerae ENMT: external ear and nose normal, oropharynx normal Neck: trachea midline, no thyromegaly Respiratory: no respiratory distress Auscultation: lungs clear to auscultation bilaterally and + diminished lung sounds Cardiovascular: Rate/Rhythm: regular rate and regular rhythm; not tachycardic Heart Sounds: normal S1 and normal S2; no murmur Gastrointestinal (Abdomen): Inspection/Auscultation: normal bowel sounds; abdomen not distended Percussion/Palpation: abdomen soft; abdomen nontender Musculoskeletal: Extremities: + extremities abnormal to inspection (Left lower extremity has extensive bruising especially the upper lateral pa) Neurologic: normal touch/pain/proprioception and moves all extremities Psychiatric: A+Ox3, euthymic affect Lymphatic: no cervical or axillary lymphadenopathy Results & Data Results & Data ([facility]) Vital Signs (Past 12 Hours) Vital Signs Temp Pulse Pulse Resp BP Pulse Ox O2 Del Method 07/01/22 11:13 36.4 C L 89 18 113/75 90 Room Air 07/01/22 10:38 Room Air 07/01/22 08:00 91 H 07/01/22 06:28 36.9 C 86 20 127/76 93 Room Air 07/01/22 03:14 36.5 C 90 20 132/77 92 Room Air Laboratory Results Short CBC 07/01/22 Range/Units 05:52 WBC 6.06 (4.8-10.8) K/ul Hgb 8.9 L (12.0-16.0) g/dl Hct 27.7 L (34.1-44.9) % Plt Count 279 (130-400) K/uL BMP 07/01/22 05:52 Sodium 135 L Potassium 3.9 Chloride 101 Carbon Dioxide 28 BUN 13 Creatinine 0.60 Glucose 86 Calcium 8.5 Medications Administered Current Inpatient Medications Acetaminophen (Acetaminophen 500 Mg Tab) 1,000 mg PO Q8H CARLOS ENRIQUE Stop: 07/28/22 22:59 Last Admin: 07/01/22 06:00 Dose: Not Given Bupropion HCl (Bupropion Xl 300 Mg Tabcr) 300 mg PO DAILY CARLOS ENRIQUE Stop: 07/29/22 08:59 Last Admin: 07/01/22 08:08 Dose: 300 mg Escitalopram Oxalate (Escitalopram Oxalate 20 Mg Tab) 20 mg PO DAILY CARLOS ENRIQUE Stop: 07/29/22 08:59 Last Admin: 07/01/22 08:08 Dose: 20 mg Furosemide (Furosemide 20 Mg Tab) 20 mg PO Q24H CARLOS ENRIQUE Stop: 07/29/22 16:59 Last Admin: 06/30/22 17:19 Dose: 20 mg Levothyroxine Sodium (Levothyroxine Sodium 100 Mcg Tablet) 100 mcg PO DAILYBB CARLOS ENRIQUE Stop: 07/29/22 06:29 Last Admin: 07/01/22 05:58 Dose: 100 mcg Metoprolol Tartrate (Metoprolol Tartrate 25 Mg Tab) 25 mg PO BID CARLOS ENRIQUE Stop: 07/28/22 20:59 Last Admin: 07/01/22 08:07 Dose: 25 mg Miconazole Nitrate (Miconazole Nitrate Powder 43 Gm) 1 appln EXT PRN PRN PRN Reason: Affected Skin Folds Stop: 07/30/22 10:26 Montelukast Sodium (Montelukast Sodium 10 Mg Tablet) 10 mg PO QPM CARLOS ENRIQUE Stop: 07/28/22 20:59 Last Admin: 06/30/22 21:04 Dose: 10 mg Morphine Sulfate (Morphine Sulfate 4 Mg/Ml 1 Ml Carp\Vial) 4 mg IV Q4H PRN PRN Reason: Pain Stop: 07/13/22 03:04 Last Admin: 07/01/22 11:27 Dose: 4 mg Oxybutynin Chloride (Oxybutynin Chloride Xl 5 Mg Tabcr) 15 mg PO DAILY CARLOS ENRIQUE Stop: 07/29/22 08:59 Last Admin: 07/01/22 08:07 Dose: 15 mg Oxycodone HCl (Oxycodone Hcl Ir 5 Mg Tab (Immediate Release)) 5 - 10 mg PO QID PRN PRN Reason: Pain Stop: 07/13/22 03:04 Last Admin: 07/01/22 10:35 Dose: 10 mg Potassium Chloride (Potassium Chloride Crtab 20 Meq Tabcr) 40 meq PO BID CARLOS ENRIQUE Stop: 07/29/22 08:59 Last Admin: 07/01/22 08:10 Dose: Not Given Pregabalin (Pregabalin 100 Mg Cap) 100 mg PO BID CARLOS ENRIQUE Stop: 07/30/22 20:59 Last Admin: 07/01/22 08:10 Dose: 100 mg Spironolactone (Spironolactone 12.5 Mg Tab) 12.5 mg PO DAILY CARLOS ENRIQUE Stop: 07/29/22 08:59 Last Admin: 07/01/22 08:07 Dose: 12.5 mg
[2022-07-01] MEDS: FUROSEMIDE 20 MG TAB PO SCH (17:00)
[2022-07-01] MEDS: MONTELUKAST SODIUM 10 MG TABLET PO SCH (20:00)
[2022-07-02] MEDS: LEVOTHYROXINE SODIUM 100 MCG TABLET PO SCH (05:42)
[2022-07-02 07:46] LABS: Basophils # (auto) 0.02 K/uL (0-0.2); Basophils % (auto) 0.4 %; Eosinophils # (auto) 0.38 K/uL (0-0.50); Eosinophils % (auto) 6.7 %; Hematocrit (blood only) 27.3 % (34.1-44.9); Hemoglobin 8.9 g/dl (12.0-16.0); Immature Granulocytes # (auto) 0.06 K/uL (0.00-0.02); Immature Granulocytes % (auto) 1.1 %; Lymphocytes # (auto) 0.55 K/uL (1.2-3.4); Lymphocytes % (auto) 9.7 %; Mean Corpuscular Hemoglobin 31.1 pg (25.0-34.0); Mean Corpuscular Hgb Conc 32.6 g/dL (32.0-36.0); Mean Corpuscular Volume 95.5 fL (80.0-100.0); Mean Platelet Volume 10.5 fL (9.4-12.3); Monocytes # (auto) 0.68 K/uL (0.24-0.82); Neutrophils # (auto) 3.97 K/uL (1.4-6.5); Neutrophils % (auto) 70.1 %; Nucleated RBC # (auto) 0.02 K/uL (0-0); Nucleated RBC % (auto) 0.4 %; Platelet Count 294 K/uL (130-400); RDW Coefficient of Variation 17.2 % (11.5-14.5); RDW Standard Deviation 57.6 fL (36.4-46.3); Red Blood Count 2.86 M/uL (3.93-5.22); White Blood Count 5.66 K/ul (4.8-10.8)
[2022-07-02 08:01] LABS: INR 1.1 (0.9-1.1); Partial Thromboplastin Ratio 1.1; Partial Thromboplastin Time 29.3 Seconds (21.0-31.0); Prothrombin Time 11.4 Seconds (9.0-12.0)
[2022-07-02] MEDS: ESCITALOPRAM OXALATE 20 MG TAB PO SCH (08:31)
[2022-07-02] MEDS: buPROPion XL 300 MG TABCR PO SCH (08:31)
[2022-07-02] MEDS: SPIRONOLACTONE 12.5 MG TAB PO SCH (08:31)
[2022-07-02] MEDS: OXYBUTYNIN CHLORIDE XL 5 MG TABCR PO SCH (08:31)
[2022-07-02] MEDS: METOPROLOL TARTRATE 25 MG TAB PO SCH (08:31)
[2022-07-02] MEDS: ACETAMINOPHEN 500 MG TAB PO SCH (08:32)
[2022-07-02] MEDS: oxyCODONE HCL IR 5 MG TAB (IMMEDIATE RELEASE) PO PRN (08:36)
[2022-07-02] MEDS: PREGABALIN 100 MG CAP PO SCH (08:36)
[2022-07-02] MEDS: POTASSIUM CHLORIDE CRTAB 20 MEQ TABCR PO SCH (08:40)
[2022-07-02 08:48] LABS: BUN Creatinine Ratio 23.9 (10-20); Calcium 8.9 mg/dl (8.5-10.1); Est GFR (African American) 99.7 ml/min; Potassium 3.8 mmol/L (3.5-5.1)
[2022-07-02] MEDS ORDERED: DOCUSATE SODIUM 100 MG CAP PO SCH (09:00)
--- NOTE | 2022-07-02 12:40 | Hospitalist Progress Note ---
Date of Service July 02, 2022 Assessment & Plan (1) Hematoma of left thigh: Plan: Spontaneous left thigh hematoma secondary to very high INR of 9.6 and a PTT of 117.2 Hemoglobin dropped from 10 to 9 Appreciate Ortho input and recommendation Clinically much better without any significant symptoms PT and OT evaluate-recommended rehab and the patient has been waiting for placement Hemoglobin remained stable and the bruising has been spreading It will take at least 6 to 8 weeks before the skin gets its color Minimal pain otherwise stable Will be discharged to [facility] this afternoon (2) Supratherapeutic INR: Plan: 77-year-old female history of CHF diastolic type, hypertensive heart disease, A. fib on Coumadin, hypertension, CKD stage III Morbid obesity Presenting with left thigh pain x3 to 4 days. Spontaneous Left thigh hematoma Supratherapeutic INR, on chronic Coumadin for A. fib Ambulatory dysfunction CT left thigh: Confirming acute hematoma on left thigh-10 x [address] abdomen pelvis: No intra-abdominal or retroperitoneal hematoma INR was more than 9 on admission and APTT was more than 100 Received intravenous vitamin K and followed by [facility] administration as the INR was not improving with vitamin K Case discussed with Dr. Burleson made to and also Dr. Dozier Suspect inhibiting factor, patient goes to [place] every Wed for Chemo- to be verified Patient reports taking Coumadin as scheduled She is off Coumadin and INR is 1.0-likely not to restart Coumadin CHF, diastolic type Not in exacerbation Continue Lasix 40 mg in a.m. 20 mg in p.m. Spironolactone 12.5 mg daily Potassium 20 mg once daily Cumulative fluid balance is -209 mL No signs and or symptoms of fluid overload Atrial fibrillation on Coumadin Continue metoprolol tartrate 25 mg p.o. twice daily Hold Coumadin for now Likely not to restart Coumadin as the bleeding was a spontaneous Rate remains controlled-likely not to restart Coumadin because of a spontaneous hematoma Hypertension Monitor CKD stage III Creatinine at baseline Hypothyroidism Continue levothyroxine 100 mcg daily Morbid obesity Counseling Urinary incontinence Oxybutynin 30 mg p.o. daily Major depressive disorder Continue Wellbutrin and Lexapro Chronic leg edema, BL Lower Extremity Wounds Follows with wound care center in [place] no signs of infection, monitor Wound Care nurse consulted Melanoma On chemo at [place], scheduled for Wednesday. DVT prophylaxis Anticoagulation contraindicated due to supratherapeutic INR SCDs contraindicated secondary to bilateral chronic edema PT OT for early ambulation-Will need rehab Disposition Pending likely will need inpatient rehab, patient agreeable manager army on board Area of aging is involved Will be discharged to [facility] this afternoon Admission and Anticipated Discharge Date Admission Date: June 28, 2022 Subjective 06/30/2022 The patient was seen and examined in medical telemetry unit She denies any complaints today and has been feeling a lot better She will be seen by office of aging personnel sometime 07/01/2022 The patient was seen and examined in medical telemetry unit She is out of bed 1 a chair Complains minimal pain in left lower extremity Denies any other significant symptoms 07/02/2022 The patient was seen and examined in medical telemetry unit She has been complaining of some pain in the left lateral thigh area Denies any other symptoms Review of Systems Review of Systems: All systems reviewed and are unremarkable except as noted below Physical Exam Physical Exam: Lying in bed comfortably Constitutional: well developed, well nourished and + obese; not ill appearing Eyes: PERRL, conjunctivae normal, anicteric sclerae ENMT: external ear and nose normal, oropharynx normal Neck: trachea midline, no thyromegaly Respiratory: no respiratory distress Auscultation: lungs clear to auscultation bilaterally and + diminished lung sounds Cardiovascular: Rate/Rhythm: regular rate and regular rhythm; not tachycardic Heart Sounds: normal S1 and normal S2; no murmur Gastrointestinal (Abdomen): Inspection/Auscultation: normal bowel sounds; abdomen not distended Percussion/Palpation: abdomen soft; abdomen nontender Musculoskeletal: Extremities: + extremities abnormal to inspection (Left lower extremity has extensive bruising especially the upper lateral pa) Skin: Extensive bruising involving the left lateral upper thigh and knee area Neurologic: normal touch/pain/proprioception and moves all extremities Psychiatric: A+Ox3, euthymic affect Lymphatic: no cervical or axillary lymphadenopathy Results & Data Results & Data ([facility]) Vital Signs (Past 12 Hours) Vital Signs Temp Pulse Pulse Resp BP BP Pulse Ox 07/02/22 12:21 36.7 C 86 16 90/63 L 106/64 90 07/02/22 08:04 36.7 C 86 16 106/64 90 07/02/22 07:37 90 07/02/22 06:32 36.5 C 79 20 114/75 96 07/02/22 03:35 36.7 C 83 20 90/63 L 92 O2 Del Method 07/02/22 12:21 07/02/22 08:04 Room Air 07/02/22 07:37 07/02/22 06:32 Room Air 07/02/22 03:35 Room Air Laboratory Results Short CBC 07/02/22 Range/Units 07:00 WBC 5.66 (4.8-10.8) K/ul Hgb 8.9 L (12.0-16.0) g/dl Hct 27.3 L (34.1-44.9) % Plt Count 294 (130-400) K/uL BMP 07/02/22 07:00 Sodium 135 L Potassium 3.8 Chloride 99 Carbon Dioxide 30 BUN 16 Creatinine 0.67 Glucose 88 Calcium 8.9 Medications Administered Current Inpatient Medications Acetaminophen (Acetaminophen 500 Mg Tab) 1,000 mg PO Q8H CARLOS ENRIQUE Stop: 07/28/22 22:59 Last Admin: 07/02/22 08:32 Dose: 1,000 mg Bupropion HCl (Bupropion Xl 300 Mg Tabcr) 300 mg PO DAILY CARLOS ENRIQUE Stop: 07/29/22 08:59 Last Admin: 07/02/22 08:31 Dose: 300 mg Docusate Sodium (Docusate Sodium 100 Mg Cap) 100 mg PO BID CARLOS ENRIQUE Stop: 08/01/22 08:59 Last Admin: 07/02/22 08:36 Dose: 100 mg Escitalopram Oxalate (Escitalopram Oxalate 20 Mg Tab) 20 mg PO DAILY CARLOS ENRIQUE Stop: 07/29/22 08:59 Last Admin: 07/02/22 08:31 Dose: 20 mg Furosemide (Furosemide 20 Mg Tab) 20 mg PO Q24H CARLOS ENRIQUE Stop: 07/29/22 16:59 Last Admin: 07/01/22 17:00 Dose: 20 mg Levothyroxine Sodium (Levothyroxine Sodium 100 Mcg Tablet) 100 mcg PO DAILYBB CARLOS ENRIQUE Stop: 07/29/22 06:29 Last Admin: 07/02/22 05:42 Dose: 100 mcg Metoprolol Tartrate (Metoprolol Tartrate 25 Mg Tab) 25 mg PO BID CARLOS ENRIQUE Stop: 07/28/22 20:59 Last Admin: 07/02/22 08:31 Dose: 25 mg Miconazole Nitrate (Miconazole Nitrate Powder 43 Gm) 1 appln EXT PRN PRN PRN Reason: Affected Skin Folds Stop: 07/30/22 10:26 Montelukast Sodium (Montelukast Sodium 10 Mg Tablet) 10 mg PO QPM CARLOS ENRIQUE Stop: 07/28/22 20:59 Last Admin: 07/01/22 20:00 Dose: 10 mg Morphine Sulfate (Morphine Sulfate 4 Mg/Ml 1 Ml Carp\Vial) 4 mg IV Q4H PRN PRN Reason: Pain Stop: 07/13/22 03:04 Last Admin: 07/01/22 11:27 Dose: 4 mg Oxybutynin Chloride (Oxybutynin Chloride Xl 5 Mg Tabcr) 15 mg PO DAILY CARLOS ENRIQUE Stop: 07/29/22 08:59 Last Admin: 07/02/22 08:31 Dose: 15 mg Oxycodone HCl (Oxycodone Hcl Ir 5 Mg Tab (Immediate Release)) 5 - 10 mg PO QID PRN PRN Reason: Pain Stop: 07/13/22 03:04 Last Admin: 07/02/22 08:36 Dose: 10 mg Potassium Chloride (Potassium Chloride Crtab 20 Meq Tabcr) 40 meq PO BID CARLOS ENRIQUE Stop: 07/29/22 08:59 Last Admin: 07/02/22 08:40 Dose: Not Given Pregabalin (Pregabalin 100 Mg Cap) 100 mg PO BID CARLOS ENRIQUE Stop: 07/30/22 20:59 Last Admin: 07/02/22 08:36 Dose: 100 mg Spironolactone (Spironolactone 12.5 Mg Tab) 12.5 mg PO DAILY CARLOS ENRIQUE Stop: 07/29/22 08:59 Last Admin: 07/02/22 08:31 Dose: 12.5 mg
--- NOTE | 2022-07-03 07:50 | Discharge Summary ---
Date of Service July 02, 2022 Admission HPI Per Admitting Provider 77-year-old female history of CHF diastolic type, hypertensive heart disease, A. fib on Coumadin, hypertension, CKD stage III Morbid obesity Presenting with left thigh pain x3 to 4 days. Patient was doing fine until about 3 to 4 days prior to admission when she started to have left thigh pain and noticed bruising on the left side. The pain progressed to the point that she had difficulty ambulating hence presented to the ER yesterday for evaluation. She denies any history of falls, trauma to the left knee. Patient was advised to stay for admission for left thigh hematoma and ambulatory dysfunction but patient declined and requested to be discharged home. At home, patient still had difficulty with ambulating and was having persistent pain of the left thigh. Denies abdominal pain, back pain, headache, dizziness, chest pain, palpitations, shortness of breath. Today at the ER, patient found to have an INR of more than 9, vitamin K 10 mg IV given. Hospice consulted for admission. On exam, patient seen resting up in bed, comfortable, watching TV, not in distress. Reports moderate pain on the left knee which was resolved with IV Tylenol given earlier in the ER. Denies fevers or chills No other new symptoms. Admission Exam Per Admitting Provider Physical Exam: General- oriented x 3, not in distress, speaks in sentences with no effort or accessory muscle use Morbidly obese Head- atraumatic Eyes- PERRL, EOMI, anicteric ENT- oropharynx clear Neck- supple, no JVD, no adenopathy, no thyromegaly; carotids +2/2, no bruits appreciated Lungs- clear to auscultation bilaterally, no rales/wheezes Heart- normal rate, regular rhythm; no murmur, no gallop, no rub appreciated Abdomen- normal bowel sounds, nondistended, soft, nontender, no masses or hepatosplenomegaly Extremities- Positive hematoma on the left anterior thigh, medial aspect, distal aspect Positive wrapping on both lower extremities, no bleeding noted no pretibial edema, no calf tenderness; peripheral pulses intact Neuro- alert, oriented x 3; CN 2-12 grossly intact; motor 5/5 bilaterally;sensation 100% on all extremities; no other gross focal neurologic deficits Skin- warm & dry Principal Diagnosis Spontaneous left thigh hematoma, supratherapeutic INR-corrected, atrial fibrillation, diastolic CHF, hypertension, melanoma on chemotherapy. Discharge Data Allergies Allergy/AdvReac Type Severity Reaction Status Date / Time Penicillins Allergy Intermediate HIVES Verified 06/27/22 16:44 Sulfa (Sulfonamide Allergy Unknown ` Verified 06/27/22 16:44 Antibiotics) aspirin AdvReac Severe BLEEDING Verified 06/27/22 16:44 [facility] Consultations 06/28/22 16:41 ED Decision to Admit Stat 06/28/22 16:59 Consult Orthopedic Surgery Routine 06/29/22 09:13 Consult Hematology Stat Ordered Studies 06/28/22 16:59 CT Abd and Pelvis [CT abd pelvis wo con] Stat CT femur LT wo con Stat Hospital Course (1) Hematoma of left thigh: Spontaneous left thigh hematoma secondary to very high INR of 9.6 and a PTT of 117.2 Hemoglobin dropped from 10 to 9 Appreciate Ortho input and recommendation Clinically much better without any significant symptoms PT and OT evaluate-recommended rehab and the patient has been waiting for placement Hemoglobin remained stable and the bruising has been spreading It will take at least 6 to 8 weeks before the skin gets its color Minimal pain otherwise stable Will be discharged to [facility] this afternoon (2) Supratherapeutic INR: 77-year-old female history of CHF diastolic type, hypertensive heart disease, A. fib on Coumadin, hypertension, CKD stage III Morbid obesity Presenting with left thigh pain x3 to 4 days. Spontaneous Left thigh hematoma Supratherapeutic INR, on chronic Coumadin for A. fib Ambulatory dysfunction CT left thigh: Confirming acute hematoma on left thigh-[address] abdomen pelvis: No intra-abdominal or retroperitoneal hematoma INR was more than 9 on admission and APTT was more than 100 Received intravenous vitamin K and followed by entra administration as the INR was not improving with vitamin K Case discussed with Dr. Burleson made to and also Dr. Dozier Suspect inhibiting factor, patient goes to [facility] every Fri for Chemo- to be verified Patient reports taking Coumadin as scheduled She is off Coumadin and INR is 1.0-likely not to restart Coumadin CHF, diastolic type Not in exacerbation Continue Lasix 40 mg in a.m. 20 mg in p.m. Spironolactone 12.5 mg daily Potassium 20 mg once daily Cumulative fluid balance is -209 mL No signs and or symptoms of fluid overload Atrial fibrillation on Coumadin Continue metoprolol tartrate 25 mg p.o. twice daily Hold Coumadin for now Likely not to restart Coumadin as the bleeding was a spontaneous Rate remains controlled-likely not to restart Coumadin because of a spontaneous hematoma Hypertension Monitor CKD stage III Creatinine at baseline Hypothyroidism Continue levothyroxine 100 mcg daily Morbid obesity Counseling Urinary incontinence Oxybutynin 30 mg p.o. daily Major depressive disorder Continue Wellbutrin and Lexapro Chronic leg edema, BL Lower Extremity Wounds Follows with wound care center in [place] no signs of infection, monitor Wound Care nurse consulted Melanoma On chemo at [facility], scheduled for Wednesday. 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 Condition on Discharge: Fair Activity: Resume your previous activity Non-emergency contact: Primary Care Provider Call non-emergency contact if: you have any medication questions and your symptoms worsen Follow-up/Referrals: Shanice Coles PA-C [Physician Embedder] - (Date & Time 07/21/2022 12:30 PM Provider [facility] Medardo Montez MD [Outside Practitioners] - (Please call Dr Montez's office when discharged from [facility] for a follow up appointment.) Brigette Moser, [Primary Care Provider] - (Please make an appointment with your primary care provider within 7 days following discharge from the facility) Diet: Heart Healthy Addtl Attending Provider Instructions: Please take precautions to avoid fall Continue with PT and OT Will restart your Coumadin at 5 mg daily and will have regular checkup the coagulation clinic to maintain the INR in therapeutic range of 2-3 Please take less of narcotic pain medication to avoid constipation, confusion and addiction Please give appointment with your healthcare provider Pending Studies at Discharge: No Stand-Alone Forms: My [facility] Skilled Items Patient informed of condition?: Yes DNR: Yes Discharge Level of Care: Skilled Communicable Disease: No Discharge Prognosis: Stable Lines: None Urinary Catheter: No Medications and DC Order Prescriptions: New levothyroxine [Synthroid] 100 mcg Tablet 100 mcg PO DAILYBB 30 Days Qty: 30 0RF Continued furosemide 40 mg tablet 40 mg PO DAILY Rx Instructions: patient says she takes, none filled since 07/22/[address] jacob. oxybutynin chloride 15 mg tablet extended release 24 hr 15 mg PO DAILY montelukast 10 mg tablet 10 mg PO QPM escitalopram oxalate 20 mg tablet 20 mg PO DAILY bupropion HCl 300 mg tablet extended release 24 hr 300 mg PO DAILY pregabalin 100 mg capsule 100 mg PO BID multivitamin Tablet 1 tab PO DAILY acetaminophen 500 mg Tablet 1,000 mg PO BID PRN (Reason: Pain) warfarin 5 mg Tablet 5 mg PO DIRECTED Rx Instructions: As directed by anticoagulation clinic potassium chloride 20 mEq tablet extended release 20 meq PO DAILY Qty: 3 0RF docusate sodium 100 mg Capsule 100 mg PO BID PRN (Reason: Constipation) polyethylene glycol 3350 [Miralax] 17 gram Powder In Packet 17 g PO DAILY PRN (Reason: Constipation) spironolactone 25 mg tablet 12.5 mg PO DAILY metoprolol tartrate 25 mg tablet 25 mg PO BID Discontinued hydrocodone-acetaminophen 5-325 mg tablet 1 tab PO Q6H PRN (Reason: pain) Qty: 12 0RF Rx Instructions: initial script levothyroxine 75 mcg tablet 75 mcg PO DAILY Discharge Orders: Discharge Order (Routine); Ordered 07/02/22 Ordered By: Tae Keith Admission Data Admit Date/Time: 06/28/22 16:59 Attending Provider: Tae Keith Admit Provider: Armando Cox Primary Care Provider: Brigette Moser Other Providers: Lan Díaz ; Ashley Dozier ; Armando Cox Other Interventions: Discharge Summary Assessment (RN) Last Done: 07/02/22 12:21
== END 2022-07-02 14:53 | DRG 605 ==
LOC: ED 13:12 → 2N 16:59 → SUATTDRO 16:59 → 2N 19:30
DX: R32 Unspecified urinary incontinence; E03.9 Hypothyroidism, unspecified; Z88.2 Allergy status to sulfonamides; Z87.891 Personal history of nicotine dependence; Z88.6 Allergy status to analgesic agent; S70.12XA Contusion of left thigh, initial encounter; C43.9 Malignant melanoma of skin, unspecified; R60.0 Localized edema; Z68.43 Body mass index [BMI] 50.0-59.9, adult; Z79.890 Hormone replacement therapy; F32.9 Major depressive disorder, single episode, unspecified; Z88.0 Allergy status to penicillin; Z79.01 Long term (current) use of anticoagulants; X58.XXXA Exposure to other specified factors, initial encounter; N18.30 Chronic kidney disease, stage 3 unspecified; I50.32 Chronic diastolic (congestive) heart failure; I11.0 Hypertensive heart disease with heart failure; I48.20 Chronic atrial fibrillation, unspecified; E66.01 Morbid (severe) obesity due to excess calories

== ENCOUNTER 2022-10-02 18:43 | Inpatient (IN) ==
[2022-10-02] MEDS ORDERED: ONDANSETRON INJ 2 MG/ML 2 ML VIAL IV STA (19:29)
[2022-10-02] MEDS ORDERED: MoRPHine SULFATE 4 MG/ML 1 ML CARP\\VIAL IV STA (19:29)
[2022-10-02] MEDS ORDERED: SODIUM CHLORIDE 0.9% 500 ML IV STA (19:29)
--- NOTE | 2022-10-02 19:32 | Emergency Department Note ---
Impression & Plan Intramuscular hematoma, Supratherapeutic INR ADMIT ED Provider Note HPI: The patient is a 77-year-old female with history of paroxysmal atrial fibrillation, on Coumadin, who presents the emergency department with a chief complaint of left flank pain. Patient states this is been ongoing for the past several days. Patient also mentions some dysuria, she denies any nausea or vomiting, denies any diarrhea. On arrival here to the ED the patient is hemodynamically stable, she is in no acute distress on my initial assessment. ROS: -: Left flank pain *10 point review systems was conducted and is otherwise negative unless stated above *Outpatient medications and allergy history reviewed PE: General: Alert, morbidly obese HEENT: Normocephalic, trachea midline Eyes: Extraocular eye movement is intact, no scleral erythema Pulmonary: Clear to auscultation bilaterally, no wheezing Cardio: Regular rate and irregular rhythm GI: Abdomen is soft, nontender : No suprapubic tenderness, there is tenderness to the area of the left flank with palpation MSK: No evidence of trauma or malformation of the extremities, no edema Skin: No evidence of rash Neuro: Alert, no focal deficits 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: - An order was placed for continuous cardiac monitoring - Patient was noted to be in atrial fibrillation with a rate of 85 EKG: Rate: 87 Rhythm: Atrial fibrillation Intervals: Within normal limits ST changes: No ST elevation Time: 2245 Interventions provided in ED: -IV vitamin K, IV morphine, IV Zofran, PCC, IV fluids Medical Decision Making: Patient presented to the emergency department chief complaint of left flank pain, CT imaging shows evidence of intramuscular hematoma within the paraspinal musculature of the lumbar spine, also evidence of intramuscular hematoma in the piriformis muscle. There is evidence of hematuria without any acute infection in the urine, hemoglobin is stable at 12.5, patient is hemodynamically stable otherwise here in the ED. Lab work otherwise shows evidence of hypokalemia 2.6 that was repleted orally. On my reassessment the patient is resting comfortably in bed and states that she feels improved following a dose of IV morphine. She denies any trauma, states she has not had any falls recently. She does have a history of similar presentation that required admission back in June where she was given Kcentra and IV vitamin K. PT/INR did result in INR is elevated greater than 9.6, patient was given IV vitamin K, I discussed reversal with Dr. Leigh and she is in agreement at this time that the patient will require reversal with PCC and therefore this was ordered. I did also discuss the case with on-call general surgery and the patient was evaluated at the bedside by the Froylan JESUS, patient is not considered a surgical candidate and recommendation was made to manage INR and obtain serial H&H levels. I discussed all of the above findings, patient is in agreement for admission, she is hemodynamically stable and otherwise well-appearing on my reassessment. Case was discussed with the on-call hospitalist for [facility], Dr. Egan, patient has previously been admitted with [facility] issues [facility] the [facility]. He is in agreement for admission and the patient was admitted in stable condition for further care. Critical Care Time: 55-minute -- Time spent at the bedside (independent of any procedures) in management of a patient with complex medical issues, INR greater than 9.6 in the setting of s pontaneous intramuscular hematomas requiring Coumadin reversal with PCC and vitamin K, time spent with interpretation of diagnostic studies, discussion with patient and/or family, discussion with other physicians, and arrangement of disposition. Diagnosis: 1. Intramuscular hematoma of the paraspinal musculature 2. Intramuscular hematoma of the piriformis muscle, left side 3. Supratherapeutic INR greater than 9 point 4. Left flank pain, acute 5. Hypokalemia Disposition: Admission Orlando Granda DO Emergency Medicine Past Med/Surg History Medical History Atrial fibrillation Cellulitis Congestive heart failure Major depression, chronic Morbid obesity Neuropathy Osteoarthritis Surgical History Hx of total knee arthroplasty Family History Other No pertinent family history Social History Smoking Status: Former smoker Tobacco Type: Cigarettes Hx Alcohol Use: No Hx Substance Use: No Preferred Language: Azeri Communication Ability: Effective Uranium Processing Supervisor Required: No Beliefs That Will Affect Care: None marital status: Current Living Situation: Alone Current Living Situation Comment: friend helps with grocery shopping, takes van to appointments current occupational status: retired Feels Safe at Home: Yes Assistive Devices: Glasses and Walker Allergies Allergies Allergy/AdvReac Type Severity Reaction Status Date / Time Penicillins Allergy Intermediate HIVES Verified 10/03/22 00:39 Sulfa (Sulfonamide Allergy Unknown ` Verified 10/03/22 00:39 Antibiotics) aspirin AdvReac Severe BLEEDING Verified 10/03/22 00:39 ULCER Home Meds Home Medications Medication Instructions Recorded Confirmed bupropion HCl 300 mg 24 hr tablet, 300 mg PO DAILY 03/15/22 10/03/22 extended release escitalopram oxalate 20 mg tablet 20 mg PO DAILY 03/15/22 10/03/22 furosemide 40 mg tablet 40 mg PO DAILY 03/15/22 10/03/22 montelukast 10 mg tablet 10 mg PO QPM 03/15/22 10/03/22 multivitamin 1 tab PO DAILY 03/15/22 10/03/22 oxybutynin chloride 15 mg 15 mg PO DAILY 03/15/22 10/03/22 tablet,extended release 24 hr warfarin 5 mg tablet 5 mg PO DIRECTED 03/15/22 10/03/22 metoprolol tartrate 25 mg tablet 25 mg PO BID 06/27/22 10/03/22 polyethylene glycol 3350 17 gram 17 g PO DAILY PRN Constipation 06/27/22 10/03/22 oral powder packet (Miralax) Potassium Tab 1 tab PO DAILY 10/03/22 10/03/22 levothyroxine 100 mcg tablet 0 mcg PO DAILY 10/03/22 10/03/22 miconazole nitrate 2 % topical 1 applic topical DIRECTED PRN .. 10/03/22 10/03/22 ointment nystatin 100,000 unit/gram topical 1 applic topical BID 10/03/22 10/03/22 powder (Nyamyc) pregabalin 100 mg capsule (Lyrica) 100 mg PO BID 10/03/22 10/03/22 zinc oxide 40 % topical ointment 1 applic topical DIRECTED PRN 10/03/22 10/03/22 Dry Skin Results & Data (ED) Vital Signs Vital Signs - 24 hr 10/02/22 18:30 10/02/22 18:57 10/02/22 20:00 Temperature 36.8 C 36.8 C Temperature Source Oral Oral Pulse Rate 85 Pulse Rate [Apical] 90 Pulse Rate from SpO2 Sensor Pulse Rhythm Regular Pulse Strength Normal Pulse Strength [Apical] Normal Respiratory Rate 24 22 Respiratory Effort / Characteristics Non-Labored Non-Labored Respiratory Depth Normal Normal Respiratory Pattern Regular Regular Blood Pressure 111/62 Blood Pressure [Right Arm] 111/68 Blood Pressure Mean 78 Blood Pressure Mean [Right Arm] 82 Blood Pressure Position Lying Blood Pressure Position [Right Arm] Lying Pulse Oximetry 94 95 94 Oxygen Delivery Method Room Air Room Air Room Air Sepsis Recent Fever Within 48 Hours No Sepsis New/Unexplained Change in Mental Status N/A Sepsis Action Taken by Nursing No Action Required 10/02/22 21:05 10/02/22 22:31 10/02/22 23:00 Temperature Temperature Source Pulse Rate 89 Pulse Rate [Apical] 94 H 87 Pulse Rate from SpO2 Sensor Pulse Rhythm Pulse Strength Pulse Strength [Apical] Respiratory Rate 18 18 14 Respiratory Effort / Characteristics Non-Labored Respiratory Depth Normal Respiratory Pattern Regular Blood Pressure 102/75 Blood Pressure [Right Arm] 96/59 L 104/83 Blood Pressure Mean 84 Blood Pressure Mean [Right Arm] 71 90 Blood Pressure Position Blood Pressure Position [Right Arm] Pulse Oximetry 97 94 Oxygen Delivery Method Room Air Sepsis Recent Fever Within 48 Hours Sepsis New/Unexplained Change in Mental Status Sepsis Action Taken by Nursing 10/02/22 23:30 10/03/22 00:02 10/03/22 00:31 Temperature Temperature Source Pulse Rate 96 H 104 H 85 Pulse Rate [Apical] Pulse Rate from SpO2 Sensor 99 H 95 H Pulse Rhythm Pulse Strength Pulse Strength [Apical] Respiratory Rate 13 13 12 Respiratory Effort / Characteristics Respiratory Depth Respiratory Pattern Blood Pressure 104/85 126/76 102/58 L Blood Pressure [Right Arm] Blood Pressure Mean 91 92 72 Blood Pressure Mean [Right Arm] Blood Pressure Position Blood Pressure Position [Right Arm] Pulse Oximetry 93 97 Oxygen Delivery Method Room Air Room Air Sepsis Recent Fever Within 48 Hours Sepsis New/Unexplained Change in Mental Status Sepsis Action Taken by Nursing 10/03/22 01:01 10/03/22 01:47 10/03/22 01:45 Temperature Temperature Source Pulse Rate 95 H 82 Pulse Rate [Apical] 102 H Pulse Rate from SpO2 Sensor 90 92 H Pulse Rhythm Pulse Strength Pulse Strength [Apical] Respiratory Rate 12 13 13 Respiratory Effort / Characteristics Non-Labored Spontaneous Respiratory Depth Normal Respiratory Pattern Blood Pressure 130/84 116/84 Blood Pressure [Right Arm] 116/84 Blood Pressure Mean 99 94 Blood Pressure Mean [Right Arm] 94 Blood Pressure Position Blood Pressure Position [Right Arm] Pulse Oximetry 95 96 96 Oxygen Delivery Method Room Air Room Air Room Air Sepsis Recent Fever Within 48 Hours Sepsis New/Unexplained Change in Mental Status Sepsis Action Taken by Nursing 10/03/22 02:05 10/03/22 02:19 Temperature Temperature Source Pulse Rate 91 H 95 H Pulse Rate [Apical] Pulse Rate from SpO2 Sensor 93 H 101 H Pulse Rhythm Pulse Strength Pulse Strength [Apical] Respiratory Rate 13 14 Respiratory Effort / Characteristics Respiratory Depth Respiratory Pattern Blood Pressure 99/67 L 117/66 Blood Pressure [Right Arm] Blood Pressure Mean 77 83 Blood Pressure Mean [Right Arm] Blood Pressure Position Blood Pressure Position [Right Arm] Pulse Oximetry 95 94 Oxygen Delivery Method Room Air Room Air Sepsis Recent Fever Within 48 Hours Sepsis New/Unexplained Change in Mental Status Sepsis Action Taken by Nursing Laboratory Data Result diagrams: 10/03/22 01:51 10/02/22 20:02 Lab Results 10/02/22 10/02/22 10/02/22 Range/Units 20:02 20:02 20:02 WBC 7.39 (4.8-10.8) K/ul RBC 3.88 L (3.93-5.22) M/uL Hgb 12.5 (12.0-16.0) g/dl Hct 35.2 (34.1-44.9) % MCV 90.7 (80.0-100.0) fL MCH 32.2 (25.0-34.0) pg MCHC 35.5 (32.0-36.0) g/dL RDW Std Deviation 55.3 H (36.4-46.3) fL RDW Coeff of [place] 16.8 H (11.5-14.5) % Plt Count 217 (130-400) K/uL MPV 12.0 (9.4-12.3) fL Immature Gran % (Auto) 0.5 % Neut % (Auto) 80.4 % Lymph % (Auto) 8.0 % [place] % (Auto) 9.2 % Eos % (Auto) 1.6 % Baso % (Auto) 0.3 % Neut # (Auto) 5.94 (1.4-6.5) K/uL Lymph # (Auto) 0.59 L (1.2-3.4) K/uL [place] # (Auto) 0.68 (0.24-0.82) K/uL Eos # (Auto) 0.12 (0-0.50) K/uL Baso # (Auto) 0.02 (0-0.2) K/uL Immature Gran # (Auto) 0.04 H (0.00-0.02) K/uL PT INR APTT (21.0-31.0) Seconds PTT Ratio Fibrinogen (184-400) mg/dl Sodium 139 (136-145) mmol/L Potassium 2.6 L (3.5-5.1) mmol/L Chloride 100 (98-107) mmol/L Carbon Dioxide 32 (21-32) mmol/L Anion Gap 7 (3-11) BUN 19 (6-23) mg/dl Creatinine 1.19 (0.6-1.2) mg/dl Est Cr Clr Drug Dosing 51.4 ml/min Est GFR ( Amer) 51.7 ml/min Est GFR (Non-Af Amer) 44.6 ml/min BUN/Creatinine Ratio 16.0 (10-20) Glucose 85 (70-99(Fasting)) mg/dl Calcium 9.1 (8.5-10.1) mg/dl Total Bilirubin 1.3 H (0.2-1.0) mg/dl AST 86 H (13-39) U/L ALT 51 (7-52) U/L Alkaline Phosphatase 136 H (34-104) U/L Total Protein 6.1 (6.0-8.3) gm/dl Albumin 3.3 L (3.4-5.0) gm/dl Globulin 2.8 (2.5-4.0) gm/dl Albumin/Globulin Ratio 1.2 (0.9-2) Lipase 19 (11-82) U/L Urine Color Dark Yellow Urine Appearance Cloudy A (Clear) Urine pH 5.5 (4.5-7.5) Ur Specific [place] 1.019 (1.000-1.030) Urine Protein Trace H (Negative) Urine Glucose (UA) Negative (Negative) Urine Ketones Trace H (Negative) Urine Blood 3+ H (Negative) Urine Nitrite Negative (Negative) Urine Bilirubin Negative (Negative) Urine Urobilinogen Negative (Negative) Ur Leukocyte Esterase Trace H (Negative) Urine WBC (Auto) 1-5 (0-5) /hpf Urine RBC (Auto) 5-10 H (0-4) /hpf U Hyaline Cast (Auto) 5-10 H (0-5) /lpf U Epithel Cells (Auto) 10-20 H (0-5) /lpf Urine Bacteria (Auto) Negative (Negative) Urine Crystals Calcium Oxalate A (None Prsent) Calcium Oxalate Crystal Present A (None Prsent) Blood Type Antibody Screen 10/02/22 10/02/22 10/03/22 Range/Units 22:36 22:36 00:12 WBC (4.8-10.8) K/ul RBC (3.93-5.22) M/uL Hgb (12.0-16.0) g/dl Hct (34.1-44.9) % MCV (80.0-100.0) fL MCH (25.0-34.0) pg MCHC (32.0-36.0) g/dL RDW Std Deviation (36.4-46.3) fL RDW Coeff of [place] (11.5-14.5) % Plt Count (130-400) K/uL MPV (9.4-12.3) fL Immature Gran % (Auto) % Neut % (Auto) % Lymph % (Auto) % [place] % (Auto) % Eos % (Auto) % Baso % (Auto) % Neut # (Auto) (1.4-6.5) K/uL Lymph # (Auto) (1.2-3.4) K/uL [place] # (Auto) (0.24-0.82) K/uL Eos # (Auto) (0-0.50) K/uL Baso # (Auto) (0-0.2) K/uL Immature Gran # (Auto) (0.00-0.02) K/uL PT Cancelled > 90.0 H INR Cancelled > 9.6 H* APTT > 139.0 H* (21.0-31.0) Seconds PTT Ratio > 5.1 Fibrinogen 241 (184-400) mg/dl Sodium (136-145) mmol/L Potassium (3.5-5.1) mmol/L Chloride (98-107) mmol/L Carbon Dioxide (21-32) mmol/L Anion Gap (3-11) BUN (6-23) mg/dl Creatinine (0.6-1.2) mg/dl Est Cr Clr Drug Dosing ml/min Est GFR ( Amer) ml/min Est GFR (Non-Af Amer) ml/min BUN/Creatinine Ratio (10-20) Glucose (70-99(Fasting)) mg/dl Calcium (8.5-10.1) mg/dl Total Bilirubin (0.2-1.0) mg/dl AST (13-39) U/L ALT (7-52) U/L Alkaline Phosphatase (34-104) U/L Total Protein (6.0-8.3) gm/dl Albumin (3.4-5.0) gm/dl Globulin (2.5-4.0) gm/dl Albumin/Globulin Ratio (0.9-2) Lipase (11-82) U/L Urine Color Urine Appearance (Clear) Urine pH (4.5-7.5) Ur Specific [place] (1.000-1.030) Urine Protein (Negative) Urine Glucose (UA) (Negative) Urine Ketones (Negative) Urine Blood (Negative) Urine Nitrite (Negative) Urine Bilirubin (Negative) Urine Urobilinogen (Negative) Ur Leukocyte Esterase (Negative) Urine WBC (Auto) (0-5) /hpf Urine RBC (Auto) (0-4) /hpf U Hyaline Cast (Auto) (0-5) /lpf U Epithel Cells (Auto) (0-5) /lpf Urine Bacteria (Auto) (Negative) Urine Crystals (None Prsent) Calcium Oxalate Crystal (None Prsent) Blood Type O Positive Antibody Screen NEGATIVE 10/03/22 Range/Units 01:51 WBC (4.8-10.8) K/ul RBC (3.93-5.22) M/uL Hgb 11.7 L (12.0-16.0) g/dl Hct 34.0 L (34.1-44.9) % MCV (80.0-100.0) fL MCH (25.0-34.0) pg MCHC (32.0-36.0) g/dL RDW Std Deviation (36.4-46.3) fL RDW Coeff of [place] (11.5-14.5) % Plt Count (130-400) K/uL MPV (9.4-12.3) fL Immature Gran % (Auto) % Neut % (Auto) % Lymph % (Auto) % [place] % (Auto) % Eos % (Auto) % Baso % (Auto) % Neut # (Auto) (1.4-6.5) K/uL Lymph # (Auto) (1.2-3.4) K/uL [place] # (Auto) (0.24-0.82) K/uL Eos # (Auto) (0-0.50) K/uL Baso # (Auto) (0-0.2) K/uL Immature Gran # (Auto) (0.00-0.02) K/uL PT INR APTT (21.0-31.0) Seconds PTT Ratio Fibrinogen (184-400) mg/dl Sodium (136-145) mmol/L Potassium (3.5-5.1) mmol/L Chloride (98-107) mmol/L Carbon Dioxide (21-32) mmol/L Anion Gap (3-11) BUN (6-23) mg/dl Creatinine (0.6-1.2) mg/dl Est Cr Clr Drug Dosing ml/min Est GFR ( Amer) ml/min Est GFR (Non-Af Amer) ml/min BUN/Creatinine Ratio (10-20) Glucose (70-99(Fasting)) mg/dl Calcium (8.5-10.1) mg/dl Total Bilirubin (0.2-1.0) mg/dl AST (13-39) U/L ALT (7-52) U/L Alkaline Phosphatase (34-104) U/L Total Protein (6.0-8.3) gm/dl Albumin (3.4-5.0) gm/dl Globulin (2.5-4.0) gm/dl Albumin/Globulin Ratio (0.9-2) Lipase (11-82) U/L Urine Color Urine Appearance (Clear) Urine pH (4.5-7.5) Ur Specific [place] (1.000-1.030) Urine Protein (Negative) Urine Glucose (UA) (Negative) Urine Ketones (Negative) Urine Blood (Negative) Urine Nitrite (Negative) Urine Bilirubin (Negative) Urine Urobilinogen (Negative) Ur Leukocyte Esterase (Negative) Urine WBC (Auto) (0-5) /hpf Urine RBC (Auto) (0-4) /hpf U Hyaline Cast (Auto) (0-5) /lpf U Epithel Cells (Auto) (0-5) /lpf Urine Bacteria (Auto) (Negative) Urine Crystals (None Prsent) Calcium Oxalate Crystal (None Prsent) Blood Type Antibody Screen Administered Medications Discontinued Medications Sodium Chloride (Nss) 500 mls @ 999 mls/hr IV .Q31M STA Stop: 10/02/22 19:59 Last Infusion: 10/02/22 20:59 Dose: 0 mls/hr Documented By: Admin: 10/02/22 19:57 Dose: 999 mls/hr Documented By: OMAR Sodium Chloride (Nss 1000ml) 500 mls @ 999 mls/hr IV .Q31M ONE Stop: 10/02/22 22:59 Last Infusion: 10/03/22 02:23 Dose: 0 mls/hr Documented By: Admin: 10/02/22 22:50 Dose: 999 mls/hr Documented By: OMAR Phytonadione 10 mg/ Dextrose 51 mls @ 102 mls/hr IV ONE ONE Stop: 10/03/22 02:05 Last Admin: 10/03/22 02:06 Dose: 102 mls/hr Documented By: GENA Morphine Sulfate (Morphine Sulfate 4 Mg/Ml 1 Ml Carp\Vial) 4 mg IV NOW STA Stop: 10/02/22 19:30 Last Admin: 10/02/22 19:57 Dose: 4 mg Documented By: OMAR Morphine Sulfate (Morphine Sulfate 2 Mg/Ml Carp) 2 mg IV NOW STA Stop: 10/02/22 22:30 Last Admin: 10/02/22 22:49 Dose: 2 mg Documented By: OMAR Ondansetron HCl (Ondansetron Inj 2 Mg/Ml 2 Ml Vial) 4 mg IV NOW STA Stop: 10/02/22 19:30 Last Admin: 10/02/22 19:56 Dose: 4 mg Documented By: OMAR Potassium Chloride (Potassium Chloride Crtab 20 Meq Tabcr) 40 meq PO NOW STA Stop: 10/02/22 21:08 Last Admin: 10/02/22 21:29 Dose: 40 meq Documented By: OMAR Imaging Data Radiologist's Impression: Abdomen/Pelvis CT 10/02/22 19:29 CT OF THE ABDOMEN AND PELVIS WITHOUT CONTRAST CLINICAL HISTORY: Left flank pain. COMPARISON STUDY: CT of the abdomen pelvis June 28, 2022. TECHNIQUE: Axial images of the abdomen and pelvis were obtained without IV contrast. Images were reviewed in the axial, sagittal, and coronal planes. Automated exposure control was utilized for the study. A dose lowering technique was utilized adhering to the principles of ALARA. FINDINGS: Cardiomegaly is noted. No pneumatosis, free air or portal venous gas is present. Evaluation of the abdomen and pelvis is suboptimal on this unenhanced exam. There is hepatic steatosis. There are gallstones within gallbladder without evidence for acute cholecystitis. Unenhanced images of the spleen, adrenal glands, kidneys and pancreas are unremarkable. Water attenuation left renal lesion likely reflects a cyst. There is no hydronephrosis. There is no evidence for a bowel obstruction. No bowel wall thickening is identified on unenhanced exam. No acute fracture within the lumbar spine, pelvis or hips is identified. Note is made of several acute intramuscular hematomas within the left paraspinal musculature of the lumbar spine. The largest hematoma measures 7.5 x 4.4 x 3.6 cm. An additional intramuscular hematoma within the left piriformis muscle measures 5.3 x 2.8 cm. These hematomas contain hematocrit levels. IMPRESSION: 1. Acute intramuscular hematomas within the left paraspinal musculature of the lumbar spine and within the left piriformis muscle. The largest hematoma within the paraspinal musculature measures 7.5 x 4.4 x 3.6 cm. Hematocrit levels within the hematomas raise the possibility of anticoagulation. 2. No bowel obstruction. No bowel wall thickening on unenhanced exam. 3. Hepatic steatosis. ACT 112: Negative or not required by law. Electronically signed by: Boston Hammond M.D. 10/02/2022 9:22 PM Discharge Plan Visit Data Chief Complaint: Urinary Symptoms Stated Complaint: POSSIBLE UTI;LOW BACK PAIN; BURNING URINATION ED Provider: Orlando Granda Discharge Problem: Intramuscular hematoma, Supratherapeutic INR Forms Stand Alone Forms: My [facility] Web Performance Prescriptions Prescriptions: No Action furosemide 40 mg tablet 40 mg PO DAILY oxybutynin chloride 15 mg tablet extended release 24 hr 15 mg PO DAILY montelukast 10 mg tablet 10 mg PO QPM escitalopram oxalate 20 mg tablet 20 mg PO DAILY bupropion HCl 300 mg tablet extended release 24 hr 300 mg PO DAILY multivitamin Tablet 1 tab PO DAILY warfarin 5 mg Tablet 5 mg PO DIRECTED Rx Instructions: As directed by anticoagulation clinic polyethylene glycol 3350 [Miralax] 17 gram Powder In Packet 17 g PO DAILY PRN (Reason: Constipation) metoprolol tartrate 25 mg tablet 25 mg PO BID levothyroxine 100 mcg tablet 0 mcg PO DAILY Rx Instructions: Patient is not sure if dose is 75mcg or 100 mcg miconazole nitrate 2 % Ointment 1 applic TOPICAL DIRECTED PRN (Reason: ..) nystatin [Nyamyc] 100,000 unit/gram powder 1 applic TOPICAL BID pregabalin [Lyrica] 100 mg Capsule 100 mg PO BID zinc oxide 40 % Ointment 1 applic TOPICAL DIRECTED PRN (Reason: Dry Skin) Potassium Tab 1 tab PO DAILY Rx Instructions: patient states she was just put back on this. Referrals Referrals: Brigette Moser DO [Primary Care Provider] -
[2022-10-02 20:23] LABS: Basophils # (auto) 0.02 K/uL (0-0.2); Basophils % (auto) 0.3 %; Eosinophils # (auto) 0.12 K/uL (0-0.50); Eosinophils % (auto) 1.6 %; Hematocrit (blood only) 35.2 % (34.1-44.9); Hemoglobin 12.5 g/dl (12.0-16.0); Immature Granulocytes # (auto) 0.04 K/uL (0.00-0.02); Immature Granulocytes % (auto) 0.5 %; Lymphocytes # (auto) 0.59 K/uL (1.2-3.4); Mean Corpuscular Hemoglobin 32.2 pg (25.0-34.0); Mean Corpuscular Hgb Conc 35.5 g/dL (32.0-36.0); Mean Corpuscular Volume 90.7 fL (80.0-100.0); Monocytes # (auto) 0.68 K/uL (0.24-0.82); Monocytes % (auto) 9.2 %; Neutrophils # (auto) 5.94 K/uL (1.4-6.5); Neutrophils % (auto) 80.4 %; Platelet Count 217 K/uL (130-400); RDW Coefficient of Variation 16.8 % (11.5-14.5); RDW Standard Deviation 55.3 fL (36.4-46.3); Red Blood Count 3.88 M/uL (3.93-5.22); White Blood Count 7.39 K/ul (4.8-10.8)
[2022-10-02 20:30] LABS: Appearance Urine Cloudy (Clear); Bacteria Urine Automated Negative (Negative); Bilirubin Urine Negative (Negative); Blood Urine 3+ (Negative); Color Urine Dark Yellow; Glucose Urine UA Negative (Negative); Ketones Urine Trace (Negative); Leukocyte Esterase Urine Trace (Negative); Nitrite Urine Negative (Negative); Protein Urine Trace (Negative); Specific Gravity Urine 1.019 (1.000-1.030); Urobilinogen Urine Negative (Negative); pH Urine 5.5 (4.5-7.5)
[2022-10-02 20:46] LABS: Albumin Globulin Ratio 1.2 (0.9-2); Albumin Level 3.3 gm/dl (3.4-5.0); Bilirubin,Total 1.3 mg/dl (0.2-1.0); Calcium 9.1 mg/dl (8.5-10.1); Creatinine Clr Calc Pharmacy 51.4 ml/min; Est GFR (African American) 51.7 ml/min; Est GFR (Non-African American) 44.6 ml/min; Globulin 2.8 gm/dl (2.5-4.0); Potassium 2.6 mmol/L (3.5-5.1); Total Protein 6.1 gm/dl (6.0-8.3)
[2022-10-02 20:58] LABS: Calcium Oxalate Crystals Urine Present (None Prsent)
[2022-10-02] MEDS ORDERED: POTASSIUM CHLORIDE CRTAB 20 MEQ TABCR PO STA (21:07)
--- NOTE | 2022-10-02 21:24 | CT Scan Report ---
CT OF THE ABDOMEN AND PELVIS WITHOUT CONTRAST CLINICAL HISTORY: Left flank pain. COMPARISON STUDY: CT of the abdomen pelvis June 28, 2022. TECHNIQUE: Axial images of the abdomen and pelvis were obtained without IV contrast. Images were revi ewed in the axial, sagittal, and coronal planes. Automated exposure control was utilized for the babar dy. A dose lowering technique was utilized adhering to the principles of ALARA. FINDINGS: Cardiomegaly is noted. No pneumatosis, free air or portal venous gas is present. Evaluation of the abdomen and pelvis is suboptimal on this unenhanced exam. There is hepatic steatosis. There a re gallstones within gallbladder without evidence for acute cholecystitis. Unenhanced images of the s pleen, adrenal glands, kidneys and pancreas are unremarkable. Water attenuation left renal lesion lik antoine reflects a cyst. There is no hydronephrosis. There is no evidence for a bowel obstruction. No bow el wall thickening is identified on unenhanced exam. No acute fracture within the lumbar spine, pelvi s or hips is identified. Note is made of several acute intramuscular hematomas within the left parasp inal musculature of the lumbar spine. The largest hematoma measures 7.5 x 4.4 x 3.6 cm. An additional intramuscular hematoma within the left piriformis muscle measures 5.3 x 2.8 cm. These hematomas cont ain hematocrit levels. IMPRESSION: 1. Acute intramuscular hematomas within the left paraspinal musculature of the lumbar spine and withi n the left piriformis muscle. The largest hematoma within the paraspinal musculature measures 7.5 x 4 .4 x 3.6 cm. Hematocrit levels within the hematomas raise the possibility of anticoagulation. 2. No bowel obstruction. No bowel wall thickening on unenhanced exam. 3. Hepatic steatosis. ACT 112: Negative or not required by law. Electronically signed by: Boston Hammond M.D. 10/02/2022 9:22 PM
[2022-10-02] MEDS ORDERED: MoRPHine SULFATE 2 MG/ML CARP IV STA (22:29)
[2022-10-02] MEDS ORDERED: SODIUM CHLORIDE 0.9% 1000ML 500 ML IV ONE (22:29)
--- NOTE | 2022-10-03 01:12 | Surgery Consultation ---
Date of Consultation October 03, 2022 Assessment & Plan (1) Intramuscular hematoma: Concerning the patient's intramuscular hematomas we recommend proceeding as follows: It appears as though the patient has had a spontaneous intramuscular hematoma of her paraspinal muscles and piriformis. As noted in HPI she does not have any trauma or falls. She has also not have any episodes of forceful coughing or retching what would would have precipitated such a bleed. The patient does take Coumadin which should be held until her INR level is ascertained. If the INR level is noted to be elevated consideration should be given to reversing this agent At the present time the patient has a normal hemoglobin and hematocrit. Serial levels should be followed and if there is a precipitous drop consideration should be given to transfusing If the patient is noted to have concerns for ongoing bleeding despite reversing INR consideration should be given to transferring the patient to a facility where interventional radiology is available for the potential of embolizing any bleeding vessels Supervising Physician Co-Signing Physician Notes Dr. Howardcussusy with Fro[facility] Yanes regarding patient and evaluation of her laboratories and studies show several Acute hematomas in the left posterior abdominal pelvic muscular areas. Her hematocrit initially was 35 and approximately 5 to 6 hours later was 34 Normally these are nonsurgical events secondary to her anticoagulation If she were to show significant expansion and fall in her hematocrit transfer to tertiary care center for interventional radiology and embolization would be amee ropriate History of Present Illness Reason for Consultation: Intramuscular hematomas History of Present Illness This is a 77-year-old female who presented to the emergency department secondary to weakness. I discussed with the treating emergency room physician prior to encountering the patient and he notes that the patient initially was complaining of left flank pain. At the time of my interview the patient denies ever having any left flank pain and says she merely presented to the emergency department secondary to some generalized weakness which was most pronounced in her lower extremities causing difficulty ambulating. The patient denies any history of falls or trauma. She denies any episodes of forceful coughing or retching. She notes that she does take Coumadin for history of atrial fibrillation. She denies any abdominal pain. She denies any nausea or vomiting. She denies any fevers, shakes, or chills. She denies any lightheadedness or dizziness. In the emergency department the patient had labs and imaging which I independently reviewed. A CT scan of the abdomen and pelvis showed the patient had acute intramuscular hematomas within the left paraspinal musculature, the largest measuring 7.5 x 4.4 x 3.6 cm. The patient was also noted to have hematoma in the left piriformis muscle measuring 5.3 x 2.8 cm. Labs included CBC her white blood cell count, hemoglobin, hematocrit, platelet count were all normal. Patient did have coagulation studies sent which are pending. Chemistry profile showed sodium was normal. Her potassium was 2.6. BUN and creatinine were both normal. At the time of my interview the patient was resting comfortably in bed and she was in no distress. Allergies Allergy/AdvReac Type Severity Reaction Status Date / Time Penicillins Allergy Intermediate HIVES Verified 10/03/22 00:39 Sulfa (Sulfonamide Allergy Unknown ` Verified 10/03/22 00:39 Antibiotics) aspirin AdvReac Severe BLEEDING Verified 10/03/22 00:39 ULCER Home Medications Medication Instructions Recorded Confirmed Type bupropion HCl 300 mg 24 hr tablet, 300 mg PO DAILY 03/15/22 10/03/22 History extended release escitalopram oxalate 20 mg tablet 20 mg PO DAILY 03/15/22 10/03/22 History furosemide 40 mg tablet 40 mg PO DAILY 03/15/22 10/03/22 History montelukast 10 mg tablet 10 mg PO QPM 03/15/22 10/03/22 History multivitamin 1 tab PO DAILY 03/15/22 10/03/22 History oxybutynin chloride 15 mg 15 mg PO DAILY 03/15/22 10/03/22 History tablet,extended release 24 hr warfarin 5 mg tablet 5 mg PO DIRECTED 03/15/22 10/03/22 History metoprolol tartrate 25 mg tablet 25 mg PO BID 06/27/22 10/03/22 History polyethylene glycol 3350 17 gram 17 g PO DAILY PRN Constipation 06/27/22 10/03/22 History oral powder packet (Miralax) Potassium Tab 1 tab PO DAILY 10/03/22 10/03/22 History levothyroxine 100 mcg tablet 0 mcg PO DAILY 10/03/22 10/03/22 History miconazole nitrate 2 % topical 1 applic topical DIRECTED PRN .. 10/03/22 10/03/22 History ointment nystatin 100,000 unit/gram topical 1 applic topical BID 10/03/22 10/03/22 History powder (Nyamyc) pregabalin 100 mg capsule (Lyrica) 100 mg PO BID 10/03/22 10/03/22 History zinc oxide 40 % topical ointment 1 applic topical DIRECTED PRN 10/03/22 10/03/22 History Dry Skin Patient History Medical History Atrial fibrillation Cellulitis Congestive heart failure Major depression, chronic Morbid obesity Neuropathy Osteoarthritis Surgical History Hx of total knee arthroplasty Family History Other No pertinent family history Social History Smoking Status: Former smoker Tobacco Type: Cigarettes Hx Alcohol Use: No Hx Substance Use: No Preferred Language: Divehi Communication Ability: Effective Job Order 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 Required: No Beliefs That Will Affect Care: None marital status: Current Living Situation: Alone Current Living Situation Comment: friend helps with grocery shopping, takes van to appointments current occupational status: retired Feels Safe at Home: Yes Assistive Devices: Glasses and Walker Review of Systems Constitutional: + weakness; no fever and no chills Eyes: + corrective lenses Ear, Nose, Mouth, Throat: no ear pain Respiratory: no cough and no dyspnea Cardiovascular: no chest pain Gastrointestinal: no abdominal pain, no nausea and no vomiting Genitourinary: no dysuria Musculoskeletal: no back pain Integumentary: no rash Neurologic: + generalized weakness Physical Exam Physical Exam: The patient's back/buttocks were examined. The patient was noted to have ecchymosis bilaterally in her flanks as well as her superior buttocks bilaterally. There is no crepitus noted in the soft tissue. There are no open areas or drainage. The areas were not warm to touch. The areas were not tender to palpation. Constitutional: WD/WN, vitals as above Eyes: Wears glasses ENMT: Ears: no hearing impairment and no external ear abnormality Mouth: no oropharynx abnormality Neck: trachea midline Respiratory: normal respiratory effort; no respiratory distress and no labored breathing Cardiovascular: Rate/Rhythm: regular rate and regular rhythm Gastrointestinal (Abdomen): Soft, nontender, nondistended. There is no pain with palpation Musculoskeletal: No calf tenderness Skin: no rashes Neurologic: The patient is able to move all 4 extremities. The patient is able to dorsi and plantarflex both feet. She is able to lift both legs off the bed against gravity without difficulty. Psychiatric: A+Ox3, euthymic affect Results & Data ([facility]) Vital Signs (Past 12 Hours) Vital Signs Temp Pulse Pulse Resp BP BP Pulse Ox 10/03/22 00:31 85 12 102/58 L 97 10/03/22 00:02 104 H 13 126/76 93 10/02/22 23:30 96 H 13 104/85 10/02/22 23:00 89 14 102/75 10/02/22 22:31 87 18 104/83 94 10/02/22 21:05 94 H 18 96/59 L 97 10/02/22 20:00 94 10/02/22 18:57 36.8 C 90 22 111/68 95 10/02/22 18:30 36.8 C 85 24 111/62 94 O2 Del Method 10/03/22 00:31 Room Air 10/03/22 00:02 Room Air 10/02/22 23:30 10/02/22 23:00 10/02/22 22:31 10/02/22 21:05 Room Air 10/02/22 20:00 Room Air 10/02/22 18:57 Room Air 10/02/22 18:30 Room Air PG Care Time/CCT Total # of Minutes Spent Total Time Spent with Patient: Total time spent is greater than 50% in coordination of care (as documented) at patient's floor/unit and/or counseling patient: Coding Level of Care Code 32996 Inpt Consult Level 5 Diagnoses Intramuscular hematoma T14.8XXA
[2022-10-03 01:24] LABS: Prothrombin Time > 90.0 Seconds (9.0-12.0)
[2022-10-03] MEDS ORDERED: PHYTONADIONE 10 MG in DEXTROSE 5% 50 ML IV ONE (01:36)
[2022-10-03 01:37] LABS: INR > 9.6 (0.9-1.1)
[2022-10-03] MEDS ORDERED: PROTHROMBIN COMP CONC- KCENTRA 5,000 UNITS in SYRINGE 0 ML IV STA (01:52)
[2022-10-03] MEDS ORDERED: PROTHROMBIN COMP CONC- KCENTRA 5,000 UNITS in SYRINGE 0 ML IV SCH (02:00)
[2022-10-03 02:08] LABS: Fibrinogen 241 mg/dl (184-400)
[2022-10-03 02:09] LABS: Partial Thromboplastin Ratio > 5.1
[2022-10-03 02:16] LABS: Partial Thromboplastin Time > 139.0 Seconds (21.0-31.0)
[2022-10-03 02:25] LABS: Hemoglobin 11.7 g/dl (12.0-16.0)
[2022-10-03] MEDS ORDERED: POTASSIUM CHLORIDE CRTAB 20 MEQ TABCR PO STA (02:25)
[2022-10-03] MEDS ORDERED: cefTRIAXone SODIUM 2,000 MG/70 ML BAG IV STA (03:06)
[2022-10-03] MEDS ORDERED: ALBUMIN 25% 12.5 GM/50 ML VIAL IV ONE (03:26)
[2022-10-03] MEDS ORDERED: FUROSEMIDE INJ 20 MG/2 ML VIAL IV ONE (03:26)
--- NOTE | 2022-10-03 03:28 | History & Physical Report ---
Date of Service October 03, 2022 Assessment & Plan (1) Intramuscular hematoma: Plan: Paraspinal and piriformis muscle hematomas Recurrent bleed In the setting of Coumadin coagulopathy, history A. fib Likely underlying functional disability Hemoglobin stable at baseline Complicated UTI hx mixed incontinence as per records No overt sepsis for now chronic diastolic heart failure, equivocal volume status, some congestion on CXR hypertension, BP on the lower side hypothyroidism, euthyroid as of recent outpatient TSH Hypokalemia secondary to diuretic Rx Left toe melanoma status post surgery/chemotherapy, patient follows with [facility] oncologist prediabetes, hemoglobin A1c of 5.5 last March 2022 past tobacco abuse Medical telemetry Follow H&H, transfuse PRBC if hemoglobin less than 7 and or for symptomatic anemia Hold Coumadin Cardiology consult Re: Recurrent bleed, history A. fib on Coumadin Urine CS, Ceftriaxone Replace potassium PT OT eval DVT prophylaxis. SCDs Re: Muscle bleed DNR Text document was generated using [employer] voice recognition software. It may contain grammatical or spelling errors. Kindly contact undersigned for clarification of any documentation item in question. History of Present Illness Chief Complaint: Left back pain, dysuria Primary Care Provider: Brigette Moser, DO History obtained from patient and records. Medical history significant for chronic diastolic heart failure, A. fib on Coumadin, hypertension, hypothyroidism, mixed incontinence as per records, chronic anemia (baseline hemoglobin 11), melanoma status post surgery/chemotherapy, prediabetes, past tobacco abuse. Last [facility] confinement June 2022 for spontaneous left thigh hematoma in the setting of Coumadin coagulopathy. INR greater than 9 on admission. Patient received vitamin K and Kcentra. Coumadin later restarted outpatient. [place] [facility] [place] September 01, [place]22 for septic shock secondary to Klebsiella UTI, SCOOBY, C. difficile status post vancomycin treatment. Patient discharged back to [facility]. Patient returned home 3 weeks ago. Last week patient got stuck in a lift chair. Home PT notice bruising on the left flank. Concerns about patient's safety being at home long-term. Yesterday, patient noted achy left flank pain. Dysuria symptoms. No chest pain, no SOB, no headache, no abdominal pain, no black no bloody stools. Patient feeling weak. Unable to move around. Patient brought to the ER for evaluation. Left paraspinal and piriformis muscle hematomas noted on CT. INR noted to be greater than 9. Vitamin K and Kcentra administered at the ER. 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 Allergies Allergy/AdvReac Type Severity Reaction Status Date / Time Penicillins Allergy Intermediate HIVES Verified 10/03/22 00:39 Sulfa (Sulfonamide Allergy Unknown ` Verified 10/03/22 00:39 Antibiotics) aspirin AdvReac Severe BLEEDING Verified 10/03/22 00:39 ULCER Home Medications Medication Instructions Recorded Confirmed Type bupropion HCl 300 mg 24 hr tablet, 300 mg PO DAILY 03/15/22 10/03/22 History extended release escitalopram oxalate 20 mg tablet 20 mg PO DAILY 03/15/22 10/03/22 History furosemide 40 mg tablet 40 mg PO DAILY 03/15/22 10/03/22 History montelukast 10 mg tablet 10 mg PO QPM 03/15/22 10/03/22 History multivitamin 1 tab PO DAILY 03/15/22 10/03/22 History oxybutynin chloride 15 mg 15 mg PO DAILY 03/15/22 10/03/22 History tablet,extended release 24 hr warfarin 5 mg tablet 5 mg PO DIRECTED 03/15/22 10/03/22 History metoprolol tartrate 25 mg tablet 25 mg PO BID 06/27/22 10/03/22 History polyethylene glycol 3350 17 gram 17 g PO DAILY PRN Constipation 06/27/22 10/03/22 History oral powder packet (Miralax) Potassium Tab 1 tab PO DAILY 10/03/22 10/03/22 History levothyroxine 100 mcg tablet 0 mcg PO DAILY 10/03/22 10/03/22 History miconazole nitrate 2 % topical 1 applic topical DIRECTED PRN .. 10/03/22 10/03/22 History ointment nystatin 100,000 unit/gram topical 1 applic topical BID 10/03/22 10/03/22 History powder (Nyamyc) pregabalin 100 mg capsule (Lyrica) 100 mg PO BID 10/03/22 10/03/22 History zinc oxide 40 % topical ointment 1 applic topical DIRECTED PRN 10/03/22 10/03/22 History Dry Skin Past Med/Surg History Medical History Atrial fibrillation Cellulitis Congestive heart failure Major depression, chronic Morbid obesity Neuropathy Osteoarthritis Surgical History Hx of total knee arthroplasty Family History Other No pertinent family history Social History Smoking Status: Never smoker Tobacco Type: Cigarettes Second Hand Exposure: No; Do You Dip or Chew Tobacco: No; Tobacco Cessation Education Requested by Patient: No Hx Alcohol Use: No Hx Substance Use: No Preferred Language: Kazakh Communication Ability: Effective Etcher Apprentice Photoengraving Required: No Beliefs That Will Affect Care: None marital status: Current Living Situation: Alone Current Living Situation Comment: lives alone with occasional caregivers current occupational status: retired Other Information That Helps Us Care for You: No Feels Safe at Home: Yes Safety Concerns: Feels Safe At This Time Assistive Devices: Glasses, Walker and Wheelchair Review of Systems Review of Systems: As per HPI, all other systems reviewed and negative Physical Exam Physical Exam: GENERAL: Comfortable, somewhat apathetic, morbidly obese, slightly hard of hearing, episodic abdominal breathing SKIN: Pallor , warm HEENT: Bespectacled, pale palpebral conjunctivae, no ptosis, dry buccal mucosa NECK : Supple, short neck, no tenderness CHEST : Decreased breath sounds, no tenderness HEART : Tachycardic, irregular, no obvious murmurs ABDOMEN: Some distention, nontender BACK : Left flank tenderness, positive SLRs bilateral EXTREMITIES : Minimal LE swelling, no LE tenderness, no other conspicuous deformities noted NEUROLOGIC : Coherent, no facial asymmetry, slightly hard of hearing, gait and stance not assessed Results & Data Results & Data ([facility]) Vital Signs (Past 12 Hours) Vital Signs Temp Pulse Pulse Resp BP BP Pulse Ox 10/03/22 02:45 100 H 13 97/74 L 97 10/03/22 02:31 98 H 16 129/86 96 10/03/22 02:19 95 H 14 117/66 94 10/03/22 02:05 91 H 13 99/67 L 95 10/03/22 01:45 82 13 116/84 96 10/03/22 01:47 102 H 13 116/84 96 10/03/22 01:01 95 H 12 130/84 95 10/03/22 00:31 85 12 102/58 L 97 10/03/22 00:02 104 H 13 126/76 93 10/02/22 23:30 96 H 13 104/85 10/02/22 23:00 89 14 102/75 10/02/22 22:31 87 18 104/83 94 10/02/22 21:05 94 H 18 96/59 L 97 10/02/22 20:00 94 10/02/22 18:57 36.8 C 90 22 111/68 95 10/02/22 18:30 36.8 C 85 24 111/62 94 O2 Del Method 10/03/22 02:45 Room Air 10/03/22 02:31 Room Air 10/03/22 02:19 Room Air 10/03/22 02:05 Room Air 10/03/22 01:45 Room Air 10/03/22 01:47 Room Air 10/03/22 01:01 Room Air 10/03/22 00:31 Room Air 10/03/22 00:02 Room Air 10/02/22 23:30 10/02/22 23:00 10/02/22 22:31 10/02/22 21:05 Room Air 10/02/22 20:00 Room Air 10/02/22 18:57 Room Air 10/02/22 18:30 Room Air Laboratory Results Laboratory Results WBC 7.39 K/ul (4.8-10.8) 10/02/22 20:02 RBC 3.88 M/uL (3.93-5.22) L 10/02/22 20:02 Hgb 11.7 g/dl (12.0-16.0) L 10/03/22 01:51 Hct 34.0 % (34.1-44.9) L 10/03/22 01:51 MCV 90.7 fL (80.0-100.0) 10/02/22 20:02 MCH 32.2 pg (25.0-34.0) 10/02/22 20:02 MCHC 35.5 g/dL (32.0-36.0) 10/02/22 20:02 RDW Std Deviation 55.3 fL (36.4-46.3) H 10/02/22 20: RDW Coeff of Shoshana 16.8 % (11.5-14.5) H 10/02/22 20:02 Plt Count 217 K/uL (130-400) 10/02/22 20: MPV 12.0 fL (9.4-12.3) 10/02/22 20: Immature Gran % (Auto) 0.5 % 10/02/22 20: Neut % (Auto) 80.4 % 10/02/22 20: Lymph % (Auto) 8.0 % 10/02/22 20: Owsley % (Auto) 9.2 % 10/02/22 20: Eos % (Auto) 1.6 % 10/02/22 20: Baso % (Auto) 0.3 % 10/02/22 20: Neut # (Auto) 5.94 K/uL (1.4-6.5) 10/02/22 20: Lymph # (Auto) 0.59 K/uL (1.2-3.4) L 10/02/22 20:02 Owsley # (Auto) 0.68 K/uL (0.24-0.82) 10/02/22 20:02 Eos # (Auto) 0.12 K/uL (0-0.50) 10/02/22 20: Baso # (Auto) 0.02 K/uL (0-0.2) 10/02/22 20: Immature Gran # (Auto) 0.04 K/uL (0.00-0.02) H 10/02/22 20:02 PT > 90.0 Seconds (9.0-12.0) H 10/03/22 00:12 INR > 9.6 (0.9-1.1) H* 10/03/22 00:12 APTT > 139.0 Seconds (21.0-31.0) H* 10/03/22 00:12 PTT Ratio > 5.1 10/03/22 00:12 Fibrinogen 241 mg/dl (184-400) 10/03/22 00:12 Heparin Anti-Xa, LM Wt < 0.10 IU/ML (< 0.10) 10/03/22 00:12 Sodium 139 mmol/L (136-145) 10/02/22 20:02 Potassium 2.6 mmol/L (3.5-5.1) L 10/02/22 20:02 Chloride 100 mmol/L (98-107) 10/02/22 20:02 Carbon Dioxide 32 mmol/L (21-32) 10/02/22 20:02 Anion Gap 7 (3-11) 10/02/22 20:02 BUN 19 mg/dl (6-23) 10/02/22 20:02 Creatinine 1.19 mg/dl (0.6-1.2) 10/02/22 20:02 Est Cr Clr Drug Dosing 51.4 ml/min 10/02/22 20:02 Est GFR ( Amer) 51.7 ml/min 10/02/22 20:02 Est GFR (Non-Af Amer) 44.6 ml/min 10/02/22 20:02 BUN/Creatinine Ratio 16.0 (10-20) 10/02/22 20:02 Glucose 85 mg/dl (70-99(Fasting)) 10/02/22 20:02 Calcium 9.1 mg/dl (8.5-10.1) 10/02/22 20:02 Magnesium 1.7 mg/dl (1.7-2.4) 10/02/22 20:02 Total Bilirubin 1.3 mg/dl (0.2-1.0) H 10/02/22 20:02 AST 86 U/L (13-39) H 10/02/22 20:02 ALT 51 U/L (7-52) 10/02/22 20:02 Alkaline Phosphatase 136 U/L (34-104) H 10/02/22 20:02 Total Protein 6.1 gm/dl (6.0-8.3) 10/02/22 20:02 Albumin 3.3 gm/dl (3.4-5.0) L 10/02/22 20: Globulin 2.8 gm/dl (2.5-4.0) 10/02/22 20: Albumin/Globulin Ratio 1.2 (0.9-2) 10/02/22 20: Lipase 19 U/L (11-82) 10/02/22 20:02 Urine Color Dark Yellow 10/02/22 20:02 Urine Appearance Cloudy (Clear) A 10/02/22 20:02 Urine pH 5.5 (4.5-7.5) 10/02/22 20:02 Ur Specific [place] 1.019 (1.000-1.030) 10/02/22 20:02 Urine Protein Trace (Negative) H 10/02/22 20:02 Urine Glucose (UA) Negative (Negative) 10/02/22 20: Urine Ketones Trace (Negative) H 10/02/22 20:02 Urine Blood 3+ (Negative) H 10/02/22 20:02 Urine Nitrite Negative (Negative) 10/02/22 20: Urine Bilirubin Negative (Negative) 10/02/22 20: Urine Urobilinogen Negative (Negative) 10/02/22 20: Ur Leukocyte Esterase Trace (Negative) H 10/02/22 20:02 Urine WBC (Auto) 1-5 /hpf (0-5) 10/02/22 20:02 Urine RBC (Auto) 5-10 /hpf (0-4) H 10/02/22 20:02 U Hyaline Cast (Auto) 5-10 /lpf (0-5) H 10/02/22 20:02 U Epithel Cells (Auto) 10-20 /lpf (0-5) H 10/02/22 20:02 Urine Bacteria (Auto) Negative (Negative) 10/02/22 20:02 Urine Crystals Calcium Oxalate (None Prsent) A 10/02/22 20:02 Calcium Oxalate Crystal Present (None Prsent) A 10/02/22 20:02 SARS-CoV-2, RNA, NAAT NEGATIVE (NEGATIVE) 10/03/22 02:10 Blood Type O Positive 10/02/22 22:36 Antibody Screen NEGATIVE 10/02/22 22:36 Impressions Abdomen/Pelvis CT 10/02/22 19:29 CT OF THE ABDOMEN AND PELVIS WITHOUT CONTRAST CLINICAL HISTORY: Left flank pain. COMPARISON STUDY: CT of the abdomen pelvis June 28, 2022. TECHNIQUE: Axial images of the abdomen and pelvis were obtained without IV contrast. Images were reviewed in the axial, sagittal, and coronal planes. Automated exposure control was utilized for the study. A dose lowering tech nique was utilized adhering to the principles of ALARA. FINDINGS: Cardiomegaly is noted. No pneumatosis, free air or portal venous gas is present. Evaluation of the abdomen and pelvis is suboptimal on this unenhanced exam. There is hepatic steatosis. There are gallstones within gallbladder without evidence for acute cholecystitis. Unenhanced images of the spleen, adrenal glands, kidneys and pancreas are unremarkable. Water attenuation left renal lesion likely reflects a cyst. There is no hydronephrosis. There is no evidence for a bowel obstruction. No bowel wall thickening is identified on unenhanced exam. No acute fracture within the lumbar spine, pelvis or hips is identified. Note is made of several acute intramuscular hematomas within the left paraspinal musculature of the lumbar spine. The largest hematoma measures 7.5 x 4.4 x 3.6 cm. An additional intramuscular hematoma within the left piriformis muscle measures 5.3 x 2.8 cm. These hematomas contain hematocrit levels. IMPRESSION: 1. Acute intramuscular hematomas within the left paraspinal musculature of the lumbar spine and within the left piriformis muscle. The largest hematoma within the paraspinal musculature measures 7.5 x 4.4 x 3.6 cm. Hematocrit levels within the hematomas raise the possibility of anticoagulation. 2. No bowel obstruction. No bowel wall thickening on unenhanced exam. 3. Hepatic steatosis. ACT 112: Negative or not required by law. Electronically signed by: Boston Hammond M.D. 10/02/2022 9:22 PM Diagnostic Findings Chest x-ray as per my interpretation cardiomegaly, interstitial congestion EKG as per my interpretation : Rate 85, A. fib, normal axis, diffuse T wave flattening
[2022-10-03] MEDS ORDERED: MoRPHine SULFATE 4 MG/ML 1 ML CARP\\VIAL IV PRN (03:35)
[2022-10-03] MEDS ORDERED: MAGNESIUM SULFATE / D5W 1 GM/100 ML BAG IV ONE (03:35)
[2022-10-03] MEDS ORDERED: oxyCODONE HCL IR 5 MG TAB (IMMEDIATE RELEASE) PO PRN (03:35)
[2022-10-03] MEDS ORDERED: PROMETHAZINE HCL 12.5 MG in SODIUM CHLORIDE 0.9% 50 ML IV PRN (03:36)
[2022-10-03] MEDS ORDERED: POTASSIUM CHLORIDE CRTAB 20 MEQ TABCR PO ONE (05:00)
[2022-10-03] MEDS ORDERED: POLYETHYLENE (MIRALAX) 17 GM PACK PO PRN (06:01)
[2022-10-03] MEDS: ACETAMINOPHEN 325 MG TAB PO PRN (06:06)
[2022-10-03 08:49] LABS: Hematocrit (blood only) 32.8 % (34.1-44.9); Hemoglobin 11.3 g/dl (12.0-16.0)
[2022-10-03] MEDS: METOPROLOL TARTRATE 25 MG TAB PO SCH ×2 (08:52→20:22)
[2022-10-03] MEDS: FUROSEMIDE 40 MG TAB PO SCH (08:52)
[2022-10-03] MEDS: ESCITALOPRAM OXALATE 20 MG TAB PO SCH (08:53)
[2022-10-03] MEDS: LEVOTHYROXINE SODIUM 100 MCG TABLET PO SCH (08:53)
[2022-10-03] MEDS: MULTIVITAMIN TAB PO SCH (08:53)
[2022-10-03] MEDS: buPROPion XL 300 MG TABCR PO SCH (08:53)
[2022-10-03] MEDS: OXYBUTYNIN CHLORIDE XL 5 MG TABCR PO SCH (08:53)
[2022-10-03] MEDS: PREGABALIN 100 MG CAP PO SCH ×2 (08:55→20:25)
[2022-10-03 09:15] LABS: INR 1.2 (0.9-1.1); Prothrombin Time 12.3 Seconds (9.0-12.0)
[2022-10-03 09:36] LABS: BUN Creatinine Ratio 16.7 (10-20); Calcium 8.4 mg/dl (8.5-10.1); Est GFR (African American) 58.2 ml/min; Est GFR (Non-African American) 50.2 ml/min; Magnesium 1.8 mg/dl (1.7-2.4); Potassium 3.1 mmol/L (3.5-5.1)
--- NOTE | 2022-10-03 10:30 | XRay Report ---
XR chest 1V portable CLINICAL HISTORY: flank pain TECHNIQUE: Single frontal radiograph of the chest was obtained. Comparison: Comparison is made to chest radiograph 03/15/2022 FINDINGS: No lines and tubes are seen. Cardiomegaly is noted with splayed lavelle compatible with left atrial en largement. The aortic arch is calcified. Reticular interstitial opacities are seen. No evidence of pl eural effusion or pneumothorax. IMPRESSION: No acute chest disease. Cardiomegaly is noted with left atrial enlargement. ACT 112: Negative or not required by law. Electronically signed by: Mikey Meng M.D. 10/03/2022 10:29 AM
--- NOTE | 2022-10-03 13:03 | Electrocardiogram Report ---
Test Reason : Blood Pressure : / mmHG Vent. Rate : 087 BPM Atrial Rate : 090 BPM P-R Int : 000 ms QRS Dur : 092 ms QT Int : 292 ms P-R-T Axes : 000 013 -80 degrees QTc Int : 351 ms Atrial fibrillation Nonspecific ST and T wave abnormality Abnormal ECG When compared with ECG of 28-JUN-2022 14:04, Nonspecific T wave abnormality now evident in Inferior leads Nonspecific T wave abnormality, worse in Anterolateral leads QT has shortened Confirmed by Jimi Mckenna ([id number]) on 10/03/2022 1:03:04 PM Referred By: REFERRED SELF Confirmed By:Jimi Mckenna
[2022-10-03 14:02] LABS: Hematocrit (blood only) 32.8 % (34.1-44.9); Hemoglobin 11.3 g/dl (12.0-16.0)
--- NOTE | 2022-10-03 14:25 | Communication Note ---
Date of Service: October 03, 2022 Patient reports back pain has resolved Denies dizziness, chest pain, shortness of breath, palpitations Hemoglobin remained stable this morning, around 11; repeat hemoglobin this afternoon INR 1.2 Antibiotics for possible UTI, follow-up urine culture other diagnoses and plan per Dr. Man's notes Armando Cox MD
--- NOTE | 2022-10-03 15:06 | Cardiology Consultation ---
Date of Consultation October 03, 2022 Assessment & Plan (1) Intramuscular hematoma: (2) Supratherapeutic INR: (3) Neuropathy: (4) Major depression, chronic: (5) Chronic atrial fibrillation: (6) History of knee replacement: Plan This is now the patient's second spontaneous hematoma in the setting of a supratherapeutic INR despite well-controlled INR through [facility] clinic I believe she has now declared herself no longer an anticoagulation candidate despite her high [id number] score I do not believe she is a DOAC candidate given her age, weight and history of bleeding Obviously continue to hold anticoagulation for now History of Present Illness Reason for Consultation: Spontaneous thigh hematoma in the setting of supratherapeutic INR Requesting Physician: [facility] hospitalist group Attending Physician: Armando Cox MD History of Present Illness It was my pleasure to see Mrs. Wallace in cardiac consultation today October 03, 2022. She is a very pleasant 77-year-old woman who is a refugee from cardiac care for several years now for history of permanent atrial fibrillation. She presented to [facility] on 10/02/2022 with complaints of left- sided flank pain. Upon arrival she was found to have a significant hematoma with an INR greater than 9. She received vitamin K and along with Kcentra. She was seen by surgery who is not planning intervention at this time. This is the patient's second spontaneous hematoma in the setting of a supratherapeutic INR Allergies Allergy/AdvReac Type Severity Reaction Status Date / Time Penicillins Allergy Intermediate HIVES Verified 10/03/22 00:39 Sulfa (Sulfonamide Allergy Unknown ` Verified 10/03/22 00:39 Antibiotics) aspirin AdvReac Severe BLEEDING Verified 10/03/22 00:39 ULCER Home Medications Medication Instructions Recorded Confirmed Type bupropion HCl 300 mg 24 hr tablet, 300 mg PO DAILY 03/15/22 10/03/22 History extended release escitalopram oxalate 20 mg tablet 20 mg PO DAILY 03/15/22 10/03/22 History furosemide 40 mg tablet 40 mg PO DAILY 03/15/22 10/03/22 History montelukast 10 mg tablet 10 mg PO QPM 03/15/22 10/03/22 History multivitamin 1 tab PO DAILY 03/15/22 10/03/22 History oxybutynin chloride 15 mg 15 mg PO DAILY 03/15/22 10/03/22 History tablet,extended release 24 hr warfarin 5 mg tablet 5 mg PO DIRECTED 03/15/22 10/03/22 History metoprolol tartrate 25 mg tablet 25 mg PO BID 06/27/22 10/03/22 History polyethylene glycol 3350 17 gram 17 g PO DAILY PRN Constipation 06/27/22 10/03/22 History oral powder packet (Miralax) Potassium Tab 1 tab PO DAILY 10/03/22 10/03/22 History levothyroxine 100 mcg tablet 0 mcg PO DAILY 10/03/22 10/03/22 History miconazole nitrate 2 % topical 1 applic topical DIRECTED PRN .. 10/03/22 10/03/22 History ointment nystatin 100,000 unit/gram topical 1 applic topical BID 10/03/22 10/03/22 History powder (Nyamyc) pregabalin 100 mg capsule (Lyrica) 100 mg PO BID 10/03/22 10/03/22 History zinc oxide 40 % topical ointment 1 applic topical DIRECTED PRN 10/03/22 10/03/22 History Dry Skin Patient History Medical History (Updated 10/03/22 @ 15:05 by Misael Corral DO) Atrial fibrillation Cellulitis Congestive heart failure Major depression, chronic Morbid obesity Neuropathy Osteoarthritis Surgical History Hx of total knee arthroplasty Family History Other No pertinent family history Social History Smoking Status: Never smoker Tobacco Type: Cigarettes Second Hand Exposure: No; Do You Dip or Chew Tobacco: No; Tobacco Cessation Education Requested by Patient: No Hx Alcohol Use: No Hx Substance Use: No Preferred Language: Pashto Communication Ability: Effective Cargo Inspector Required: No Beliefs That Will Affect Care: None marital status: Current Living Situation: Alone Current Living Situation Comment: lives alone with occasional caregivers current occupational status: retired Other Information That Helps Us Care for You: No Feels Safe at Home: Yes Safety Concerns: Feels Safe At This Time Assistive Devices: Glasses, Walker and Wheelchair Review of Systems Review of Systems: All systems reviewed & are unremarkable except as noted in HPI & below Physical Exam Physical Exam: General: Awake, alert and oriented x 3. No acute distress. Lethargic HEENT: Normocephalic, atraumatic. Pupils equal, round and reactive to light and accommodation. Extraocular muscles are intact. Anicteric sclera. Moist mucous membranes. Neck: No JVD. No bruit. Cardiovascular: irregularly irregular, unable to appreciate murmur, rub or gallop. Pulmonary: Clear to auscultation bilaterally. No rales, rhonchi, or wheezing. Abdomen: Bowel sounds x 4, soft. No rebound, guarding or tenderness. No organomegaly. Extremities: No clubbing, cyanosis or edema. +2 pedal pulses bilaterally. Skin: Warm and dry. Results & Data ([facility]) Vital Signs (Past 12 Hours) Vital Signs Temp Pulse Pulse Resp BP BP Pulse Ox 10/03/22 11:16 36.7 C 81 18 98/62 L 95 10/03/22 07:05 105 H 10/03/22 06:16 36.6 C 81 18 103/65 91 10/03/22 04:31 96 H 14 105/55 L 96 10/03/22 04:24 100 H 14 115/81 96 10/03/22 03:31 18 117/92 96 10/03/22 03:20 96 H 14 124/89 97 10/03/22 03:15 104 H 18 143/88 H 98 10/03/22 03:05 114 H 15 112/78 95 O2 Del Method 10/03/22 11:16 Room Air 10/03/22 07:05 10/03/22 06:16 Room Air 10/03/22 04:31 Room Air 10/03/22 04:24 Room Air 10/03/22 03:31 Room Air 10/03/22 03:20 Room Air 10/03/22 03:15 Room Air 10/03/22 03:05 Room Air
[2022-10-03] MEDS: MONTELUKAST SODIUM 10 MG TABLET PO SCH (20:22)
[2022-10-04] MEDS: cefTRIAXone SODIUM 2,000 MG in DEXTROSE 5% 50 ML IV SCH (03:13)
[2022-10-04] MEDS: LEVOTHYROXINE SODIUM 100 MCG TABLET PO SCH (05:34)
[2022-10-04 08:24] LABS: Basophils # (auto) 0.02 K/uL (0-0.2); Basophils % (auto) 0.3 %; Eosinophils % (auto) 1.6 %; Hematocrit (blood only) 31.4 % (34.1-44.9); Hemoglobin 10.9 g/dl (12.0-16.0); Immature Granulocytes # (auto) 0.04 K/uL (0.00-0.02); Immature Granulocytes % (auto) 0.6 %; Lymphocytes # (auto) 0.56 K/uL (1.2-3.4); Lymphocytes % (auto) 8.9 %; Mean Corpuscular Hemoglobin 32.2 pg (25.0-34.0); Mean Corpuscular Hgb Conc 34.7 g/dL (32.0-36.0); Mean Corpuscular Volume 92.9 fL (80.0-100.0); Monocytes # (auto) 0.54 K/uL (0.24-0.82); Monocytes % (auto) 8.6 %; Neutrophils # (auto) 5.05 K/uL (1.4-6.5); Platelet Count 167 K/uL (130-400); RDW Coefficient of Variation 16.8 % (11.5-14.5); RDW Standard Deviation 56.6 fL (36.4-46.3); Red Blood Count 3.38 M/uL (3.93-5.22); White Blood Count 6.31 K/ul (4.8-10.8)
[2022-10-04 08:45] LABS: BUN Creatinine Ratio 15.1 (10-20); Calcium 8.4 mg/dl (8.5-10.1); Creatinine Clr Calc Pharmacy 70.9 ml/min; Est GFR (African American) 69.7 ml/min; Est GFR (Non-African American) 60.1 ml/min; Potassium 3.3 mmol/L (3.5-5.1)
[2022-10-04 08:46] LABS: INR 1.3 (0.9-1.1)
[2022-10-04] MEDS: OXYBUTYNIN CHLORIDE XL 5 MG TABCR PO SCH (09:00)
[2022-10-04] MEDS: buPROPion XL 300 MG TABCR PO SCH (09:03)
[2022-10-04] MEDS: ESCITALOPRAM OXALATE 20 MG TAB PO SCH (09:03)
[2022-10-04] MEDS: MULTIVITAMIN TAB PO SCH (09:06)
[2022-10-04] MEDS: PREGABALIN 100 MG CAP PO SCH ×2 (09:06→20:40)
[2022-10-04] MEDS: FUROSEMIDE 40 MG TAB PO SCH (10:28)
[2022-10-04] MEDS: METOPROLOL TARTRATE 25 MG TAB PO SCH ×2 (10:29→20:40)
[2022-10-04] MEDS ORDERED: POTASSIUM CHLORIDE CRTAB 20 MEQ TABCR PO STA (10:36)
[2022-10-04] MEDS ORDERED: HYDROCODONE/ACETAMOPHEN 5/325MG TAB PO PRN (10:48)
[2022-10-04] MEDS ORDERED: HYDROCODONE/ACETAMOPHEN 5/325MG TAB PO STA (10:49)
--- NOTE | 2022-10-04 12:30 | Hospitalist Progress Note ---
Date of Service October 04, 2022 Assessment & Plan (1) Intramuscular hematoma: Plan: PARASPINAL AND PIRIFORMIS MUSCLE HEMATOMAS Recurrent bleed In the setting of Coumadin coagulopathy, history A. fib Likely underlying functional disability -- Hemoglobin remained stable around 11 -- INR 1.2 General surgery: No surgical intervention as patient's hemoglobin is stable Cardiology service consulted: Recommend discontinuation of Coumadin or any anticoagulation therapy Continue pain control PT OT evaluation COMPLICATED UTI Urine culture: Negative Continue ceftriaxone IV day #2 chronic diastolic heart failure -- Blood pressure on the lower side, hold Lasix and metoprolol with parameters hypertension -- Per above hypothyroidism, euthyroid as of recent outpatient TSH Hypokalemia secondary to diuretic Rx -- Follow potassium ordered Left toe melanoma status post surgery/chemotherapy, patient follows with [facility]ologist prediabetes, hemoglobin A1c of 5.5 last March 2022 past tobacco abuse Medical telemetry PT OT eval DVT prophylaxis. SCDs Re: Muscle bleed DNR Admission and Anticipated Discharge Date Admission Date: October 03, 2022 Subjective Follow-up for intramuscular hematoma, etc. Seen resting in bed, sitting up, watching TV, comfortable, not in distress States she feels fine overall Back pain much better, but patient now reporting shakiness, bilateral lower leg weakness with PT today Unable to ambulate Denies fevers or chills no chest pain, dyspnea, palpitations, dizziness Review of Systems Review of Systems: all noted and negative except for above Physical Exam Physical Exam: General- oriented x 3, not in distress, speaks in sentences with no effort or accessory muscle use Eyes- anicteric Neck- no JVD Lungs- clear breath sounds bilaterally, no crackles or wheezing Heart- normal rate, regular rhythm; no murmurs Abdomen- normal bowel sounds, nondistended, soft, no tenderness Back-diffuse hematoma seen on the left lower back, left buttock, posterior left thigh Extremities- no pretibial edema, no calf tenderness Neuro- alert, oriented x 3; no gross focal neurologic deficits--motor strength 5/5, sensation 100% Skin- warm & dry Results & Data Results & Data ([facility]) Vital Signs (Past 12 Hours) Vital Signs Temp Pulse Resp BP Pulse Ox O2 Del Method 10/04/22 11:26 36.7 C 55 L 20 94/69 L 91 Room Air 10/04/22 06:45 36.7 C 90 20 99/68 L 95 Room Air 10/04/22 04:00 36.5 C 81 18 100/68 93 Room Air all noted and reviewed including below
--- NOTE | 2022-10-04 14:35 | Cardiology Progress Note ---
Date of Service October 04, 2022 Assessment & Plan (1) Intramuscular hematoma: (2) Supratherapeutic INR: (3) Neuropathy: (4) Major depression, chronic: (5) Chronic atrial fibrillation: (6) History of knee replacement: Plan This is now the patient's second spontaneous hematoma in the setting of a supratherapeutic INR despite well-controlled INR through [facility] clinic I believe she has now declared herself no longer an anticoagulation candidate despite her high [id number] score I do not believe she is a DOAC candidate given her age, weight and history of bleeding Obviously continue to hold anticoagulation for now Admission and Anticipated Discharge Date Admission Date: October 03, 2022 Subjective Patient seen and examined. Chart reviewed. Telemetry reviewed. States that she is feeling well today. Review of Systems Review of Systems: All systems reviewed & are unremarkable except as noted in HPI & below Physical Exam Physical Exam: General: Awake, alert and oriented x 3. No acute distress. Lethargic HEENT: Normocephalic, atraumatic. Pupils equal, round and reactive to light and accommodation. Extraocular muscles are intact. Anicteric sclera. Moist mucous membranes. Neck: No JVD. No bruit. Cardiovascular: irregularly irregular, unable to appreciate murmur, rub or gallop. Pulmonary: Clear to auscultation bilaterally. No rales, rhonchi, or wheezing. Abdomen: Bowel sounds x 4, soft. No rebound, guarding or tenderness. No organomegaly. Extremities: No clubbing, cyanosis or edema. +2 pedal pulses bilaterally. Skin: Warm and dry. Results & Data ([facility]) Vital Signs (Past 12 Hours) Vital Signs Temp Pulse Resp BP Pulse Ox O2 Del Method 10/04/22 11:26 36.7 C 55 L 20 94/69 L 91 Room Air 10/04/22 06:45 36.7 C 90 20 99/68 L 95 Room Air 10/04/22 04:00 36.5 C 81 18 100/68 93 Room Air
[2022-10-04] MEDS: NYSTATIN POWDER 15GM BTL EXT PRN ×2 (16:10→20:41)
[2022-10-04] MEDS ORDERED: SODIUM CHLORIDE 0.9% 1000ML 500 ML IV ONE (17:12)
[2022-10-04] MEDS: MONTELUKAST SODIUM 10 MG TABLET PO SCH (20:40)
[2022-10-05] MEDS: cefTRIAXone SODIUM 2,000 MG in DEXTROSE 5% 50 ML IV SCH (03:35)
[2022-10-05] MEDS: LEVOTHYROXINE SODIUM 100 MCG TABLET PO SCH (05:31)
[2022-10-05 10:14] LABS: Basophils # (auto) 0.01 K/uL (0-0.2); Basophils % (auto) 0.2 %; Eosinophils # (auto) 0.13 K/uL (0-0.50); Hemoglobin 10.7 g/dl (12.0-16.0); Immature Granulocytes # (auto) 0.04 K/uL (0.00-0.02); Immature Granulocytes % (auto) 0.6 %; Lymphocytes # (auto) 0.57 K/uL (1.2-3.4); Lymphocytes % (auto) 8.8 %; Mean Corpuscular Hemoglobin 32.2 pg (25.0-34.0); Mean Corpuscular Hgb Conc 34.5 g/dL (32.0-36.0); Mean Corpuscular Volume 93.4 fL (80.0-100.0); Mean Platelet Volume 11.7 fL (9.4-12.3); Monocytes # (auto) 0.56 K/uL (0.24-0.82); Monocytes % (auto) 8.7 %; Neutrophils # (auto) 5.14 K/uL (1.4-6.5); Neutrophils % (auto) 79.7 %; Platelet Count 152 K/uL (130-400); RDW Coefficient of Variation 16.8 % (11.5-14.5); RDW Standard Deviation 56.2 fL (36.4-46.3); Red Blood Count 3.32 M/uL (3.93-5.22); White Blood Count 6.45 K/ul (4.8-10.8)
[2022-10-05] MEDS: buPROPion XL 300 MG TABCR PO SCH (10:17)
[2022-10-05] MEDS: OXYBUTYNIN CHLORIDE XL 5 MG TABCR PO SCH (10:17)
[2022-10-05] MEDS: ESCITALOPRAM OXALATE 20 MG TAB PO SCH (10:17)
[2022-10-05] MEDS: MULTIVITAMIN TAB PO SCH (10:17)
[2022-10-05] MEDS: NYSTATIN POWDER 15GM BTL EXT PRN (10:17)
[2022-10-05] MEDS: METOPROLOL TARTRATE 25 MG TAB PO SCH ×2 (10:18→20:53)
[2022-10-05] MEDS: PREGABALIN 100 MG CAP PO SCH ×2 (10:28→20:51)
[2022-10-05 10:44] LABS: BUN Creatinine Ratio 13.3 (10-20); Calcium 8.5 mg/dl (8.5-10.1); Creatinine Clr Calc Pharmacy 79.4 ml/min; Est GFR (African American) 79.9 ml/min; Potassium 3.4 mmol/L (3.5-5.1)
--- NOTE | 2022-10-05 13:12 | Cardiology Progress Note ---
Date of Service October 05, 2022 Assessment & Plan (1) Intramuscular hematoma: (2) Supratherapeutic INR: (3) Neuropathy: (4) Major depression, chronic: (5) Chronic atrial fibrillation: (6) History of knee replacement: Plan This is now the patient's second spontaneous hematoma in the setting of a supratherapeutic INR despite well-controlled INR through [facility] clinic I believe she has now declared herself no longer an anticoagulation candidate despite her high [id number] score I do not believe she is a DOAC candidate given her age, weight and history of bleeding Obviously continue to hold anticoagulation for now Admission and Anticipated Discharge Date Admission Date: October 03, 2022 Subjective Patient seen and examined. Chart reviewed. Telemetry reviewed. States that she is feeling well today. Review of Systems Review of Systems: All systems reviewed & are unremarkable except as noted in HPI & below Physical Exam Physical Exam: General: Awake, alert and oriented x 3. No acute distress. Lethargic HEENT: Normocephalic, atraumatic. Pupils equal, round and reactive to light and accommodation. Extraocular muscles are intact. Anicteric sclera. Moist mucous membranes. Neck: No JVD. No bruit. Cardiovascular: irregularly irregular, unable to appreciate murmur, rub or gallop. Pulmonary: Clear to auscultation bilaterally. No rales, rhonchi, or wheezing. Abdomen: Bowel sounds x 4, soft. No rebound, guarding or tenderness. No organomegaly. Extremities: No clubbing, cyanosis or edema. +2 pedal pulses bilaterally. Skin: Warm and dry. Results & Data ([facility]) Vital Signs (Past 12 Hours) Vital Signs Temp Pulse Resp BP Pulse Ox O2 Del Method 10/05/22 11:23 36.7 C 94 H 16 96/66 L 93 Room Air 10/05/22 07:32 36.7 C 92 H 19 107/72 93 Room Air 10/05/22 03:37 37.1 C 87 18 92/59 L 91 Room Air
[2022-10-05] MEDS ORDERED: POTASSIUM CHLORIDE CRTAB 20 MEQ TABCR PO STA (17:31)
--- NOTE | 2022-10-05 17:35 | Hospitalist Progress Note ---
Date of Service October 05, 2022 Assessment & Plan (1) Intramuscular hematoma: Plan: PARASPINAL AND PIRIFORMIS MUSCLE HEMATOMAS Recurrent bleed In the setting of Coumadin coagulopathy, history A. fib Likely underlying functional disability -- Hemoglobin remained stable around 10.7-11.3 -- INR 1.2 General surgery: No surgical intervention as patient's hemoglobin is stable Cardiology service consulted: Recommend discontinuation of Coumadin or any anticoagulation therapy Continue pain control PT OT evaluation-will likely need inpatient rehab COMPLICATED UTI Urine culture: Negative Continue ceftriaxone IV day #3 Positive diarrhea, check for C. difficile chronic diastolic heart failure -- Blood pressure on the lower side, hold Lasix, and continue metoprolol with parameters hypertension -- Per above Erythematous area in the perianal region -- Daily wound care per RN, discussed with RN Will consult wound care nurse hypothyroidism, euthyroid as of recent outpatient TSH Hypokalemia secondary to diuretic Rx -- Oral potassium ordered Left toe melanoma status post surgery/chemotherapy, patient follows with [facility] oncologist prediabetes, hemoglobin A1c of 5.5 last March 2022 past tobacco abuse Medical telemetry PT OT eval: Will likely need acute rehab DVT prophylaxis. SCDs Re: Muscle bleed DNR Admission and Anticipated Discharge Date Admission Date: October 03, 2022 Subjective Follow-up for paraspinal hematoma, supratherapeutic INR, etc. Seen resting in bed, comfortable, not in distress States she feels okay overall Back pain has resolved No shortness of breath, chest pain, dizziness Reports pain over the perianal area Review of Systems Review of Systems: all noted and reviewed including below Physical Exam Physical Exam: General- oriented x 3, not in distress, speaks in sentences with no effort or accessory muscle use Eyes- anicteric Neck- no JVD Lungs- clear breath sounds bilaterally, no wheezing, no crackles Heart- normal rate, regular rhythm; no murmurs Abdomen- normal bowel sounds, nondistended, soft, nontender Left buttock-Diffuse hematoma noted, extending to the left lower back area Buttocks-positive erythema in the perianal area Extremities-mild pretibial edema, no calf tenderness Neuro- alert, oriented x 3; no gross focal neurologic deficits Skin- warm & dry Results & Data Results & Data ([facility]) Vital Signs (Past 12 Hours) Vital Signs Temp Pulse Pulse Resp BP Pulse Ox O2 Del Method 10/05/22 16:00 103 H 10/05/22 15:10 36.7 C 81 18 103/68 93 Room Air 10/05/22 08:00 88 10/05/22 08:00 Room Air 10/05/22 11:23 36.7 C 94 H 16 96/66 L 93 Room Air 10/05/22 07:32 36.7 C 92 H 19 107/72 93 Room Air all noted and reviewed including below
[2022-10-05] MEDS: MONTELUKAST SODIUM 10 MG TABLET PO SCH (20:52)
[2022-10-06] MEDS: cefTRIAXone SODIUM 2,000 MG in DEXTROSE 5% 50 ML IV SCH (04:49)
[2022-10-06] MEDS: LEVOTHYROXINE SODIUM 100 MCG TABLET PO SCH (06:02)
[2022-10-06] MEDS: ACETAMINOPHEN 325 MG TAB PO PRN (10:04)
[2022-10-06] MEDS: buPROPion XL 300 MG TABCR PO SCH (10:04)
[2022-10-06] MEDS: MULTIVITAMIN TAB PO SCH (10:04)
[2022-10-06] MEDS: ESCITALOPRAM OXALATE 20 MG TAB PO SCH (10:04)
[2022-10-06] MEDS: METOPROLOL TARTRATE 25 MG TAB PO SCH (10:04)
[2022-10-06] MEDS: PREGABALIN 100 MG CAP PO SCH (10:04)
[2022-10-06] MEDS: OXYBUTYNIN CHLORIDE XL 5 MG TABCR PO SCH (10:05)
[2022-10-06] MEDS: NYSTATIN POWDER 15GM BTL EXT PRN (10:05)
--- NOTE | 2022-10-06 11:49 | Hospitalist Progress Note ---
Date of Service October 06, 2022 Assessment & Plan (1) Intramuscular hematoma: Plan: PARASPINAL AND PIRIFORMIS MUSCLE HEMATOMAS Recurrent bleed In the setting of Coumadin coagulopathy, history A. fib underlying functional disability - -patient given K centra and Vit K -- INR decreased from > 9 to 1.2 -- Hemoglobin remained stable around 10.7-11.3 while admitted General surgery: No surgical intervention as patient's hemoglobin is stable Cardiology service consulted: Recommend discontinuation of Coumadin or any anticoagulation therapy at this point as this is patient's second episode of spontaneous significant hematoma -- back pain resolved repeat CBC In 1 week, if stable, resume ASA 81mg po daily then monitor closely UTI ruled out Urine culture: Negative patient received IV Ceftriaxone soft stools, C diff negative chronic diastolic heart failure -- Blood pressure on the lower side -- hold Lasix and Metoprolol if systolic BP < 100 -- monitor volume status closely hypertension -- Per above Erythematous area in the perianal region -- Daily wound care please follow wound care nurse hypothyroidism, euthyroid as of recent outpatient TSH Hypokalemia secondary to diuretic Rx -- Oral potassium ordered -- repeat K in 3 days Left toe melanoma status post surgery/chemotherapy, patient follows with [facility] oncologist prediabetes, hemoglobin A1c of 5.5 last March 2022 past tobacco abuse Medical telemetry PT OT eval: transition to SNF ff up with PCP in 1 week ff up with [facility] in 2-3 weeks DVT prophylaxis. SCDs Re: Muscle bleed DNR Admission and Anticipated Discharge Date Admission Date: October 03, 2022 Subjective ff up for paraspinal hematoma, etc seen resting in bed, comfortable sitting up, watching TV, in good spirits states she feels fine overall no back pain or leg pain no chest pain, dyspnea, palpitations, dizziness still feels too weak to stand no other symptoms states she is ready for discharge today to SNF Review of Systems Review of Systems: all noted and negative except for above Physical Exam Physical Exam: General- oriented x 3, not in distress, speaks in sentences with no effort or accessory muscle use Eyes- anicteric Neck- no JVD Lungs- clear breath sounds bilaterally, no rales/wheezes Heart- normal rate, regular rhythm; no murmurs Abdomen- normal bowel sounds, nondistended, soft, nontender Extremities-mild lower extremity pretibial edema, no calf tenderness hematoma seen on the left buttock area Neuro- alert, oriented x 3; no gross focal neurologic deficits Skin- warm & dry Results & Data Results & Data ([facility]) Vital Signs (Past 12 Hours) Vital Signs Temp Pulse Resp BP Pulse Ox O2 Del Method 10/06/22 11:27 36.7 C 78 19 97/61 L 93 Room Air 10/06/22 06:41 36.9 C 87 18 102/58 L 92 Room Air 10/06/22 04:00 36.9 C 75 18 104/57 L 92 Room Air all noted and reviewed including below
--- NOTE | 2022-10-06 12:06 | Discharge Summary ---
Discharge Summary Date of Service October 06, 2022 Notes For Next Care Provider Check blood pressure daily. Hold Lasix and metoprolol if blood pressure less than systolic 100. Monitor volume status closely every day. Repeat potassium level in 3 to 5 days (re: Hypokalemia) Repeat CBC in 1 week, if hemoglobin stable (10-11), may start aspirin 81 mg p.o. daily for A. fib. Please follow wound care recommendations for daily wound care of perianal skin irritation. Daily wound care. Please refer to assessment and plan below for further details. Medication Changes From Visit New: Potassium 20 mEq daily Discontinued: Coumadin Admission HPI Per Admitting Provider History obtained from patient and records. Medical history significant for chronic diastolic heart failure, A. fib on Coumadin, hypertension, hypothyroidism, mixed incontinence as per records, chronic anemia (baseline hemoglobin 11), melanoma status post surgery/chemotherapy, prediabetes, past tobacco abuse. Last [facility] confinement June 2022 for spontaneous left thigh hematoma in the setting of Coumadin coagulopathy. INR greater than 9 on admission. Patient received vitamin K and Kcentra. Coumadin later restarted outpatient. Last [facility] confinement August 18 to September 01, 2022 for septic shock secondary to Klebsiella UTI, SCOOBY, C. difficile status post vancomycin treatment. Patient discharged back to [facility]. Patient returned home 3 weeks ago. Last week patient got stuck in a lift chair. Home PT notice bruising on the left flank. Concerns about patient's safety being at home long-term. Yesterday, patient noted achy left flank pain. Dysuria symptoms. No chest pain, no SOB, no headache, no abdominal pain, no black no bloody stools. Patient feeling weak. Unable to move around. Patient brought to the ER for evaluation. Left paraspinal and piriformis muscle hematomas noted on CT. INR noted to be greater than 9. Vitamin K and Kcentra administered at the ER. 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 Admission Exam Per Admitting Provider GENERAL: Comfortable, somewhat apathetic, morbidly obese, slightly hard of hearing, episodic abdominal breathing SKIN: Pallor , warm HEENT: Bespectacled, pale palpebral conjunctivae, no ptosis, dry buccal mucosa NECK : Supple, short neck, no tenderness CHEST : Decreased breath sounds, no tenderness HEART : Tachycardic, irregular, no obvious murmurs ABDOMEN: Some distention, nontender BACK : Left flank tenderness, positive SLRs bilateral EXTREMITIES : Minimal LE swelling, no LE tenderness, no other conspicuous deformities noted NEUROLOGIC : Coherent, no facial asymmetry, slightly hard of hearing, gait and stance not assessed Principal Dx & Hospital Course #1 = Principal Diagnosis (1) Intramuscular hematoma: PARASPINAL AND PIRIFORMIS MUSCLE HEMATOMAS Recurrent bleed In the setting of Coumadin coagulopathy, history A. fib underlying functional disability CT abdomen and pelvis: Acute intramuscular hematomas within the left paraspinal musculature of the lumbar spine and within the left piriformis muscle. The largest hematoma within the paraspinal musculature measures 7.5 x 4.4 x 3.6 cm. Hematocrit levels within the hematomas raise the possibility of anticoagulation. - -patient given K centra and Vit K -- INR decreased from > 9 to 1.2 -- Hemoglobin remained stable around 10.7-11.3 while admitted General surgery: No surgical intervention as patient's hemoglobin is stable Cardiology service consulted: Recommend discontinuation of Coumadin or any anticoagulation therapy at this point as this is patient's second episode of spontaneous significant hematoma -- back pain resolved repeat CBC In 1 week, if stable, resume ASA 81mg po daily then monitor closely UTI ruled out Urine culture: Negative patient received IV Ceftriaxone soft stools, C diff negative CHRONIC DIASTOLIC HEART FAILURE -- Blood pressure on the lower side -- hold Lasix and Metoprolol if systolic BP < 100 -- monitor volume status closely HYPERTENSION -- Per above SKIN IRRITATIONIN THE PERIANAL REGION -- Daily wound care please follow wound care nurse CHOLELITHIASIS, HEPATIC STEATOSIS Seen on CT abdomen pelvis Outpatient follow-up HYPOTHYROIDISM, euthyroid as of recent outpatient TSH HYPOKALEMIA secondary to diuretic Rx -- Oral potassium ordered -- repeat K in 3 days LEFT TOE MELANOMA STATUS POST SURGERY/CHEMOTHERAPY, patient follows with [facility]ologist prediabetes, hemoglobin A1c of 5.5 last March 2022 past tobacco abuse PT OT eval: transition to SNF ff up with PCP in 1 week ff up with Assistant Front Office Manager in 2-3 weeks DVT prophylaxis. SCDs Re: Muscle bleed DNR Discharge Exam General- oriented x 3, not in distress, speaks in sentences with no effort or accessory muscle use Eyes- anicteric Neck- no JVD Lungs- clear breath sounds bilaterally, no rales/wheezes Heart- normal rate, regular rhythm; no murmurs Abdomen- normal bowel sounds, nondistended, soft, nontender Extremities-mild lower extremity pretibial edema, no calf tenderness hematoma seen on the left buttock area Neuro- alert, oriented x 3; no gross focal neurologic deficits Skin- warm & dry Updated Medication List Medication Instructions Recorded Confirmed Type bupropion HCl 300 mg 24 hr tablet, 300 mg PO DAILY 03/15/22 10/03/22 History extended release escitalopram oxalate 20 mg tablet 20 mg PO DAILY 03/15/22 10/03/22 History furosemide 40 mg tablet 40 mg PO DAILY 03/15/22 10/03/22 History montelukast 10 mg tablet 10 mg PO QPM 03/15/22 10/03/22 History multivitamin 1 tab PO DAILY 03/15/22 10/03/22 History oxybutynin chloride 15 mg 15 mg PO DAILY 03/15/22 10/03/22 History tablet,extended release 24 hr warfarin 5 mg tablet 5 mg PO DIRECTED 03/15/22 10/03/22 History metoprolol tartrate 25 mg tablet 25 mg PO BID 06/27/22 10/03/22 History polyethylene glycol 3350 17 gram 17 g PO DAILY PRN Constipation 06/27/22 10/03/22 History oral powder packet (Miralax) Potassium Tab 1 tab PO DAILY 10/03/22 10/03/22 History levothyroxine 100 mcg tablet 0 mcg PO DAILY 10/03/22 10/03/22 History miconazole nitrate 2 % topical 1 applic topical DIRECTED PRN .. 10/03/22 10/03/22 History ointment nystatin 100,000 unit/gram topical 1 applic topical BID 10/03/22 10/03/22 History powder (Nyamyc) pregabalin 100 mg capsule (Lyrica) 100 mg PO BID 10/03/22 10/03/22 History zinc oxide 40 % topical ointment 1 applic topical DIRECTED PRN 10/03/22 10/03/22 History Dry Skin potassium chloride 20 mEq oral 20 meq PO DAILY #30 ea 10/06/22 Rx packet (Klor-Con) Hospital Stay Data Consultations 10/03/22 02:16 ED Decision to Admit Stat 10/03/22 03:35 Consult Cardiology Routine Diagnostic Imagining Performed 10/02/22 19:29 CT abd pelvis wo con Stat CT OF THE ABDOMEN AND PELVIS WITHOUT CONTRAST CLINICAL HISTORY: Left flank pain. COMPARISON STUDY: CT of the abdomen pelvis June 28, 2022. TECHNIQUE: Axial images of the abdomen and pelvis were obtained without IV contrast. Images were reviewed in the axial, sagittal, and coronal planes. Automated exposure control was utilized for the study. A dose lowering technique was utilized adhering to the principles of ALARA. FINDINGS: Cardiomegaly is noted. No pneumatosis, free air or portal venous gas is present. Evaluation of the abdomen and pelvis is suboptimal on this unenhanced exam. There is hepatic steatosis. There are gallstones within gallbladder without evidence for acute cholecystitis. Unenhanced images of the spleen, adrenal glands, kidneys and pancreas are unremarkable. Water attenuation left renal lesion likely reflects a cyst. There is no hydronephrosis. There is no evidence for a bowel obstruction. No bowel wall thickening is identified on unenhanced exam. No acute fracture within the lumbar spine, pelvis or hips is identified. Note is made of several acute intramuscular hematomas within the left paraspinal musculature of the lumbar spine. The largest hematoma measures 7.5 x 4.4 x 3.6 cm. An additional intramuscular hematoma within the left piriformis muscle measures 5.3 x 2.8 cm. These hematomas contain hematocrit levels. IMPRESSION: 1. Acute intramuscular hematomas within the left paraspinal musculature of the lumbar spine and within the left piriformis muscle. The largest hematoma within the paraspinal musculature measures 7.5 x 4.4 x 3.6 cm. Hematocrit levels within the hematomas raise the possibility of anticoagulation. 2. No bowel obstruction. No bowel wall thickening on unenhanced exam. 3. Hepatic steatosis. ACT 112: Negative or not required by law. Pending Results Patient Have Any Pending Studies at Discharge: Yes Discharge Instructions Given to Patient (Per Discharging Provider) Please refer to accompanying hospital discharge summary for further details. Total Time Total Time Spent Total Time Spent (In Minutes): >30 minutes
== END 2022-10-06 15:39 | DRG 813 ==
LOC: ED 18:43 → 2W 10-03 03:31